=== PATIENT | male | born 1945 | race African-American/Black ===

== ENCOUNTER 2016-12-01 05:40 | Inpatient (IN) | payer MEDICARE, OTHER ==
[~2016-12-01] VITALS: Ht 185.4 cm; Wt 88.0 kg
[2016-12-01] VITALS (9 sets, daily range): BP systolic 74–94; BP diastolic 44–54
[~2016-12-01 05:40] MED LIST: NORCO 5-325 TA1 EACH ORAL
[2016-12-01] MEDS ORDERED: Norco 5mg/325mg tab ORAL ONE (05:45)
[2016-12-01] MEDS ORDERED: CALCIUM ACETAT667 M1 PO (05:52)
[2016-12-01] MEDS ORDERED: SENSIPAR30 MG ORAL (05:52)
[2016-12-01] MEDS ORDERED: AMIODARONE HCL400 M1 ORAL (05:52)
[2016-12-01] MEDS ORDERED: MECLIZINE HCL25 MG ORAL (05:52)
[2016-12-01] MEDS ORDERED: WARFARIN SODIUM2 MG ORAL (05:52)
[2016-12-01] MEDS ORDERED: MIDODRINE HCL10 MG ORAL (05:52)
[2016-12-01] MEDS ORDERED: LORATADINE10 M2 PO (05:52)
[2016-12-01] MEDS ORDERED: ATORVASTATIN CA40 MG ORAL (05:52)
[2016-12-01] MEDS ORDERED: RENVELA0.8 GM ORAL (05:52)
[2016-12-01] MEDS ORDERED: Midodrine 10mg tab ORAL ONE (06:00)
[2016-12-01 06:05] LABS: MEAN CORPUSCULAR HGB CONC 29.7 G/DL (32.0-36.0); MEAN CORPUSCULAR VOLUME 101 FL (80-99); MEAN PLATELET VOLUME 7.1 FL (6.5-10.1); PLATELET COUNT 131 K/UL (150-450); RED BLOOD COUNT 1.95 M/UL (4.70-6.10); RED CELL DISTRIBUTION WIDTH 19.3 % (11.6-14.8); WHITE BLOOD COUNT 7.5 K/UL (4.8-10.8)
--- NOTE | 2016-12-01 06:16 | Emergency Room Report ---
History of Present Illness General Chief Complaint: Syncope Source: Patient Present Illness HPI This is a 71-year-old male with multiple medical problems. He has a history renal failure on hemodialysis Monday, Monday, Monday, and Monday. His blood pressure normally runs low. Usually runs around systolic 80-90. He has to take Midorin to get his blood pressure up. He walks with a walker and also uses a wheelchair. He had a syncopal episode when he stood up tonight. He fell and hit his wheelchair the floor. This occurred twice. He hit his head also. He also complaining of neck pain, right shoulder, and right wrist pain. Pain is 8/10. He also has a history atrial fibrillation on Coumadin. He said that he has a leaky valve. EMS gave him IV fluid. Here he received around 300-400 mL on arrival. Allergies: Coded Allergies: IBUPROFEN (Verified Allergy, Unknown, 11/14/11) PENICILLIN G (Verified Allergy, Unknown, 11/14/11) Patient History Past Medical History: see triage record, old chart reviewed, renal disease, dialysis Past Surgical History: other Pertinent Family History: none Social History: Denies: smoking Immunizations: other Reviewed Nursing Documentation: PMH: Agreed, PSxH: Agreed Nursing Documentation-PMH Hx Cardiac Problems: Yes - LEAKY VALVE, LOW BP Hx Dialysis: Yes - MW Review of Systems Eye: Denies: blurred vision, eye pain ENT: Denies: ear pain, nose congestion, throat swelling Respiratory: Denies: cough, shortness of breath Cardiovascular: Denies: chest pain, palpitations Gastrointestinal: Denies: abdominal pain, diarrhea, nausea, vomiting Musculoskeletal: Reports: joint pain, joint swelling, Denies: back pain Skin: Denies: rash Neurological: Denies: headache, numbness Endocrine: Denies: increased thirst, increased urine Hematologic/Lymphatic: Denies: easy bruising All Other Systems: negative except mentioned in HPI Physical Exam Vital Signs Date Time Temp Pulse Resp B/P Pulse Ox O2 Delivery O2 Flow Rate FiO2 12/01/16 05:38 97.5 78 20 69/50 98 Room Air vitals with hypotension Sp02 EP Interpretation: reviewed, normal General Appearance: well appearing, no apparent distress, alert Head: normocephalic, atraumatic Eyes: bilateral eye EOMI, bilateral eye PERRL ENT: hearing grossly normal, normal pharynx Neck: full range of motion, supple, no meningismus Respiratory: chest non-tender, lungs clear, normal breath sounds Cardiovascular #1: systolic murmur, irregularly irregular Gastrointestinal: normal bowel sounds, non tender, no mass, no organomegaly, no bruit, non-distended Musculoskeletal: back normal, normal range of motion, other - Mild tenderness to palpation over right shoulder. No deformity. Tender to palpation over the dorsum of right wrist. Decreased range of motion secondary to pain. Radial pulses 2+. Psychiatric: mood/affect normal Skin: warm/dry Procedures Critical Care Time Critical Care Time Critical care is mandated in this patient who presented with syncope secondary to hypotension.. Patient require my urgent intervention to attenuate the risks of metabolic labs which may lead to cardiovascular collapse and . Critical care time is 35 minutes excluding any reportable procedure. Critical care time included evaluation, multiple reevaluation, looking at old charts, interpreting laboratory and diagnostic data, discussing case with patient and family and consultants, and charting. Splinting Splinting : Consent: Verbal Location: right wrist Pre-Made Type: velcro Splint: volar Pre-Proc Neuro Vasc Exam: normal Post-Proc Neuro Vasc Exam: normal Patient Tolerated: Well Complications: None Medical Decision Making Diagnostic Impression: Primary Impression: Syncope Qualified Codes: R55 - Syncope and collapse Additional Impressions: Anemia in chronic kidney disease Head injury due to trauma Qualified Codes: S09.90XA - Unspecified injury of head, initial encounter Cervical strain, acute Qualified Codes: S16.1XXA - Strain of muscle, fascia and tendon at neck level , initial encounter Contusion of right shoulder Qualified Codes: S40.011A - Contusion of right shoulder, initial encounter Right wrist sprain Qualified Codes: S63.501A - Unspecified sprain of right wrist, initial encounter Degenerative disc disease, cervical Atrial fibrillation Qualified Codes: I48.2 - Chronic atrial fibrillation Hypotension, unspecified 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 He is very anemic. He is more hypertensive than he usually is. His mentation is normal here. My read the CT head showed no evidence of any bleed. Lab work is still pending. INR still pending. Is no evidence any fracture dislocation. Patient will be admitted for blood transfusion. Because of his cardiac issue, he will probably dialysis afterward. Laboratory Tests Test 12/01/16 05:52 White Blood Count 7.5 K/UL (4.8-10.8) Red Blood Count 1.95 M/UL (4.70-6.10) L Hemoglobin 5.9 G/DL (14.2-18.0) *L Hematocrit 19.7 % (42.0-52.0) L Mean Corpuscular Volume 101 FL (80-99) H Mean Corpuscular Hemoglobin 30.0 PG (27.0-31.0) Mean Corpuscular Hemoglobin Concent 29.7 G/DL (32.0-36.0) L Red Cell Distribution Width 19.3 % (11.6-14.8) H Platelet Count 131 K/UL (150-450) L Mean Platelet Volume 7.1 FL (6.5-10.1) Neutrophils (%) (Auto) % (45.0-75.0) Lymphocytes (%) (Auto) % (20.0-45.0) Monocytes (%) (Auto) % (1.0-10.0) Eosinophils (%) (Auto) % (0.0-3.0) Basophils (%) (Auto) % (0.0-2.0) Neutrophils % (Manual) Pending Lymphocytes % (Manual) Pending Platelet Estimate Pending Platelet Morphology Pending Prothrombin Time 54.5 SEC (9.30-11.50) H Prothromb Time International Ratio 5.1 (0.9-1.1) *H Activated Partial Thromboplast Time 42 SEC (23-33) H Sodium Level 141 mEQ/L (135-145) Potassium Level 4.2 mEQ/L (3.4-4.9) Chloride Level 98 mEQ/L (98-107) Carbon Dioxide Level 26 mEQ/L (20-30) Anion Gap 17 (5-15) H Blood Urea Nitrogen 46 mg/dL (7-23) H Creatinine 6.8 mg/dL (0.7-1.2) H Estimat Glomerular Filtration Rate mL/min (>60) Glucose Level 99 mg/dL (74-106) Calcium Level 8.3 mg/dL (8.6-10.2) L Total Bilirubin 0.4 mg/dL (0.0-1.2) Aspartate Amino Transf (AST/SGOT) 25 U/L (5-40) Alanine Aminotransferase (ALT/SGPT) 12 U/L (3-41) Alkaline Phosphatase 82 U/L (40-129) Total Creatine Kinase 101 U/L (38-174) Creatine Kinase MB Pending Troponin I < 0.30 ng/mL (<=0.30) Total Protein 5.3 g/dL (6.6-8.7) L Albumin 3.2 g/dL (3.5-5.2) L Globulin 2.1 g/dL Albumin/Globulin Ratio 1.5 (1.0-2.7) Lab Results Impression labs with severe anemia and elevated INR. EKG Diagnostic Results Rate: normal Rhythm: other - afib/aflutter ST Segments: no acute changes Rhythm Strip Diag. Results EP Interpretation: yes Rate: 70 Rhythm: no PVC's, no ectopy, other Chest X-Ray Diagnostic Results EP Interpretation: Yes Findings: no consolidation, no pneumothorax, other - CM with vasc congestion Number of Views: 1 Other Impression Xrays of right wrist: interpreted by me. No frx. no dislocation. No STS. Other X-Ray Diagnostic Results Other X-Ray Diagnostic Results : X-Ray Ordered: Xrays of Right shoulder Date: Dec 01, 2016 Time: 06:26 EP Interpretation: Yes Findings: no fractures, no dislocation, no soft tissue swelling Number of Views: 3 CT/MRI/US Diagnostic Results CT/MRI/US Diagnostic Results : Imaging Test Ordered: CT head and CT Cspine Impression CT head: read by radiologist as neg. CT C spine: read by radiologist as degenerative changes. No frx. Last Vital Signs Date Time Temp Pulse Resp B/P Pulse Ox O2 Delivery O2 Flow Rate FiO2 12/01/16 05:38 97.5 78 20 69/50 98 Room Air Disposition: ADMITTED INPATIENT Condition: Serious YESICA LARSON M.D. Dec 01, 2016 06:16
[2016-12-01 06:22] LABS: PROTHROMBIN TIME 54.5 SEC (9.30-11.50)
[2016-12-01 06:27] LABS: ALANINE AMINOTRANSFERASE 12 U/L (3-41); ALBUMIN/GLOBULIN RATIO 1.5 (1.0-2.7); ANION GAP 17 (5-15); ASPARTATE AMINO TRANSFERASE 25 U/L (5-40); CALCIUM 8.3 mg/dL (8.6-10.2); CARBON DIOXIDE 26 mEQ/L (20-30); CHLORIDE 98 mEQ/L (98-107); CREATININE 6.8 mg/dL (0.7-1.2); HEMOLYSIS 34; POTASSIUM 4.2 mEQ/L (3.4-4.9); SODIUM 141 mEQ/L (135-145); TOTAL PROTEIN 5.3 g/dL (6.6-8.7)
[2016-12-01 06:34] LABS: INR 5.1 (0.9-1.1)
[2016-12-01 06:39] LABS: TROPONIN I < 0.30 ng/mL (<=0.30)
[2016-12-01 08:39] LABS: EOSINOPHILS % (MANUAL) 2 % (0-3); LYMPHOCYTES % (MANUAL) 11 % (20-45); NEUTROPHILS % (MANUAL) 74 % (45-75); TOTAL CELLS COUNTED 100
[2016-12-01 08:40] LABS: ANISOCYTOSIS 1+; BAND NEUTROPHILS % (MANUAL) 0 % (0-8); BASOPHILS % (MANUAL) 0 % (0-2); HYPOCHROMASIA 1+; MACROCYTES 1+; PLATELET ESTIMATE DECREASED; PLATELET MORPHOLOGY NORMAL
--- NOTE | 2016-12-01 09:50 | Diagnostic Imaging Report ---
Indication: Evidence of frontal scalp soft tissue injury Technique: spiral acquisitions obtained through the brain. Angled axial and coronal 5 x 5 mm slices were reconstructed. No IV contrast utilized. Radiation dose was minimized using automated exposure control Total dose length product 1432 mGycm. CTDIvol(s) 70 mGy Comparison: none FINDINGS: No acute hemorrhage or edema. No mass effect or midline shift. There is age-related enlargement of the ventricles and extra axial CSF spaces. There is periventricular deep white matter ischemic change. Normal rust-white differentiation. Visualized orbits are unremarkable. There is minimal bilateral maxillary sinus mucosal disease. Intact calvarium. There is soft tissue swelling of the high Central parietal scalp. This is best appreciated on the coronal images. IMPRESSION: Chronic and age-related changes. Negative for acute intracranial bleed or mass effect Minimal sinus disease This agrees with the preliminary interpretation provided overnight by [facility]. The CT scanner at [facility] is accredited by the [employer] and the scans are performed using protocols designed to limit radiation exposure to as low as reasonably achievable to attain images of sufficient resolution adequate for diagnostic evaluation
--- NOTE | 2016-12-01 11:00 | Diagnostic Imaging Report ---
Indication: TRAUMA Technique: Spiral acquisitions obtained through the cervical spine. No IV contrast utilized. Multiplanar reconstructions were generated. Total dose length product 507 mGycm. CTDIvol(s) 18 mGy Comparison: None Findings: Bony alignment normal. No prevertebral soft tissue swelling. No acute fractures. No dislocations. Vertebral body heights are preserved. There is multilevel disc degeneration There is narrowing of the anterior atlantoaxial joint. At C2-3, there is mild degenerative disc narrowing. Posterior broad-based disc protrusion results in mild narrowing of the spinal canal, exacerbated slightly by ligamentum flavum hypertrophy. Is minimal narrowing of the bilateral neural foramina. There is mild bilateral facet degeneration, left and right. At C3-4, there is severe degenerative disc narrowing. There is mild left, moderate right neural foraminal stenosis area no significant disc bulge or protrusion or spinal stenosis. There is bilateral mild facet degeneration. At C4-5, there is minimal degenerative disc narrowing. There is mild bilateral neural foraminal stenosis. No significant disc bulge or protrusion or spinal stenosis At C5-6, there is severe degenerative disc narrowing. There is degenerative remodeling of the C5 vertebral body. No significant disc bulge or protrusion or spinal stenosis. There is mild bilateral neural foraminal stenosis. At C6-7 and C7-T1, no significant disc bulge or protrusion, spinal stenosis, or neural foraminal stenosis There are small bilateral pleural effusions. Unusual submucosal calcifications are seen within the, time tonsils bilaterally, right greater than left. Impression: No acute bony trauma. Degenerative changes, as delineated on a level by level basis above Incidental finding of small bilateral pleural effusions Other findings as described This agrees with the preliminary interpretation provided overnight by [facility]. The CT scanner at [facility] is accredited by the [employer] and the scans are performed using protocols designed to limit radiation exposure to as low as reasonably achievable to attain images of sufficient resolution adequate for diagnostic evaluation.
--- NOTE | 2016-12-01 13:03 | Diagnostic Imaging Report ---
Indication: TRAUMA Technique: 3 views of the right shoulder Comparison: none Findings: No acute fractures. No dislocations. The joint spaces are preserved Impression:Negative
[2016-12-01] MEDS: Norco 5mg/325mg tab ORAL PRN (13:14)
--- NOTE | 2016-12-01 13:46 | Diagnostic Imaging Report ---
Clinical Indication:TRAUMA Technique: 3 views of the right wrist Comparison: None Findings: On the lateral view, there is a nondisplaced fracture of the triquetrum. No other acute fractures. No dislocations. The joint spaces are preserved Impression: Positive for nondisplaced triquetral fracture Findings discussed by phone with Dr. Noriega in the emergency room at the time of interpretation
--- NOTE | 2016-12-01 13:46 | Diagnostic Imaging Report ---
Indication: Chest pain Technique: One view of the chest Comparison: 05/31/2012 Findings: There is persistent mild elevation left hemidiaphragm. Some pleural fluid is now present on the right. There may be some congestive changes at the right lung base as well. The heart size is borderline enlarged. Evidence of prior CABG again demonstrated Impression: Right-sided pleural effusion and possible right-sided congestive changes. Borderline cardiomegaly Other findings as noted This agrees with the preliminary interpretation provided by the emergency room physician
--- NOTE | 2016-12-01 15:31 | Consultation ---
Consult Note Assessment/Plan Nephrology consult dictated #[id number] ELO IYER Dec 01, 2016 15:31
[2016-12-01] MEDS: Meclizine 25mg tab ORAL SCH ×2 (16:27→22:03)
[2016-12-01 16:43] LABS: FERRITIN 218 ng/mL (10-230)
[2016-12-01 17:53] LABS: HEMOLYSIS 8; IRON 69 ug/dL (59-158); TOTAL IRON BINDING CAPACITY 218 ug/dL (250-400)
[2016-12-01] MEDS: Renvela 800mg Pkt ORAL SCH (18:29)
[2016-12-01] MEDS: Midodrine 10mg tab ORAL SCH (18:30)
--- NOTE | 2016-12-01 20:08 | History and Physical Report ---
DATE OF ADMISSION: 12/01/2016 HISTORY OF PRESENT ILLNESS: The patient was admitted and seen on 12/01/2016. The patient is a very pleasant 71-year-old man who is a dialysis patient. He does the dialysis 4 times a week. He had dialysis yesterday and reports that he got home and was dizzy when he stood up. He fainted briefly. This morning when he got out of the bed he fainted again and was unconscious he believes for a few seconds. He was brought to the emergency department by paramedics. He was found to have hemoglobin of 5. His INR is 5.1. He is on Coumadin for arrhythmia. PAST MEDICAL HISTORY: He was last hospitalized in March 2016 at [facility]. 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 He has in the past hypertension, but now is hypotensive. He may have chronic obstructive pulmonary disease. History of renal cell adenocarcinoma and history of epidural abscess. ALLERGIES: Ibuprofen and penicillin. MEDICATIONS: Reviewed, he is on Coumadin. REVIEW OF SYSTEMS: He states that he has poor appetite. He is able to live independently. He has no chest pain or shortness of breath at this time. He is a past smoker. He has no sign of melena, but says that he has had a small amount of blood in the stool at times. PHYSICAL EXAMINATION: GENERAL: The patient is alert and responds appropriately. VITAL SIGNS: Show that his blood pressure has been low, down to 74/47 and 69/50 when he arrived, but presently it is up to 83/53 and 94/54. His heart rhythm is irregular and the rate is 58 to 75. Saturation is normal on room air. There is no fever. HEENT: Head is normocephalic. NECK: No jugular venous distention. CHEST: Clear. CARDIAC: Rhythm is irregular without murmur or gallop. ABDOMEN: Soft and nontender. Liver and spleen not enlarged. EXTREMITIES: No clubbing, cyanosis, or edema. SURGICAL HISTORY: Includes bilateral nephrectomy, cardiac valve surgery, hernia repair, joint replacement, dialysis, fistulas, back surgery, and tricuspid valve replacement. LABORATORY STUDIES: Reviewed. The INR is 5.1. Hemoglobin is 5.9, hematocrit 19.7, white count is normal, and platelet count is 131,000. Chemistry shows BUN of 46 and creatinine 6.8. Albumin is 3.2. IMPRESSIONS: 1. Syncope. 2. Severe anemia, possible gastrointestinal bleed. 3. Severe coagulopathy with INR 5.1 due to therapeutic overdose of Coumadin. 4. End-stage renal disease, on dialysis 4 days weekly. 5. History of valvular heart disease. 6. Atrial flutter. 7. Chronic hypotension, now severely hypotensive. PLAN: The patient was transfused in the emergency department with 2 units of packed red cells. He will be dialyzed tomorrow. He does not appear to be fluid overloaded at this time. Midodrine was continued. Coumadin was held. We will check stool for occult blood. I do not believe we need to give vitamin K at the moment. Fidel Mendoza M.D. DR: SONNY JOB#: [id number] CC: Melquiades Mcneal M.D. ; Fax#: [phone] Sullivan M.D.; Fax#: [phone] Mendoza M.D.; Fax#: [phone]
--- NOTE | 2016-12-01 20:18 | Consultation ---
DATE OF CONSULTATION: 12/01/2016 NEPHROLOGY CONSULTATION CONSULTING PHYSICIAN: Jewel Sullivan M.D. REFERRING PHYSICIAN: Fidel Mendoza M.D. REASON FOR CONSULT: The patient with end-stage renal disease, has presented with some syncope and was found to have severe anemia. HISTORY OF PRESENT ILLNESS: This is a very pleasant, 71-year-old, male with a history of end-stage renal disease secondary to polycystic kidney disease, who has been on hemodialysis since 2004. He is getting dialyzed on Monday, Monday, and Monday. Apparently, he got dialyzed yesterday on 11/30/2016 and afterwards while he was standing up he felt kind of lightheaded and passed out and it happened a second time. Paramedics were called and he was subsequently was brought to the emergency room of [facility] for further evaluation. He is on Coumadin for paroxysmal atrial fibrillation and he was found to have a INR in the range of 5.1. He states he has had some trickle blood from the rectum and some dark stools but it was not that significant. He does not have any flank pain and he was found to have a hemoglobin of 5.9 g/dL. Subsequently, he has been admitted to the hospital and I have been asked to see him for his hemodialysis needs. He denies any orthopnea or increasing shortness of breath at this point. PAST MEDICAL HISTORY: Significant for longstanding hypertension, end-stage renal disease secondary to polycystic kidney disease. He has had mechanical aortic valve, which was eventually removed and replaced by a pig valve. He has paroxysmal atrial fibrillation and has had a renal cell carcinoma status post bilateral nephrectomies. Also, he has had staph bacteremia, which apparently caused some epidural abscess also. PAST SURGICAL HISTORY: Status post aortic valve replacement initially mechanical and secondarily was replaced by a pig valve, status post bilateral nephrectomy, status post inguinal hernia repair, status post left knee replacement, status post left arm AV graft creation, status post back surgery for epidural abscess, status post mitral valve replacement, and status post tricuspid valve replacement with a bypass. MEDICATIONS: Prior to admission has been amiodarone 400 mg p.o. q.12 hours, atorvastatin 40 mg p.o. daily, calcium acetate 667 mg 2 tablets p.o. t.i.d. with each meal, 30 mg p.o. daily, Spring 5/325 mg q.6 hours p.r.n., Claritin 10 mg p.o. q.h.s., meclizine 25 mg p.o. t.i.d., midodrine 10 mg p.o. t.i.d., sevelamer 800 mg p.o. t.i.d. with each meal and warfarin 2 mg p.o. daily. ALLERGIES: Ibuprofen and penicillin. SOCIAL HISTORY: He is a former smoker. He smokes about a pack of cigarettes per day for total of 30 years. He quit 20 years ago. Denies any alcohol abuse. He is and has five children. 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 FAMILY HISTORY: The younger child has also polycystic kidney disease. He is on dialysis and seems like he is on peritoneal dialysis. REVIEW OF SYSTEMS: General: He has not had any significant weight change. Denies any chills or fever. Cardiovascular: Denies any chest pain, dyspnea with exertion, or orthopnea. Urinary: He is aneuric on hemodialysis. Neurological: Denies any paresthesia, muscle weakness, diplopia, or seizure. Gastrointestinal: He has had some small amount of rectal bleeding. I am not sure if he had melena but he has had some dark stools apparently. Respiratory: Denies any cough, purulent sputum production, hemoptysis, or wheezing. Endocrine: Never been diagnosed with diabetes mellitus. No polydipsia, polyuria, cold or heat intolerance. Hematological: He has been very anemic. He has noticed some easy bruising recently. Skin: Denies any rash or photosensitivity. The remainder of the review of the systems has been essentially negative. PHYSICAL EXAMINATION: GENERAL: He does not seem to be in much acute distress, lying down in bed flat. VITAL SIGNS: Blood pressure is 83/53, pulse of 75, respiration 18, and temperature 97.3 degrees. HEENT: Head is atraumatic. Eyes, pupils are reactive to light. No evidence of papilledema. Ears, canals are clear. Tympanic membranes are intact. Nose, nares are patent without any nasal discharge. Throat without inflammation or exudate. NECK: Supple. Jugular venous distention is within normal limits. No cervical adenopathy. No thyromegaly. HEART: Irregularly irregular. There is a 2/6 holosystolic murmur at the apex. LUNGS: Clear to auscultation. ABDOMEN: Soft. Bowel sounds positive. No hepatosplenomegaly. No evidence of CVA tenderness. EXTREMITIES: Lower extremity shows trace pedal edema. NEUROLOGICAL: Cranial nerves are intact. There is no focal neurological deficits present. LABORATORY DATA: Showing an INR of 5.1 with a Pro-time of 54.5. Sodium 141, potassium 4.2, chloride 98, carbon dioxide 26, BUN 46, and creatinine 6.8. Albumin is 3.2. LFTs within normal range. WBC 7.5, hemoglobin 5.9, hematocrit 19.7, and platelets 131,000. IMPRESSION: 1. Severe anemia most likely due to acute bleed. We need to rule out gastrointestinal bleed versus retroperitoneal bleed. 2. Evidence of hypoprothrombinemia probably at the origin of bleeding. 3. End-stage renal disease. 4. Chronic atrial fibrillation. 5. He does not seem to be in congestive heart failure at this point. PLAN: I am going to arrange for hemodialysis tomorrow. He needs to have 2 units of blood transfusion today. We are going to do some workup for anemia and a CAT scan of the abdomen and pelvis is going to be obtained to rule out retroperitoneal bleed. He might need to have a gastrointestinal consult. Stool OB is going to be sent also. Jewel Sullivan M.D. DR: DILIP JOB#: [id number] CC:
[2016-12-01] MEDS: Amiodarone 200mg tab ORAL SCH (22:01)
[2016-12-01] MEDS: Atorvastatin 80mg tab ORAL SCH (22:01)
[2016-12-01] MEDS: Calcium Acetate 667mg Tab ORAL SCH (22:01)
[2016-12-01] MEDS: Miralax 17gm pkt ORAL PRN (22:09)
[2016-12-02] VITALS (9 sets, daily range): BP systolic 73–87; BP diastolic 32–55
[2016-12-02] MEDS: Norco 5mg/325mg tab ORAL PRN ×3 (00:33→20:54)
[2016-12-02] MEDS: Miralax 17gm pkt ORAL PRN (09:38)
[2016-12-02] MEDS: Meclizine 25mg tab ORAL SCH ×3 (09:39→18:00)
[2016-12-02] MEDS: Amiodarone 200mg tab ORAL SCH (09:39)
[2016-12-02] MEDS: Renvela 800mg Pkt ORAL SCH ×5 (09:39→18:00)
[2016-12-02] MEDS: Midodrine 10mg tab ORAL SCH ×3 (09:40→18:00)
[2016-12-02 11:31] LABS: MEAN CORPUSCULAR HEMOGLOBIN 30.9 PG (27.0-31.0); MEAN CORPUSCULAR HGB CONC 31.4 G/DL (32.0-36.0); MEAN CORPUSCULAR VOLUME 98 FL (80-99); MEAN PLATELET VOLUME 5.6 FL (6.5-10.1); PLATELET COUNT 127 K/UL (150-450); RED BLOOD COUNT 1.72 M/UL (4.70-6.10); RED CELL DISTRIBUTION WIDTH 17.9 % (11.6-14.8); WHITE BLOOD COUNT 6.3 K/UL (4.8-10.8)
[2016-12-02 11:53] LABS: ALANINE AMINOTRANSFERASE 9 U/L (3-41); ALBUMIN/GLOBULIN RATIO 1.5 (1.0-2.7); ANION GAP 13 (5-15); ASPARTATE AMINO TRANSFERASE 16 U/L (5-40); CALCIUM 8.4 mg/dL (8.6-10.2); CARBON DIOXIDE 28 mEQ/L (20-30); CHLORIDE 94 mEQ/L (98-107); CREATININE 9.8 mg/dL (0.7-1.2); HEMOLYSIS 3; POTASSIUM 4.5 mEQ/L (3.4-4.9); SODIUM 135 mEQ/L (135-145); TOTAL PROTEIN 4.6 g/dL (6.6-8.7)
[2016-12-02 12:19] LABS: ANISOCYTOSIS 1+; BAND NEUTROPHILS % (MANUAL) 2 % (0-8); EOSINOPHILS % (MANUAL) 2 % (0-3); LYMPHOCYTES % (MANUAL) 12 % (20-45); NEUTROPHILS % (MANUAL) 78 % (45-75); PLATELET MORPHOLOGY NORMAL; POIKILOCYTOSIS 1+; TOTAL CELLS COUNTED 100
[2016-12-02 12:20] LABS: BASOPHILS % (MANUAL) 0 % (0-2); HYPOCHROMASIA OCCASIONAL; PLATELET ESTIMATE ADEQUATE
--- NOTE | 2016-12-02 14:26 | Nephrology Progress Note ---
Assessment/Plan Assessment 1) ESRD 2) Continues to bleed, most likely GI bleed 3) Hypoprothrombinemia Plan: Will need GI consult Will type and cross 3 units of blood and 2 units of FFP to be [id number] with HD today Also DDVAP IV Subjective Subjective He is feeling weak and sob, HGB down to 5.3, he is having dark stool, INR was not checked, feels dizzy standing up, CT of abd + pelvis was negative for retroperitoneal bleed, stool ob is negative Objective Objective Last 24 Hour Vital Signs Date Time Temp Pulse Resp B/P Pulse Ox O2 Delivery O2 Flow Rate FiO2 12/02/16 11:26 98.1 95 20 73/37 100 Nasal Cannula 3.0 12/02/16 08:17 97.2 98 20 79/39 100 Nasal Cannula 3.0 12/02/16 08:00 73 12/02/16 04:15 85/55 12/02/16 04:01 98.4 74 21 80/34 97 Nasal Cannula 12/02/16 04:00 76 12/02/16 01:00 84/46 12/02/16 00:30 98.7 68 20 87/32 98 Nasal Cannula 2.0 12/02/16 00:00 73 12/01/16 20:00 97.7 58 18 87/50 Nasal Cannula 2.0 100 12/01/16 20:00 68 12/01/16 16:00 72 12/01/16 16:00 97.0 58 18 82/44 Nasal Cannula 2.0 100 12/01/16 15:00 97.3 75 18 83/53 99 Room Air Laboratory Tests 12/01/16 16:35: Folate [Pending] 12/02/16 00:30: Stool Occult Blood Positive 12/02/16 11:10: White Blood Count 6.3, Red Blood Count 1.72L, Hemoglobin 5.3*L, Hematocrit 16.9L , Mean Corpuscular Volume 98, Mean Corpuscular Hemoglobin 30.9, Mean Corpuscular Hemoglobin Concent 31.4L, Red Cell Distribution Width 17.9H, Platelet Count 127L, Mean Platelet Volume 5.6L, Neutrophils (%) (Auto) , Lymphocytes (%) (Auto) , Monocytes (%) (Auto) , Eosinophils (%) (Auto) , Basophils (%) (Auto) , Differential Total Cells Counted 100, Neutrophils % ( Manual) 78H, Lymphocytes % (Manual) 12L, Monocytes % (Manual) 6, Eosinophils % ( Manual) 2, Basophils % (Manual) 0, Band Neutrophils 2, Platelet Estimate Adequate, Platelet Morphology Normal, Hypochromasia Occasional, Poikilocytosis 1 +, Anisocytosis 1+, Sodium Level 135, Potassium Level 4.5, Chloride Level 94L, Carbon Dioxide Level 28, Anion Gap 13, Blood Urea Nitrogen 93#H, Creatinine 9.8H , Estimat Glomerular Filtration Rate , Glucose Level 97, Calcium Level 8.4L, Total Bilirubin 0.3, Aspartate Amino Transf (AST/SGOT) 16, Alanine Aminotransferase (ALT/SGPT) 9, Alkaline Phosphatase 72, Total Protein 4.6L, Albumin 2.8L, Globulin 1.8, Albumin/Globulin Ratio 1.5 Height (Feet): 6 Height (Inches): 2.00 Weight (Pounds): 194 General Appearance: WD/WN, no apparent distress EENT: PERRL/EOMI Neck: non-tender Cardiovascular: normal peripheral pulses, normal rate Abdomen: normal bowel sounds, non tender, soft Extremities: normal range of motion Neurologic: target man II-XII grossly normal ELO IYER Dec 02, 2016 14:26
[2016-12-02] MEDS ORDERED: Desmopressin (DDAVP) Inj IV ONE (14:30)
--- NOTE | 2016-12-02 14:38 | General Progress Note ---
Assessment/Plan Assessment/Plan 1. Syncope. 2. Severe anemia, possible gastrointestinal bleed. 3. Severe coagulopathy with INR 5.1 due to therapeutic overdose of Coumadin. 4. End-stage renal disease, on dialysis 4 days weekly. 5. History of valvular heart disease. 6. Atrial flutter. 7. Chronic hypotension, now severely hypotensive. Hgb lower after 2 u transfusion still feels dizzy, weak stool + OB called GI add Protonix transfuse HD Subjective ROS Limited/Unobtainable: No Constitutional: Reports: weakness Hematologic/Lymphatic: Reports: anemia Allergies: Coded Allergies: IBUPROFEN (Verified Allergy, Unknown, 11/14/11) PENICILLIN G (Verified Allergy, Unknown, 11/14/11) Objective Last 24 Hour Vital Signs Date Time Temp Pulse Resp B/P Pulse Ox O2 Delivery O2 Flow Rate FiO2 12/02/16 11:26 98.1 95 20 73/37 100 Nasal Cannula 3.0 12/02/16 08:17 97.2 98 20 79/39 100 Nasal Cannula 3.0 12/02/16 08:00 73 12/02/16 04:15 85/55 12/02/16 04:01 98.4 74 21 80/34 97 Nasal Cannula 12/02/16 04:00 76 12/02/16 01:00 84/46 12/02/16 00:30 98.7 68 20 87/32 98 Nasal Cannula 2.0 12/02/16 00:00 73 12/01/16 20:00 97.7 58 18 87/50 Nasal Cannula 2.0 100 12/01/16 20:00 68 12/01/16 16:00 72 12/01/16 16:00 97.0 58 18 82/44 Nasal Cannula 2.0 100 12/01/16 15:00 97.3 75 18 83/53 99 Room Air Laboratory Tests 12/01/16 16:35: Folate [Pending] 12/02/16 00:30: Stool Occult Blood Positive 12/02/16 11:10: White Blood Count 6.3, Red Blood Count 1.72L, Hemoglobin 5.3*L, Hematocrit 16.9L , Mean Corpuscular Volume 98, Mean Corpuscular Hemoglobin 30.9, Mean Corpuscular Hemoglobin Concent 31.4L, Red Cell Distribution Width 17.9H, Platelet Count 127L, Mean Platelet Volume 5.6L, Neutrophils (%) (Auto) , Lymphocytes (%) (Auto) , Monocytes (%) (Auto) , Eosinophils (%) (Auto) , Basophils (%) (Auto) , Differential Total Cells Counted 100, Neutrophils % ( Manual) 78H, Lymphocytes % (Manual) 12L, Monocytes % (Manual) 6, Eosinophils % ( Manual) 2, Basophils % (Manual) 0, Band Neutrophils 2, Platelet Estimate Adequate, Platelet Morphology Normal, Hypochromasia Occasional, Poikilocytosis 1 +, Anisocytosis 1+, Sodium Level 135, Potassium Level 4.5, Chloride Level 94L, Carbon Dioxide Level 28, Anion Gap 13, Blood Urea Nitrogen 93#H, Creatinine 9.8H , Estimat Glomerular Filtration Rate , Glucose Level 97, Calcium Level 8.4L, Total Bilirubin 0.3, Aspartate Amino Transf (AST/SGOT) 16, Alanine Aminotransferase (ALT/SGPT) 9, Alkaline Phosphatase 72, Total Protein 4.6L, Albumin 2.8L, Globulin 1.8, Albumin/Globulin Ratio 1.5 Height (Feet): 6 Height (Inches): 2.00 Weight (Pounds): 194 General Appearance: no apparent distress Neck: supple Cardiovascular: normal rate Respiratory/Chest: lungs clear Abdomen: non tender, soft, no organomegaly DAYANA JOE Dec 02, 2016 14:38
--- NOTE | 2016-12-02 15:08 | Diagnostic Imaging Report ---
Indication: Abdominal pain. INR 5.1 Technique: Continuous helical transaxial imaging of the abdomen and pelvis was obtained from the lung bases to the pubic symphysis during intravenous contrast administration. Coronal 2-D reformats were also obtained. Study obtained in a Siemens sensation [address] Total Dose length Product (DLP): [address] Dose Index Volume (CTDIvol): 19 mGy Comparison: None Findings: Small bilateral pleural effusions with posterior basilar atelectasis demonstrated. Small hiatal hernia is present. There are several liver cysts. Gallstone noted. Arterial vascular calcifications are present. Punctate parenchymal calcifications in the pancreas noted. There is no retroperitoneal bleed, free fluid or free air identified. Bladder is unremarkable. There is thickening of the wall of the rectum. No evidence of bowel obstruction. Moderate stool noted. Laminectomy noted at L3 and L4. Impression: No retroperitoneal hematoma identified. Thickening of the wall of the rectum. Suspect proctitis Status post L3-L4 laminectomy. Atherosclerotic vascular disease Hiatal hernia Liver cysts Chronic calcific pancreatitis The CT scanner at [facility] is accredited by the [employer] and the scans are performed using protocols designed to limit radiation exposure to as low as reasonably achievable to attain images of sufficient resolution adequate for diagnostic evaluation.
[2016-12-02 15:35] LABS: PROTHROMBIN TIME 77.5 SEC (9.30-11.50)
[2016-12-02 15:46] LABS: INR 7.2 (0.9-1.1)
[2016-12-02] MEDS: Pantoprazole Inj IVP SCH (16:00)
[2016-12-02] MEDS ORDERED: NS IV ONE (16:00)
[2016-12-02] MEDS: Sensipar 30mg Tab ORAL SCH (16:00)
[2016-12-02] MEDS ORDERED: DESMOPRESSIN IV ONE (16:00)
[2016-12-02] MEDS ORDERED: Phytonadione 10 mg/mL 1ml amp SUBQ ONE (17:00)
[2016-12-02] MEDS ORDERED: Phytonadione 5 MG in D5W 55 ML IVPB ONE (17:30)
--- NOTE | 2016-12-02 20:35 | General Progress Note ---
Assessment/Plan Assessment/Plan Assessment - GI bleed - Coagulopathy - severe anemia - valvular heart disease - other list of medical problems as dictated Recommendations - FFP to be given STAT - Vitamin K as ordered - follow CBC and INR - possible EGD in next 24-48 hours, once INR corrected - PPI Subjective Allergies: Coded Allergies: IBUPROFEN (Verified Allergy, Unknown, 11/14/11) PENICILLIN G (Verified Allergy, Unknown, 11/14/11) Objective Last 24 Hour Vital Signs Date Time Temp Pulse Resp B/P Pulse Ox O2 Delivery O2 Flow Rate FiO2 12/02/16 16:00 96.6 59 18 80/47 Nasal Cannula 2.0 100 12/02/16 12:00 65 12/02/16 11:26 98.1 95 20 73/37 100 Nasal Cannula 3.0 12/02/16 08:17 97.2 98 20 79/39 100 Nasal Cannula 3.0 12/02/16 08:00 73 12/02/16 04:15 85/55 12/02/16 04:01 98.4 74 21 80/34 97 Nasal Cannula 12/02/16 04:00 76 12/02/16 01:00 84/46 12/02/16 00:30 98.7 68 20 87/32 98 Nasal Cannula 2.0 12/02/16 00:00 73 Laboratory Tests 12/02/16 00:30: Stool Occult Blood Positive 12/02/16 11:10: White Blood Count 6.3, Red Blood Count 1.72L, Hemoglobin 5.3*L, Hematocrit 16.9L , Mean Corpuscular Volume 98, Mean Corpuscular Hemoglobin 30.9, Mean Corpuscular Hemoglobin Concent 31.4L, Red Cell Distribution Width 17.9H, Platelet Count 127L, Mean Platelet Volume 5.6L, Neutrophils (%) (Auto) , Lymphocytes (%) (Auto) , Monocytes (%) (Auto) , Eosinophils (%) (Auto) , Basophils (%) (Auto) , Differential Total Cells Counted 100, Neutrophils % ( Manual) 78H, Lymphocytes % (Manual) 12L, Monocytes % (Manual) 6, Eosinophils % ( Manual) 2, Basophils % (Manual) 0, Band Neutrophils 2, Platelet Estimate Adequate, Platelet Morphology Normal, Hypochromasia Occasional, Poikilocytosis 1 +, Anisocytosis 1+, Sodium Level 135, Potassium Level 4.5, Chloride Level 94L, Carbon Dioxide Level 28, Anion Gap 13, Blood Urea Nitrogen 93#H, Creatinine 9.8H , Estimat Glomerular Filtration Rate , Glucose Level 97, Calcium Level 8.4L, Total Bilirubin 0.3, Aspartate Amino Transf (AST/SGOT) 16, Alanine Aminotransferase (ALT/SGPT) 9, Alkaline Phosphatase 72, Total Protein 4.6L, Albumin 2.8L, Globulin 1.8, Albumin/Globulin Ratio 1.5 12/02/16 14:30: Prothrombin Time 77.5H, Prothromb Time International Ratio 7.2*H, Activated Partial Thromboplast Time 57H Height (Feet): 6 Height (Inches): 2.00 Weight (Pounds): 194 CAROL ANN CARLOS Dec 02, 2016 20:35
[2016-12-03] VITALS: BP 77/45
[2016-12-03] MEDS: Calcium Acetate 667mg Tab ORAL SCH ×2 (02:15→21:06)
[2016-12-03] MEDS: Atorvastatin 80mg tab ORAL SCH ×2 (02:15→21:06)
[2016-12-03] MEDS: Amiodarone 200mg tab ORAL SCH ×3 (02:16→21:06)
[2016-12-03 04:00] VITALS: BP 89/49
[2016-12-03] MEDS: Norco 5mg/325mg tab ORAL PRN ×2 (06:43→17:12)
[2016-12-03 07:09] LABS: MEAN CORPUSCULAR HEMOGLOBIN 30.1 PG (27.0-31.0); MEAN CORPUSCULAR HGB CONC 32.4 G/DL (32.0-36.0); MEAN CORPUSCULAR VOLUME 93 FL (80-99); PLATELET COUNT 112 K/UL (150-450); RED BLOOD COUNT 2.25 M/UL (4.70-6.10); RED CELL DISTRIBUTION WIDTH 17.4 % (11.6-14.8); WHITE BLOOD COUNT 5.4 K/UL (4.8-10.8)
[2016-12-03 07:54] VITALS: BP 91/46
[2016-12-03 08:11] LABS: INR 2.5 (0.9-1.1); PROTHROMBIN TIME 25.9 SEC (9.30-11.50)
[2016-12-03] MEDS: Midodrine 10mg tab ORAL SCH ×3 (10:27→17:11)
[2016-12-03] MEDS: Renvela 800mg Pkt ORAL SCH ×3 (10:27→17:12)
[2016-12-03] MEDS: Sensipar 30mg Tab ORAL SCH (10:27)
[2016-12-03] MEDS: Meclizine 25mg tab ORAL SCH ×3 (10:27→17:11)
[2016-12-03] MEDS: Pantoprazole Inj IVP SCH (10:27)
[2016-12-03 10:32] LABS: ANISOCYTOSIS 1+; BAND NEUTROPHILS % (MANUAL) 0 % (0-8); BASOPHILS % (MANUAL) 0 % (0-2); EOSINOPHILS % (MANUAL) 3 % (0-3); HYPOCHROMASIA 1+; LYMPHOCYTES % (MANUAL) 14 % (20-45); NEUTROPHILS % (MANUAL) 76 % (45-75); PLATELET ESTIMATE DECREASED; PLATELET MORPHOLOGY NORMAL; TOTAL CELLS COUNTED 100
[2016-12-03] MEDS ORDERED: Tubing Blood Filter IV ONE ×2 (10:39→21:42)
[2016-12-03] MEDS ORDERED: NS 275ml ONE ×2 (10:39→21:42)
[2016-12-03 11:21] VITALS: BP 82/46
--- NOTE | 2016-12-03 13:06 | General Progress Note ---
Assessment/Plan Assessment/Plan Assessment - GI bleed - stablized - Coagulopathy - not corrected - severe anemia - better, but not yet optimal - valvular heart disease - other list of medical problems as dictated Recommendations - follow CBC and INR - more blood transfusion - possible EGD in next 24-48 hours, once INR corrected - PPI Subjective Allergies: Coded Allergies: IBUPROFEN (Verified Allergy, Unknown, 11/14/11) PENICILLIN G (Verified Allergy, Unknown, 11/14/11) Subjective Feels OK no further BM overnight no N/V INR not normal yet Objective Last 24 Hour Vital Signs Date Time Temp Pulse Resp B/P Pulse Ox O2 Delivery O2 Flow Rate FiO2 12/03/16 11:21 97.3 95 20 82/46 99 Nasal Cannula 3.0 12/03/16 07:54 97.2 94 20 91/46 99 Nasal Cannula 3.0 12/03/16 07:42 97.2 12/03/16 04:00 97.7 69 18 89/49 98 Room Air 12/03/16 04:00 58 12/03/16 00:00 97.9 68 20 77/45 97 Nasal Cannula 2.0 12/03/16 00:00 68 12/02/16 20:10 Nasal Cannula 2.0 12/02/16 20:00 76 12/02/16 20:00 97.5 66 18 76/36 Nasal Cannula 2.0 97 12/02/16 17:40 Nasal Cannula 2.0 12/02/16 16:00 96.6 59 18 80/47 Nasal Cannula 2.0 100 Intake and Output 12/02/16 12/03/16 19:00 07:00 Intake Total 470 ml 40 ml Output Total 175 ml Balance 470 ml -135 ml Intake Oral 470 ml IV Total 40 ml Output Hemodialysis UF 175 ml Laboratory Tests 12/02/16 14:30: Prothrombin Time 77.5H, Prothromb Time International Ratio 7.2*H, Activated Partial Thromboplast Time 57H 12/03/16 04:35: Prothrombin Time 25.9H, Prothromb Time International Ratio 2.5H, White Blood Count 5.4, Red Blood Count 2.25L, Hemoglobin 6.8*L, Hematocrit 20.9L, Mean Corpuscular Volume 93, Mean Corpuscular Hemoglobin 30.1, Mean Corpuscular Hemoglobin Concent 32.4, Red Cell Distribution Width 17.4H, Platelet Count 112L , Mean Platelet Volume 7.0, Neutrophils (%) (Auto) , Lymphocytes (%) (Auto) , Monocytes (%) (Auto) , Eosinophils (%) (Auto) , Basophils (%) (Auto) , Differential Total Cells Counted 100, Neutrophils % (Manual) 76H, Lymphocytes % (Manual) 14L, Monocytes % (Manual) 7, Eosinophils % (Manual) 3, Basophils % ( Manual) 0, Band Neutrophils 0, Platelet Estimate DecreasedL, Platelet Morphology Normal, Hypochromasia 1+, Anisocytosis 1+ Height (Feet): 6 Height (Inches): 2.00 Weight (Pounds): 194 Objective WDWN NCAT supple CTA RRR soft ND NT no edema nonfocal CAROL ANN CARLOS Dec 03, 2016 13:06
--- NOTE | 2016-12-03 14:20 | Nephrology Progress Note ---
Assessment/Plan Assessment 1) ESRD 2) Continues to bleed, most likely UGI bleed 3) Hypoprothrombinemia Plan: Received blood transfusion anf FFP's again today Hope EGD once INR is corrected Next HD on Monday Subjective Subjective He is feeling less dizzy, HGB is up to 6.8 after 3 units of PRBC's, INR is 2.5 post 2 units of FFP's, less melena, no c/p or sob Objective Objective Last 24 Hour Vital Signs Date Time Temp Pulse Resp B/P Pulse Ox O2 Delivery O2 Flow Rate FiO2 12/03/16 11:21 97.3 95 20 82/46 99 Nasal Cannula 3.0 12/03/16 07:54 97.2 94 20 91/46 99 Nasal Cannula 3.0 12/03/16 07:42 97.2 12/03/16 04:00 97.7 69 18 89/49 98 Room Air 12/03/16 04:00 58 12/03/16 00:00 97.9 68 20 77/45 97 Nasal Cannula 2.0 12/03/16 00:00 68 12/02/16 20:10 Nasal Cannula 2.0 12/02/16 20:00 76 12/02/16 20:00 97.5 66 18 76/36 Nasal Cannula 2.0 97 12/02/16 17:40 Nasal Cannula 2.0 12/02/16 16:00 96.6 59 18 80/47 Nasal Cannula 2.0 100 Intake and Output 12/02/16 12/03/16 19:00 07:00 Intake Total 470 ml 40 ml Output Total 175 ml Balance 470 ml -135 ml Intake Oral 470 ml IV Total 40 ml Output Hemodialysis UF 175 ml Laboratory Tests 12/02/16 14:30: Prothrombin Time 77.5H, Prothromb Time International Ratio 7.2*H, Activated Partial Thromboplast Time 57H 12/03/16 04:35: Prothrombin Time 25.9H, Prothromb Time International Ratio 2.5H, White Blood Count 5.4, Red Blood Count 2.25L, Hemoglobin 6.8*L, Hematocrit 20.9L, Mean Corpuscular Volume 93, Mean Corpuscular Hemoglobin 30.1, Mean Corpuscular Hemoglobin Concent 32.4, Red Cell Distribution Width 17.4H, Platelet Count 112L , Mean Platelet Volume 7.0, Neutrophils (%) (Auto) , Lymphocytes (%) (Auto) , Monocytes (%) (Auto) , Eosinophils (%) (Auto) , Basophils (%) (Auto) , Differential Total Cells Counted 100, Neutrophils % (Manual) 76H, Lymphocytes % (Manual) 14L, Monocytes % (Manual) 7, Eosinophils % (Manual) 3, Basophils % ( Manual) 0, Band Neutrophils 0, Platelet Estimate DecreasedL, Platelet Morphology Normal, Hypochromasia 1+, Anisocytosis 1+ Height (Feet): 6 Height (Inches): 2.00 Weight (Pounds): 194 General Appearance: WD/WN, no apparent distress EENT: PERRL/EOMI Neck: non-tender, normal alignment Cardiovascular: normal rate, regular rhythm Respiratory/Chest: chest wall non-tender, lungs clear Abdomen: normal bowel sounds, non tender, soft 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
[2016-12-03 14:51] LABS: MEAN CORPUSCULAR HEMOGLOBIN 29.8 PG (27.0-31.0); MEAN CORPUSCULAR VOLUME 93 FL (80-99); PLATELET COUNT 116 K/UL (150-450); RED BLOOD COUNT 2.61 M/UL (4.70-6.10); RED CELL DISTRIBUTION WIDTH 16.6 % (11.6-14.8); WHITE BLOOD COUNT 6.2 K/UL (4.8-10.8)
[2016-12-03 15:00] LABS: INR 2.3 (0.9-1.1); PROTHROMBIN TIME 23.6 SEC (9.30-11.50)
[2016-12-03 15:34] LABS: EOSINOPHILS % (MANUAL) 2 % (0-3); LYMPHOCYTES % (MANUAL) 14 % (20-45); NEUTROPHILS % (MANUAL) 81 % (45-75); TOTAL CELLS COUNTED 100
[2016-12-03 15:35] LABS: ANISOCYTOSIS 1+; HYPOCHROMASIA 1+; PLATELET MORPHOLOGY NORMAL
[2016-12-03 15:36] LABS: BAND NEUTROPHILS % (MANUAL) 0 % (0-8); BASOPHILS % (MANUAL) 0 % (0-2); PLATELET ESTIMATE DECREASED
[2016-12-03 16:00] VITALS: BP 89/51
--- NOTE | 2016-12-03 18:22 | Pulmonology Progress Note ---
Assessment/Plan Assessment/Plan 1. Syncope. 2. Severe anemia, possible gastrointestinal bleed. 3. Severe coagulopathy with INR 5.1 due to therapeutic overdose of Coumadin. 4. End-stage renal disease, on dialysis 4 days weekly. 5. History of valvular heart disease. 6. Atrial flutter. 7. Chronic hypotension, now severely hypotensive. still requires further prbc may need scope next 24-48 hours fall precautions add Protonix Watch io HD per renal Subjective Constitutional: Reports: no symptoms HEENT: Repors: no symptoms Respiratory: Reports: no symptoms Cardiovascular: Reports: no symptoms Gastrointestinal/Abdominal: Reports: no symptoms Genitourinary: Reports: no symptoms Neurologic: Reports: no symptoms Allergies: Coded Allergies: IBUPROFEN (Verified Allergy, Unknown, 11/14/11) PENICILLIN G (Verified Allergy, Unknown, 11/14/11) Subjective feeling better today no cp nv or bleeding breathing is much improved on o2 tolerating po no further syncope noted, but still with some dizziness, better than yesterday INR 2.5 HGB 7.8 this afternoon. Objective Last 24 Hour Vital Signs Date Time Temp Pulse Resp B/P Pulse Ox O2 Delivery O2 Flow Rate FiO2 12/03/16 16:00 97.3 88 20 89/51 100 Nasal Cannula 2.0 12/03/16 12:00 53 12/03/16 11:21 97.3 95 20 82/46 99 Nasal Cannula 3.0 12/03/16 08:00 84 12/03/16 07:54 97.2 94 20 91/46 99 Nasal Cannula 3.0 12/03/16 07:42 97.2 12/03/16 04:00 97.7 69 18 89/49 98 Room Air 12/03/16 04:00 58 12/03/16 00:00 97.9 68 20 77/45 97 Nasal Cannula 2.0 12/03/16 00:00 68 12/02/16 20:10 Nasal Cannula 2.0 12/02/16 20:00 76 12/02/16 20:00 97.5 66 18 76/36 Nasal Cannula 2.0 97 Intake and Output 12/02/16 12/03/16 19:00 07:00 Intake Total 470 ml 40 ml Output Total 175 ml Balance 470 ml -135 ml Intake Oral 470 ml IV Total 40 ml Output Hemodialysis UF 175 ml General Appearance: WD/WN HEENT: atraumatic, anicteric Respiratory/Chest: lungs clear, normal breath sounds Cardiovascular: normal rate, regular rhythm Extremities: no cyanosis Skin: no rash, no lesions Neurologic/Psychiatric: oriented x 3, responsive Lymphatic: no neck adenopathy, no groin adenopathy Musculoskeletal: normal muscle bulk, no effusion Microbiology Date/Time Source Procedure Growth Status 12/01/16 11:15 Nasal Nares MRSA Culture - Final NO METHICILLIN RESISTANT STAPH AUREUS... Complete 12/01/16 11:15 Rectum VRE Culture - Final NO VANCOMYCIN RESISTANT ENTEROCOCCUS ... Complete Laboratory Tests 12/03/16 04:35: White Blood Count 5.4, Red Blood Count 2.25L, Hemoglobin 6.8*L, Hematocrit 20.9L , Mean Corpuscular Volume 93, Mean Corpuscular Hemoglobin 30.1, Mean Corpuscular Hemoglobin Concent 32.4, Red Cell Distribution Width 17.4H, Platelet Count 112L, Mean Platelet Volume 7.0, Neutrophils (%) (Auto) , Lymphocytes (%) (Auto) , Monocytes (%) (Auto) , Eosinophils (%) (Auto) , Basophils (%) (Auto) , Differential Total Cells Counted 100, Neutrophils % ( Manual) 76H, Lymphocytes % (Manual) 14L, Monocytes % (Manual) 7, Eosinophils % ( Manual) 3, Basophils % (Manual) 0, Band Neutrophils 0, Platelet Estimate DecreasedL, Platelet Morphology Normal, Hypochromasia 1+, Anisocytosis 1+, Prothrombin Time 25.9H, Prothromb Time International Ratio 2.5H 12/03/16 14:15: White Blood Count 6.2, Red Blood Count 2.61L, Hemoglobin 7.8L, Hematocrit 24.3L , Mean Corpuscular Volume 93, Mean Corpuscular Hemoglobin 29.8, Mean Corpuscular Hemoglobin Concent 32.0, Red Cell Distribution Width 16.6H, Platelet Count 116L, Mean Platelet Volume 6.0L, Neutrophils (%) (Auto) , Lymphocytes (%) (Auto) , Monocytes (%) (Auto) , Eosinophils (%) (Auto) , Basophils (%) (Auto) , Differential Total Cells Counted 100, Neutrophils % ( Manual) 81H, Lymphocytes % (Manual) 14L, Monocytes % (Manual) 3, Eosinophils % ( Manual) 2, Basophils % (Manual) 0, Band Neutrophils 0, Platelet Estimate DecreasedL, Platelet Morphology Normal, Hypochromasia 1+, Anisocytosis 1+ 12/03/16 14:20: Prothrombin Time 23.6H, Prothromb Time International Ratio 2.3H Current Medications Medications (Trade) Dose Ordered Sig/Clotilde Route PRN Reason Start Time Stop Time Status Last Admin Dose Admin Acetaminophen/ Hydrocodone Bitart ([place] 5/325) 1 tab Q6H PRN ORAL For Pain 12/01/16 13:15 12/08/16 13:14 12/03/16 17:12 Amiodarone HCl (Cordarone) 200 mg EVERY 12 HOURS ORAL 12/01/16 21:00 12/31/16 20:59 12/03/16 10:27 Atorvastatin Calcium (Lipitor) 80 mg BEDTIME ORAL 12/01/16 21:00 12/31/16 20:59 12/03/16 02:15 Calcium Acetate (Phoslo) 667 mg BEDTIME ORAL 12/01/16 21:00 12/31/16 20:59 12/03/16 02:15 Cinacalcet (Sensipar) 60 mg DAILY ORAL 12/02/16 16:00 01/01/17 15:59 12/03/16 10:27 Meclizine HCl (Antivert) 25 mg THREE TIMES A DAY ORAL 12/01/16 15:00 12/31/16 14:59 12/03/16 17:11 Midodrine (Pro-Amatine) 10 mg THREE TIMES A DAY ORAL 12/01/16 18:00 12/31/16 17:59 12/03/16 17:11 Pantoprazole (Protonix) 40 mg DAILY IVP 12/02/16 16:00 01/01/17 15:59 12/03/16 10:27 Polyethylene Glycol (Miralax) 17 gm DAILYPRN PRN ORAL Constipation 12/01/16 18:45 12/31/16 18:44 12/02/16 09:38 Sevelamer Carbonate (Renvela) 800 mg THREE TIMES A DAY ORAL 12/01/16 18:00 12/31/16 17:59 12/03/16 17:12 GUILLAUME FLANAGAN DO Dec 03, 2016 18:22
[2016-12-03 20:00] VITALS: BP 97/49
[2016-12-04 00:11] VITALS: BP 99/57
[2016-12-04 04:15] VITALS: BP 93/55
[2016-12-04 07:39] LABS: BASOPHILS % (AUTO) 0.8 % (0.0-2.0); EOSINOPHILS % (AUTO) 2.7 % (0.0-3.0); LYMPHOCYTES % (AUTO) 11.5 % (20.0-45.0); MEAN CORPUSCULAR HEMOGLOBIN 30.4 PG (27.0-31.0); MEAN CORPUSCULAR HGB CONC 32.4 G/DL (32.0-36.0); MEAN CORPUSCULAR VOLUME 94 FL (80-99); MONOCYTES % (AUTO) 10.1 % (1.0-10.0); NEUTROPHILS % (AUTO) 74.9 % (45.0-75.0); PLATELET COUNT 113 K/UL (150-450); RED BLOOD COUNT 2.63 M/UL (4.70-6.10); WHITE BLOOD COUNT 7.1 K/UL (4.8-10.8)
[2016-12-04 07:52] LABS: ANION GAP 14 (5-15); CALCIUM 8.4 mg/dL (8.6-10.2); CARBON DIOXIDE 27 mEQ/L (20-30); CHLORIDE 94 mEQ/L (98-107); CREATININE 10.1 mg/dL (0.7-1.2); HEMOLYSIS 6; POTASSIUM 4.6 mEQ/L (3.4-4.9); SODIUM 135 mEQ/L (135-145)
[2016-12-04 07:58] VITALS: BP 98/52
[2016-12-04 08:06] LABS: INR 1.7 (0.9-1.1); PROTHROMBIN TIME 17.7 SEC (9.30-11.50)
[2016-12-04] MEDS: Miralax 17gm pkt ORAL PRN (09:35)
[2016-12-04] MEDS: Norco 5mg/325mg tab ORAL PRN (09:35)
[2016-12-04] MEDS: Sensipar 30mg Tab ORAL SCH (09:36)
[2016-12-04] MEDS: Renvela 800mg Pkt ORAL SCH ×3 (09:36→18:00)
[2016-12-04] MEDS: Midodrine 10mg tab ORAL SCH ×3 (09:36→18:48)
[2016-12-04] MEDS: Meclizine 25mg tab ORAL SCH ×3 (09:36→18:48)
[2016-12-04] MEDS: Amiodarone 200mg tab ORAL SCH ×2 (09:37→20:52)
[2016-12-04] MEDS: Pantoprazole Inj IVP SCH (09:38)
[2016-12-04 11:32] VITALS: BP 111/69
--- NOTE | 2016-12-04 12:39 | Nephrology Progress Note ---
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 (4) Anemia in chronic kidney disease (5) Atrial fibrillation Plan he feels better, hd 12/05, [id number] epogen Subjective Constitutional: Reports: weakness HEENT: Reports: no symptoms Genitourinary: Reports: no symptoms Neurologic/Psychiatric: Reports: no symptoms Objective Objective Last 24 Hour Vital Signs Date Time Temp Pulse Resp B/P Pulse Ox O2 Delivery O2 Flow Rate FiO2 12/04/16 11:32 97.5 68 20 111/69 100 Nasal Cannula 3.0 12/04/16 08:00 78 12/04/16 07:58 97.0 103 20 98/52 93 Nasal Cannula 3.0 12/04/16 04:15 98.3 69 21 93/55 94 Room Air 12/04/16 04:00 80 12/04/16 00:11 97.9 65 20 99/57 99 Room Air 12/04/16 00:00 76 12/03/16 20:00 98.1 66 20 97/49 95 Nasal Cannula 2.0 12/03/16 20:00 66 12/03/16 18:11 97.3 12/03/16 16:00 68 12/03/16 16:00 97.3 88 20 89/51 100 Nasal Cannula 2.0 Intake and Output 12/03/16 12/04/16 19:00 07:00 Intake Total 570 ml 100 ml Balance 570 ml 100 ml Intake Oral 490 ml 100 ml IV Total 80 ml # Bowel Movements 1 Laboratory Tests 12/03/16 14:15: White Blood Count 6.2, Red Blood Count 2.61L, Hemoglobin 7.8L, Hematocrit 24.3L , Mean Corpuscular Volume 93, Mean Corpuscular Hemoglobin 29.8, Mean Corpuscular Hemoglobin Concent 32.0, Red Cell Distribution Width 16.6H, Platelet Count 116L, Mean Platelet Volume 6.0L, Neutrophils (%) (Auto) , Lymphocytes (%) (Auto) , Monocytes (%) (Auto) , Eosinophils (%) (Auto) , Basophils (%) (Auto) , Differential Total Cells Counted 100, Neutrophils % ( Manual) 81H, Lymphocytes % (Manual) 14L, Monocytes % (Manual) 3, Eosinophils % ( Manual) 2, Basophils % (Manual) 0, Band Neutrophils 0, Platelet Estimate DecreasedL, Platelet Morphology Normal, Hypochromasia 1+, Anisocytosis 1+ 12/03/16 14:20: Prothrombin Time 23.6H, Prothromb Time International Ratio 2.3H 12/04/16 06:15: White Blood Count 7.1, Red Blood Count 2.63L, Hemoglobin 8.0L, Hematocrit 24.7L , Mean Corpuscular Volume 94, Mean Corpuscular Hemoglobin 30.4, Mean Corpuscular Hemoglobin Concent 32.4, Red Cell Distribution Width 17.0H, Platelet Count 113L, Mean Platelet Volume 7.0, Neutrophils (%) (Auto) 74.9, Lymphocytes (%) (Auto) 11.5L, Monocytes (%) (Auto) 10.1H, Eosinophils (%) (Auto ) 2.7, Basophils (%) (Auto) 0.8, Prothrombin Time 17.7H, Prothromb Time International Ratio 1.7H, Sodium Level 135, Potassium Level 4.6, Chloride Level 94L, Carbon Dioxide Level 27, Anion Gap 14, Blood Urea Nitrogen 94H, Creatinine 10.1H, Estimat Glomerular Filtration Rate , Glucose Level 96, Calcium Level 8.4L Height (Feet): 6 Height (Inches): 2.00 Weight (Pounds): 194 General Appearance: no apparent distress EENT: normal ENT inspection Neck: normal alignment Cardiovascular: regularly irregular Respiratory/Chest: lungs clear, normal breath sounds Abdomen: non tender, soft, no organomegaly Extremities: other - no edema 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
--- NOTE | 2016-12-04 14:47 | General Progress Note ---
Assessment/Plan Assessment/Plan Assessment - GI bleed - stablized - Coagulopathy - severe anemia - better, but not yet optimal - valvular heart disease - other list of medical problems as dictated Recommendations - follow CBC and INR - EGD in am - PPI Subjective Allergies: Coded Allergies: IBUPROFEN (Verified Allergy, Unknown, 11/14/11) PENICILLIN G (Verified Allergy, Unknown, 11/14/11) Subjective Feels OK (+) Brown BM no N/V INR lower Objective Last 24 Hour Vital Signs Date Time Temp Pulse Resp B/P Pulse Ox O2 Delivery O2 Flow Rate FiO2 12/04/16 12:00 64 12/04/16 11:32 97.5 68 20 111/69 100 Nasal Cannula 3.0 12/04/16 08:00 78 12/04/16 07:58 97.0 103 20 98/52 93 Nasal Cannula 3.0 12/04/16 04:15 98.3 69 21 93/55 94 Room Air 12/04/16 04:00 80 12/04/16 00:11 97.9 65 20 99/57 99 Room Air 12/04/16 00:00 76 12/03/16 20:00 98.1 66 20 97/49 95 Nasal Cannula 2.0 12/03/16 20:00 66 12/03/16 18:11 97.3 12/03/16 16:00 68 12/03/16 16:00 97.3 88 20 89/51 100 Nasal Cannula 2.0 Intake and Output 12/03/16 12/04/16 19:00 07:00 Intake Total 570 ml 100 ml Balance 570 ml 100 ml Intake Oral 490 ml 100 ml IV Total 80 ml # Bowel Movements 1 Laboratory Tests 12/04/16 06:15: White Blood Count 7.1, Red Blood Count 2.63L, Hemoglobin 8.0L, Hematocrit 24.7L , Mean Corpuscular Volume 94, Mean Corpuscular Hemoglobin 30.4, Mean Corpuscular Hemoglobin Concent 32.4, Red Cell Distribution Width 17.0H, Platelet Count 113L, Mean Platelet Volume 7.0, Neutrophils (%) (Auto) 74.9, Lymphocytes (%) (Auto) 11.5L, Monocytes (%) (Auto) 10.1H, Eosinophils (%) (Auto ) 2.7, Basophils (%) (Auto) 0.8, Prothrombin Time 17.7H, Prothromb Time International Ratio 1.7H, Sodium Level 135, Potassium Level 4.6, Chloride Level 94L, Carbon Dioxide Level 27, Anion Gap 14, Blood Urea Nitrogen 94H, Creatinine 10.1H, Estimat Glomerular Filtration Rate , Glucose Level 96, Calcium Level 8.4L Height (Feet): 6 Height (Inches): 2.00 Weight (Pounds): 194 Objective WDWN NCAT supple CTA RRR soft ND NT no edema nonfocal CAROL ANN CARLOS Dec 04, 2016 14:47
[2016-12-04 16:00] VITALS: BP 108/56
[2016-12-04 19:41] VITALS: BP 106/60
--- NOTE | 2016-12-04 19:56 | Pulmonology Progress Note ---
Assessment/Plan Assessment/Plan 1. Syncope. 2. Severe anemia, possible gastrointestinal bleed. 3. Severe coagulopathy with INR 5.1 due to therapeutic overdose of Coumadin. 4. End-stage renal disease, on dialysis 4 days weekly. 5. History of valvular heart disease. 6. Atrial flutter. 7. Chronic hypotension, now severely hypotensive. hgb stable, monitor closely for endoscopy in the am fall precautions add Protonix Watch io HD per renal Subjective Constitutional: Reports: no symptoms HEENT: Repors: no symptoms Respiratory: Reports: no symptoms Cardiovascular: Reports: no symptoms Gastrointestinal/Abdominal: Reports: no symptoms Genitourinary: Reports: no symptoms Musculoskeletal: Reports: pain - right shoulder Allergies: Coded Allergies: IBUPROFEN (Verified Allergy, Unknown, 11/14/11) PENICILLIN G (Verified Allergy, Unknown, 11/14/11) Subjective continues to be feeling better no cp nv or bleeding breathing is much improved on o2 tolerating po no further syncope noted, less dizziness today for HD in am Objective Last 24 Hour Vital Signs Date Time Temp Pulse Resp B/P Pulse Ox O2 Delivery O2 Flow Rate FiO2 12/04/16 19:41 97.7 67 18 106/60 94 Nasal Cannula 3.0 12/04/16 19:40 67 12/04/16 16:00 97.9 50 20 108/56 98 Nasal Cannula 2.0 12/04/16 12:00 64 12/04/16 11:32 97.5 68 20 111/69 100 Nasal Cannula 3.0 12/04/16 08:00 78 12/04/16 07:58 97.0 103 20 98/52 93 Nasal Cannula 3.0 12/04/16 04:15 98.3 69 21 93/55 94 Room Air 12/04/16 04:00 80 12/04/16 00:11 97.9 65 20 99/57 99 Room Air 12/04/16 00:00 76 12/03/16 20:00 98.1 66 20 97/49 95 Nasal Cannula 2.0 12/03/16 20:00 66 Intake and Output 12/03/16 12/04/16 19:00 07:00 Intake Total 570 ml 100 ml Balance 570 ml 100 ml Intake Oral 490 ml 100 ml IV Total 80 ml # Bowel Movements 1 General Appearance: WD/WN HEENT: atraumatic, anicteric Respiratory/Chest: lungs clear, normal breath sounds Cardiovascular: normal rate, regular rhythm Abdomen: soft, non tender, no organomegaly Extremities: no cyanosis Skin: no rash Neurologic/Psychiatric: alert, oriented x 3 Lymphatic: no neck adenopathy, no groin adenopathy Musculoskeletal: normal muscle bulk, no effusion Laboratory Tests 12/04/16 06:15: White Blood Count 7.1, Red Blood Count 2.63L, Hemoglobin 8.0L, Hematocrit 24.7L , Mean Corpuscular Volume 94, Mean Corpuscular Hemoglobin 30.4, Mean Corpuscular Hemoglobin Concent 32.4, Red Cell Distribution Width 17.0H, Platelet Count 113L, Mean Platelet Volume 7.0, Neutrophils (%) (Auto) 74.9, Lymphocytes (%) (Auto) 11.5L, Monocytes (%) (Auto) 10.1H, Eosinophils (%) (Auto ) 2.7, Basophils (%) (Auto) 0.8, Prothrombin Time 17.7H, Prothromb Time International Ratio 1.7H, Sodium Level 135, Potassium Level 4.6, Chloride Level 94L, Carbon Dioxide Level 27, Anion Gap 14, Blood Urea Nitrogen 94H, Creatinine 10.1H, Estimat Glomerular Filtration Rate , Glucose Level 96, Calcium Level 8.4L Current Medications Medications (Trade) Dose Ordered Sig/Clotilde Route PRN Reason Start Time Stop Time Status Last Admin Dose Admin Acetaminophen/ Hydrocodone Bitart (Laurel 5/325) 1 tab Q6H PRN ORAL For Pain 12/01/16 13:15 12/08/16 13:14 12/04/16 09:35 Amiodarone HCl (Cordarone) 200 mg EVERY 12 HOURS ORAL 12/01/16 21:00 12/31/16 20:59 12/04/16 09:37 Atorvastatin Calcium (Lipitor) 80 mg BEDTIME ORAL 12/01/16 21:00 12/31/16 20:59 12/03/16 21:06 Calcium Acetate (Phoslo) 667 mg BEDTIME ORAL 12/01/16 21:00 12/31/16 20:59 12/03/16 21:06 Cinacalcet (Sensipar) 60 mg DAILY ORAL 12/02/16 16:00 01/01/17 15:59 12/04/16 09:36 Epoetin Randolph (Procrit (for ESRD on dialysis)) 7,000 units MON-MON-MON SUBQ 12/05/16 21:00 01/04/17 20:59 Meclizine HCl (Antivert) 25 mg THREE TIMES A DAY ORAL 12/01/16 15:00 12/31/16 14:59 12/04/16 18:48 Midodrine (Pro-Amatine) 10 mg THREE TIMES A DAY ORAL 12/01/16 18:00 12/31/16 17:59 12/04/16 18:48 Pantoprazole 40 mg 40 mg DAILY IVP 12/02/16 16:00 01/01/17 15:59 12/04/16 09:38 Polyethylene Glycol (Miralax) 17 gm DAILYPRN PRN ORAL Constipation 12/01/16 18:45 12/31/16 18:44 12/04/16 09:35 Sevelamer Carbonate (Renvela) 800 mg THREE TIMES A DAY ORAL 12/01/16 18:00 12/31/16 17:59 12/03/16 17:12 Sodium Chloride (Sodium Chloride 1000ml bag) 1,000 ml @ 500 mls/hr Q2H PRN IVLG sbp<90 during hd 12/05/16 12:35 01/04/17 12:34 GUILLAUME FLANAGAN DO Dec 04, 2016 19:56
[2016-12-04] MEDS: Calcium Acetate 667mg Tab ORAL SCH (20:51)
[2016-12-04] MEDS: Atorvastatin 80mg tab ORAL SCH (20:52)
[2016-12-05] VITALS (10 sets, daily range): BP systolic 98–118; BP diastolic 58–76
--- NOTE | 2016-12-05 08:48 | Cardiology Report ---
APPROVED REPORT EKG Measurement Heart [id number] Atrial flutter with variable AV block Rightward axis Nonspecific intraventricular conduction delay Nonspecific T wave abnormality Prolonged QT Abnormal ECG
--- NOTE | 2016-12-05 08:58 | Consultation ---
DATE OF CONSULTATION: 12/02/2016 GASTROENTEROLOGY CONSULTATION CONSULTING PHYSICIAN: Ileana Chapman M.D. CHIEF COMPLAINT: I was asked to see this patient by Dr. Fidel Mendoza for evaluation of anemia and gastrointestinal bleeding. HISTORY OF PRESENT ILLNESS: The patient is a pleasant 71-year-old man who is on emt intermediate dialysis, who came to the hospital due to dizziness and syncope. He fainted when he was trying to get out of bed, but felt that he lost consciousness . He was brought to the emergency room and was found to have a INR of 5.1. He is on . The patient had an endoscopy and he is not aware of the details. He does have anemia of chronic disease of anemia due to his dialysis. He denies any abdominal pain, but black stools. He is both on aspirin and Coumadin at home. He cannot recall having colonoscopy. PAST MEDICAL HISTORY: History of chronic renal failure, on dialysis; history of chronic diastolic heart failure, history of respiratory failure, pleural effusions, pulmonary hypertension, , history of polycystic kidney disease, , chronic anemia, , history of paroxysmal atrial fibrillation, history of mitral valve endocarditis, status post valve replacement. 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 ALLERGIES: Ibuprofen and penicillin. MEDICATIONS: See chart list for details. SOCIAL HISTORY: The patient is a former smoker. . He lives independently. FAMILY HISTORY: Noncontributory. REVIEW OF SYSTEMS: Otherwise negative. PHYSICAL EXAMINATION: GENERAL: This is a pleasant man, seen in his room. HEENT: Normocephalic and atraumatic. Sclerae are anicteric. Oropharynx clear. NECK: Supple. CHEST: Clear to auscultation. CARDIOVASCULAR: Regular rate. ABDOMEN: Soft. Good bowel sounds. EXTREMITIES: Revealed no edema. LABORATORY DATA: Laboratory data were noted. ASSESSMENT: This patient presents with profound anemia and the possibility of black stools. He did have some syncope and therefore his anemia is significantly. renal failure. as well as . I will give him some vitamin K . Once his INR is corrected, undergo endoscopy to evaluate the upper gastrointestinal tract. The patient will also be advised to have a colostomy at a later date. RECOMMENDATIONS: 1. Hold Coumadin. 2. Fresh frozen plasma. 3. Vitamin K. 4. Serial CBC. 5. Endoscopy when stabilized. Thank you for asking me to participate in the care of this patient. Ileana Chapman M.D. DR: LOUISE JOB#: [id number] CC:
[2016-12-05] MEDS: Midodrine 10mg tab ORAL SCH ×3 (09:00→17:41)
[2016-12-05] MEDS: Amiodarone 200mg tab ORAL SCH ×2 (09:00→21:00)
[2016-12-05] MEDS: Renvela 800mg Pkt ORAL SCH ×3 (09:00→17:41)
[2016-12-05] MEDS: Sensipar 30mg Tab ORAL SCH (09:00)
[2016-12-05] MEDS: Meclizine 25mg tab ORAL SCH ×3 (09:00→17:41)
[2016-12-05] MEDS: Pantoprazole Inj IVP SCH (09:12)
[2016-12-05 10:28] LABS: BASOPHILS % (AUTO) 0.8 % (0.0-2.0); EOSINOPHILS % (AUTO) 1.9 % (0.0-3.0); MEAN CORPUSCULAR HEMOGLOBIN 30.2 PG (27.0-31.0); MEAN CORPUSCULAR HGB CONC 32.3 G/DL (32.0-36.0); MEAN CORPUSCULAR VOLUME 94 FL (80-99); MEAN PLATELET VOLUME 5.8 FL (6.5-10.1); MONOCYTES % (AUTO) 9.1 % (1.0-10.0); NEUTROPHILS % (AUTO) 81.3 % (45.0-75.0); PLATELET COUNT 114 K/UL (150-450); RED BLOOD COUNT 2.65 M/UL (4.70-6.10); RED CELL DISTRIBUTION WIDTH 16.7 % (11.6-14.8); WHITE BLOOD COUNT 6.6 K/UL (4.8-10.8)
[2016-12-05 10:45] LABS: ANION GAP 18 (5-15); CALCIUM 7.8 mg/dL (8.6-10.2); CARBON DIOXIDE 23 mEQ/L (20-30); CHLORIDE 92 mEQ/L (98-107); HEMOLYSIS 2; POTASSIUM 5.2 mEQ/L (3.4-4.9); SODIUM 133 mEQ/L (135-145)
[2016-12-05] MEDS ORDERED: Propofol 10mg/ml 20ml IV ONE (11:20)
[2016-12-05] MEDS ORDERED: LR 1000ml ONE (11:20)
[2016-12-05] MEDS ORDERED: Lidocaine 1% MPF 10mg/ml 5ml ONE (11:20)
--- NOTE | 2016-12-05 11:24 | Pre-Procedure Note/Attestation ---
Pre-Procedure Note/Attestation Complete Prior to Procedure Planned Procedure: not applicable Procedure Narrative: egd Indications for Procedure Pre-Operative Diagnosis: gib Attestation I attest that I discussed the nature of the procedure; its benefits; risks and complications; and alternatives (and the risks and benefits of such alternatives ), prior to the procedure, with the patient (or the patient's legal applications sales representative). I attest that, if there was a reasonable possibility of needing a blood transfusion, the patient (or the patient's legal applications sales representative) was given the [facility] Health Services standardized written summary, pursuant to the Jose Cindy Blood Safety Act ([place] Health and Safety Code # 1645, as amended). I attest that I re-evaluated the patient just prior to the surgery and that there has been no change in the patient's H&P, except as documented below: ANITHA MINOR Dec 05, 2016 11:24
[2016-12-05] MEDS ORDERED: NS 550ML IV ONE (11:35)
--- NOTE | 2016-12-05 11:46 | Endoscopy Procedure Note ---
Endoscopy Procedure Note Indication for Procedure: gib Procedures Performed: EGD Operative Findings/Diagnosis: gastritis Specimen: yes Pt Tolerated Procedure Well: Yes Estimated Blood Loss: none Anesthesiologist: iliana Anesthesia: MAC Implant(s) used?: No 50 yrs or older w/o bx or poly: Not Applicable 10yrs. F/U not recommended: Not Applicable ANITHA MINOR Dec 05, 2016 11:46
--- NOTE | 2016-12-05 12:05 | Immediate Post-Op Evaluation ---
Immediate Post-Op Evalulation Immediate Post-Op Evalulation Procedure: EGD Date of Evaluation: Dec 05, 2016 Time of Evaluation: 11:55 IV Fluids: 200 Blood Pressure Systolic: 115 Blood Pressure Diastolic: 57 Pulse Rate: 90 Respiratory Rate: 14 O2 Sat by Pulse Oximetry: 98 Temperature (Fahrenheit): 97.4 Nausea: No Vomiting: No Complications none Patient Status: awake, reacts, patent Hydration Status: adequate Drug: none MEGHAN CORDOBA CRNA Dec 05, 2016 12:05
--- NOTE | 2016-12-05 12:08 | Anethesia Preoperative Eval ---
Anesthesia Pre-op PMH/ROS General Date of Evaluation: Dec 05, 2016 Time of Evaluation: 11:25 Anesthesiologist: taras ASA Score: ASA 4 Mallampati Score Class I : Soft palate, uvula, fauces, pillars visible Class II: Soft palate, uvula, fauces visible Class III: Soft palate, base of uvula visible Class IV: Only hard plate visible Surgeon: bren Diagnosis: GI Bleed Surgical Procedure: egd Anesthesia History: none Family History: no anesthesia problems Allergies: Coded Allergies: IBUPROFEN (Verified Allergy, Unknown, 11/14/11) PENICILLIN G (Verified Allergy, Unknown, 11/14/11) Medications: see eMAR Past Medical History Cardiovascular: Reports: CAD, HTN, arrhythmia Gastrointestinal/Genitourinary: Reports: ESRD, GERD Neurologic/Psychiatric: Denies: CVA, TIA, dementia, depression/anxiety, other Endocrine: Denies: DM, hypothyroidism, other, steroids HEENT: Denies: [place] (L), [place] (R), cataract (L), cataract (R), glaucoma, other Hematology/Immune: Reports: anemia, bleeding disorder Musculoskeletal/Integumentary: Denies: DDD, DJD, OA, RA, edema, other PSxH Narrative: valve replacement Anesthesia Pre-op Phys. Exam Physician Exam Last Vital Signs Date Time Temp Pulse Resp B/P Pulse Ox O2 Delivery O2 Flow Rate FiO2 12/05/16 11:32 97.9 91 20 117/62 95 Nasal Cannula 3.0 12/02/16 20:00 97 Constitutional: NAD Neurologic: CN 2-12 intact Cardiovascular: other - aflutter Airway Exam Mallampati Classification 3 Mallampati Score: Class III Neck: thick ROM: full Dentures: no lower, no upper Anesthesia Pre-op A/P Labs Hematology Test 12/05/16 10:19 White Blood Count 6.6 K/UL (4.8-10.8) Red Blood Count 2.65 M/UL (4.70-6.10) L Hemoglobin 8.0 G/DL (14.2-18.0) L Hematocrit 24.8 % (42.0-52.0) L Mean Corpuscular Volume 94 FL (80-99) Mean Corpuscular Hemoglobin 30.2 PG (27.0-31.0) Mean Corpuscular Hemoglobin Concent 32.3 G/DL (32.0-36.0) Red Cell Distribution Width 16.7 % (11.6-14.8) H Platelet Count 114 K/UL (150-450) L Mean Platelet Volume 5.8 FL (6.5-10.1) L Neutrophils (%) (Auto) 81.3 % (45.0-75.0) H Lymphocytes (%) (Auto) 7.0 % (20.0-45.0) L Monocytes (%) (Auto) 9.1 % (1.0-10.0) Eosinophils (%) (Auto) 1.9 % (0.0-3.0) Basophils (%) (Auto) 0.8 % (0.0-2.0) Chemistry Test 12/05/16 10:19 Sodium Level 133 mEQ/L (135-145) L Potassium Level 5.2 mEQ/L (3.4-4.9) H Chloride Level 92 mEQ/L (98-107) L Carbon Dioxide Level 23 mEQ/L (20-30) Anion Gap 18 (5-15) H Blood Urea Nitrogen 100 mg/dL (7-23) H Creatinine 12.0 mg/dL (0.7-1.2) H Estimat Glomerular Filtration Rate mL/min (>60) Glucose Level 79 mg/dL (74-106) Calcium Level 7.8 mg/dL (8.6-10.2) L Studies Pre-op Studies: EKG - afluter Risk Assessment & Plan Plan: mac Status Change Before Surgery: No Pre-Antibiotics Drug: none MEGHAN CORDOBA CRNA Dec 05, 2016 12:08
--- NOTE | 2016-12-05 12:10 | 48 Hour Post Anesthesia Eval ---
Post Anesthesia Evaluation Procedure: EGD Date of Evaluation: Dec 05, 2016 Time of Evaluation: 12:08 Blood Pressure Systolic: 115 0: 65 Pulse Rate: 90 Respiratory Rate: 14 O2 Sat by Pulse Oximetry: 99 Airway: patent Nausea: No Vomiting: No Hydration Status: adequate Cardiopulmonary Status: normal Mental Status/LOC: patient returned to baseline Post-Anesthesia Complications: none Follow-up care needed: N/A MEGHAN CORDOBA CRNA Dec 05, 2016 12:10
--- NOTE | 2016-12-05 13:03 | General Progress Note ---
Assessment/Plan Assessment/Plan 1. Syncope. 2. Severe anemia, possible gastrointestinal bleed. 3. Severe coagulopathy with INR 5.1 due to therapeutic overdose of Coumadin. 4. End-stage renal disease, on dialysis 4 days weekly. 5. History of valvular heart disease. 6. Atrial flutter. 7. Chronic hypotension, now severely hypotensive. Hgb stable continue Protonix transfuse prn HD EGD Subjective Constitutional: Reports: no symptoms Allergies: Coded Allergies: IBUPROFEN (Verified Allergy, Unknown, 11/14/11) PENICILLIN G (Verified Allergy, Unknown, 11/14/11) Objective Last 24 Hour Vital Signs Date Time Temp Pulse Resp B/P Pulse Ox O2 Delivery O2 Flow Rate FiO2 12/05/16 12:20 97.8 92 114/65 Nasal Cannula 2.0 12/05/16 12:15 83 20 112/67 98 Nasal Cannula 2.0 12/05/16 12:10 90 14 99 12/05/16 12:05 90 14 98 12/05/16 12:00 93 20 107/62 98 Nasal Cannula 2.0 12/05/16 11:55 91 20 107/64 98 Nasal Cannula 2.0 12/05/16 11:50 97.8 90 20 115/67 98 Nasal Cannula 2.0 12/05/16 11:32 97.9 91 20 117/62 95 Nasal Cannula 3.0 12/05/16 08:00 88 12/05/16 07:59 97.7 93 20 104/58 96 Nasal Cannula 3.0 12/05/16 04:04 98.7 94 21 118/65 98 Room Air 12/05/16 04:00 94 12/05/16 00:12 98.8 74 20 98/76 95 Room Air 12/04/16 19:41 97.7 67 18 106/60 94 Nasal Cannula 3.0 12/04/16 19:40 67 12/04/16 16:00 72 12/04/16 16:00 97.9 50 20 108/56 98 Nasal Cannula 2.0 Intake and Output 12/04/16 12/05/16 19:00 07:00 Intake Total 450 ml 200 ml Balance 450 ml 200 ml Intake Oral 450 ml 200 ml # Bowel Movements 1 Laboratory Tests 12/05/16 10:19: White Blood Count 6.6, Red Blood Count 2.65L, Hemoglobin 8.0L, Hematocrit 24.8L , Mean Corpuscular Volume 94, Mean Corpuscular Hemoglobin 30.2, Mean Corpuscular Hemoglobin Concent 32.3, Red Cell Distribution Width 16.7H, Platelet Count 114L, Mean Platelet Volume 5.8L, Neutrophils (%) (Auto) 81.3H, Lymphocytes (%) (Auto) 7.0L, Monocytes (%) (Auto) 9.1, Eosinophils (%) (Auto) 1.9, Basophils (%) (Auto) 0.8, Sodium Level 133L, Potassium Level 5.2H, Chloride Level 92L, Carbon Dioxide Level 23, Anion Gap 18H, Blood Urea Nitrogen 100H, Creatinine 12.0H, Estimat Glomerular Filtration Rate , Glucose Level 79, Calcium Level 7.8L Height (Feet): 6 Height (Inches): 1.00 Weight (Pounds): 194 General Appearance: no apparent distress Neck: supple Cardiovascular: normal rate Respiratory/Chest: lungs clear Abdomen: non tender, soft DAYANA JOE Dec 05, 2016 13:03
--- NOTE | 2016-12-05 17:04 | Nephrology Progress Note ---
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 (4) Anemia in chronic kidney disease (5) Atrial fibrillation Plan he feels better, hd 12/05,stable [id number] epogen, Subjective Constitutional: Reports: weakness Neurologic/Psychiatric: Reports: no symptoms Objective Objective Last 24 Hour Vital Signs Date Time Temp Pulse Resp B/P Pulse Ox O2 Delivery O2 Flow Rate FiO2 12/05/16 16:00 87 12/05/16 16:00 93.7 93 18 106/73 Nasal Cannula 2.0 99 12/05/16 12:20 97.8 92 114/65 Nasal Cannula 2.0 12/05/16 12:15 83 20 112/67 98 Nasal Cannula 2.0 12/05/16 12:10 90 14 99 12/05/16 12:05 90 14 98 12/05/16 12:00 93 20 107/62 98 Nasal Cannula 2.0 12/05/16 11:55 91 20 107/64 98 Nasal Cannula 2.0 12/05/16 11:50 97.8 90 20 115/67 98 Nasal Cannula 2.0 12/05/16 11:32 97.9 91 20 117/62 95 Nasal Cannula 3.0 12/05/16 08:00 88 12/05/16 07:59 97.7 93 20 104/58 96 Nasal Cannula 3.0 12/05/16 04:04 98.7 94 21 118/65 98 Room Air 12/05/16 04:00 94 12/05/16 00:12 98.8 74 20 98/76 95 Room Air 12/04/16 19:41 97.7 67 18 106/60 94 Nasal Cannula 3.0 12/04/16 19:40 67 Intake and Output 12/04/16 12/05/16 19:00 07:00 Intake Total 450 ml 200 ml Balance 450 ml 200 ml Intake Oral 450 ml 200 ml # Bowel Movements 1 Laboratory Tests 12/05/16 10:19: White Blood Count 6.6, Red Blood Count 2.65L, Hemoglobin 8.0L, Hematocrit 24.8L , Mean Corpuscular Volume 94, Mean Corpuscular Hemoglobin 30.2, Mean Corpuscular Hemoglobin Concent 32.3, Red Cell Distribution Width 16.7H, Platelet Count 114L, Mean Platelet Volume 5.8L, Neutrophils (%) (Auto) 81.3H, Lymphocytes (%) (Auto) 7.0L, Monocytes (%) (Auto) 9.1, Eosinophils (%) (Auto) 1.9, Basophils (%) (Auto) 0.8, Sodium Level 133L, Potassium Level 5.2H, Chloride Level 92L, Carbon Dioxide Level 23, Anion Gap 18H, Blood Urea Nitrogen 100H, Creatinine 12.0H, Estimat Glomerular Filtration Rate , Glucose Level 79, Calcium Level 7.8L Height (Feet): 6 Height (Inches): 1.00 Weight (Pounds): 194 General Appearance: WD/WN, no apparent distress EENT: normal ENT inspection Neck: non-tender, normal alignment Cardiovascular: normal rate, regularly irregular Respiratory/Chest: lungs clear, normal breath sounds Abdomen: soft, no organomegaly Extremities: other - no edema Neurologic: recreational therapy aide II-XII grossly normal AMBER CERVANTES Dec 05, 2016 17:04
[2016-12-05] MEDS: Norco 5mg/325mg tab ORAL PRN (18:18)
--- NOTE | 2016-12-05 18:58 | Procedure Note ---
DATE OF PROCEDURE: 12/05/2016 SURGEON: Shady Reynolds M.D. PROCEDURE: Upper endoscopy with biopsy. ANESTHESIA: Per MEDICAL GENETICIST, She [place]. INSTRUMENT: Olympus adult flexible upper scope. INDICATION: Upper gastrointestinal bleeding. REASON FOR PROCEDURE: The procedure, risks, benefits, and possible consequences, including hemorrhage, aspiration, perforation and infection, and alternative treatments, were explained to the patient/legal guardian by Dr. Shady Reynolds and the patient/legal guardian understood and accepted these risks. DESCRIPTION OF PROCEDURE: After informed consent was obtained and the patient was adequately sedated, Olympus upper endoscope was advanced from mouth into the second portion of the duodenum and retroflexion was performed of the stomach. The patient had evidence of one or two antral erosions. Otherwise, normal upper endoscopic examination. Random biopsy from antrum was obtained to rule out H. pylori infection. SUMMARY OF FINDINGS: Few antral erosions otherwise normal upper endoscopic examination. RECOMMENDATIONS: 1. Followup biopsies and treat accordingly. 2. The patient might benefit from colonoscopy if the gastrointestinal bleed is still a concern. Shady Reynolds M.D. DR: KENA JOB#: [id number] CC:
[2016-12-05] MEDS ORDERED: Epogen (for ESRD on dialysis) SUBQ SCH (21:00)
--- NOTE | 2016-12-05 21:53 | General Progress Note ---
Assessment/Plan Assessment/Plan Assessment - GI bleed - EGD negative - Coagulopathy - corrected - severe anemia - valvular heart disease - other list of medical problems as dictated Recommendations - follow CBC and INR - colonoscopy tomorrow afternoon - PPI Subjective Allergies: Coded Allergies: IBUPROFEN (Verified Allergy, Unknown, 11/14/11) PENICILLIN G (Verified Allergy, Unknown, 11/14/11) Subjective above noted d/w Dr. Pandya EGD negative OB (+) stool Objective Last 24 Hour Vital Signs Date Time Temp Pulse Resp B/P Pulse Ox O2 Delivery O2 Flow Rate FiO2 12/05/16 16:00 87 12/05/16 16:00 93.7 93 18 106/73 Nasal Cannula 2.0 99 12/05/16 12:20 97.8 92 114/65 Nasal Cannula 2.0 12/05/16 12:15 83 20 112/67 98 Nasal Cannula 2.0 12/05/16 12:10 90 14 99 12/05/16 12:05 90 14 98 12/05/16 12:00 93 20 107/62 98 Nasal Cannula 2.0 12/05/16 11:55 91 20 107/64 98 Nasal Cannula 2.0 12/05/16 11:50 97.8 90 20 115/67 98 Nasal Cannula 2.0 12/05/16 11:32 97.9 91 20 117/62 95 Nasal Cannula 3.0 12/05/16 08:00 88 12/05/16 07:59 97.7 93 20 104/58 96 Nasal Cannula 3.0 12/05/16 04:04 98.7 94 21 118/65 98 Room Air 12/05/16 04:00 94 12/05/16 00:12 98.8 74 20 98/76 95 Room Air Intake and Output 12/04/16 12/05/16 19:00 07:00 Intake Total 450 ml 200 ml Balance 450 ml 200 ml Intake Oral 450 ml 200 ml # Bowel Movements 1 Laboratory Tests 12/05/16 10:19: White Blood Count 6.6, Red Blood Count 2.65L, Hemoglobin 8.0L, Hematocrit 24.8L , Mean Corpuscular Volume 94, Mean Corpuscular Hemoglobin 30.2, Mean Corpuscular Hemoglobin Concent 32.3, Red Cell Distribution Width 16.7H, Platelet Count 114L, Mean Platelet Volume 5.8L, Neutrophils (%) (Auto) 81.3H, Lymphocytes (%) (Auto) 7.0L, Monocytes (%) (Auto) 9.1, Eosinophils (%) (Auto) 1.9, Basophils (%) (Auto) 0.8, Sodium Level 133L, Potassium Level 5.2H, Chloride Level 92L, Carbon Dioxide Level 23, Anion Gap 18H, Blood Urea Nitrogen 100H, Creatinine 12.0H, Estimat Glomerular Filtration Rate , Glucose Level 79, Calcium Level 7.8L Height (Feet): 6 Height (Inches): 1.00 Weight (Pounds): 194 CAROL ANN CARLOS Dec 05, 2016 21:53
[2016-12-05] MEDS ORDERED: Nulytely 4L ORAL ONE (22:15)
[2016-12-05] MEDS: Atorvastatin 80mg tab ORAL SCH (23:14)
[2016-12-05] MEDS: Calcium Acetate 667mg Tab ORAL SCH (23:14)
[2016-12-06 00:10] VITALS: BP 103/60
[2016-12-06 03:56] VITALS: BP 100/50
[2016-12-06 06:35] LABS: BASOPHILS % (AUTO) 0.8 % (0.0-2.0); EOSINOPHILS % (AUTO) 1.6 % (0.0-3.0); LYMPHOCYTES % (AUTO) 6.9 % (20.0-45.0); MEAN CORPUSCULAR HEMOGLOBIN 30.4 PG (27.0-31.0); MEAN CORPUSCULAR HGB CONC 32.6 G/DL (32.0-36.0); MEAN CORPUSCULAR VOLUME 93 FL (80-99); MEAN PLATELET VOLUME 6.9 FL (6.5-10.1); MONOCYTES % (AUTO) 11.6 % (1.0-10.0); PLATELET COUNT 118 K/UL (150-450); RED BLOOD COUNT 2.67 M/UL (4.70-6.10); RED CELL DISTRIBUTION WIDTH 16.1 % (11.6-14.8); WHITE BLOOD COUNT 5.7 K/UL (4.8-10.8)
[2016-12-06 08:14] VITALS: BP 98/58
[2016-12-06] MEDS ORDERED: Metoclopramide 10mg/2ml Inj IVP ONE (08:30)
[2016-12-06] MEDS: Midodrine 10mg tab ORAL SCH ×3 (08:54→17:42)
[2016-12-06] MEDS: Meclizine 25mg tab ORAL SCH ×3 (08:54→17:43)
[2016-12-06] MEDS: Pantoprazole Inj IVP SCH (08:54)
[2016-12-06] MEDS: Amiodarone 200mg tab ORAL SCH ×2 (08:54→21:46)
[2016-12-06] MEDS: Sensipar 30mg Tab ORAL SCH (08:54)
[2016-12-06] MEDS: Renvela 800mg Pkt ORAL SCH ×3 (08:55→17:44)
[2016-12-06 11:46] VITALS: BP 136/64
--- NOTE | 2016-12-06 13:43 | General Progress Note ---
Assessment/Plan Assessment/Plan 1. Syncope. 2. Severe anemia, possible gastrointestinal bleed. 3. Severe coagulopathy with INR 5.1 due to therapeutic overdose of Coumadin. 4. End-stage renal disease, on dialysis 4 days weekly. 5. History of valvular heart disease. 6. Atrial flutter. 7. Chronic hypotension, now severely hypotensive. Hgb stable continue Protonix EGD negcolonoscopy today HD DC plan Subjective Constitutional: Reports: no symptoms Allergies: Coded Allergies: IBUPROFEN (Verified Allergy, Unknown, 11/14/11) PENICILLIN G (Verified Allergy, Unknown, 11/14/11) Objective Last 24 Hour Vital Signs Date Time Temp Pulse Resp B/P Pulse Ox O2 Delivery O2 Flow Rate FiO2 12/06/16 11:46 97.0 98 20 136/64 96 Nasal Cannula 2.0 12/06/16 08:14 98.1 97 20 98/58 97 Nasal Cannula 2.0 12/06/16 08:00 95 12/06/16 04:00 78 12/06/16 03:56 98.8 68 21 100/50 96 Room Air 12/06/16 00:10 98.2 98 20 103/60 97 Nasal Cannula 2.0 12/06/16 00:00 87 12/05/16 23:00 Nasal Cannula 2.0 99 12/05/16 22:56 Nasal Cannula 12/05/16 20:00 73 12/05/16 19:59 Nasal Cannula 2.0 99 12/05/16 16:00 87 12/05/16 16:00 93.7 93 18 106/73 Nasal Cannula 2.0 99 Intake and Output 12/05/16 12/06/16 19:00 07:00 Intake Total 780 ml Output Total 2000 ml Balance 780 ml -2000 ml Intake Oral 480 ml IV Total 300 ml Output Hemodialysis UF 2000 ml # Bowel Movements 2 2 Laboratory Tests 12/06/16 05:40: White Blood Count 5.7, Red Blood Count 2.67L, Hemoglobin 8.1L, Hematocrit 24.9L , Mean Corpuscular Volume 93, Mean Corpuscular Hemoglobin 30.4, Mean Corpuscular Hemoglobin Concent 32.6, Red Cell Distribution Width 16.1H, Platelet Count 118L, Mean Platelet Volume 6.9, Neutrophils (%) (Auto) 79.0H, Lymphocytes (%) (Auto) 6.9L, Monocytes (%) (Auto) 11.6H, Eosinophils (%) (Auto) 1.6, Basophils (%) (Auto) 0.8 Height (Feet): 6 Height (Inches): 1.00 Weight (Pounds): 194 General Appearance: no apparent distress Cardiovascular: normal rate Respiratory/Chest: lungs clear DAYANA JOE Dec 06, 2016 13:43
[2016-12-06] MEDS: Norco 5mg/325mg tab ORAL PRN (17:44)
[2016-12-06 20:00] VITALS: BP 106/53
--- NOTE | 2016-12-06 21:13 | Nephrology Progress Note ---
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 (4) Anemia in chronic kidney disease (5) Atrial fibrillation Plan he feels better, hd 12/07,stable restart epogen, colonoscopy pending Subjective Constitutional: Reports: weakness HEENT: Reports: no symptoms Genitourinary: Reports: no symptoms Neurologic/Psychiatric: Reports: no symptoms Objective Objective Last 24 Hour Vital Signs Date Time Temp Pulse Resp B/P Pulse Ox O2 Delivery O2 Flow Rate FiO2 12/06/16 20:00 97.7 81 18 106/53 Nasal Cannula 2.0 96 12/06/16 12:00 Nasal Cannula 2.0 99 12/06/16 12:00 96 12/06/16 11:46 97.0 98 20 136/64 96 Nasal Cannula 2.0 12/06/16 08:14 98.1 97 20 98/58 97 Nasal Cannula 2.0 12/06/16 08:00 95 12/06/16 04:00 78 12/06/16 03:56 98.8 68 21 100/50 96 Room Air 12/06/16 00:10 98.2 98 20 103/60 97 Nasal Cannula 2.0 12/06/16 00:00 87 12/05/16 23:00 Nasal Cannula 2.0 99 12/05/16 22:56 Nasal Cannula Intake and Output 12/05/16 12/06/16 19:00 07:00 Intake Total 780 ml Output Total 2000 ml Balance 780 ml -2000 ml Intake Oral 480 ml IV Total 300 ml Output Hemodialysis UF 2000 ml # Bowel Movements 2 2 Laboratory Tests 12/06/16 05:40: White Blood Count 5.7, Red Blood Count 2.67L, Hemoglobin 8.1L, Hematocrit 24.9L , Mean Corpuscular Volume 93, Mean Corpuscular Hemoglobin 30.4, Mean Corpuscular Hemoglobin Concent 32.6, Red Cell Distribution Width 16.1H, Platelet Count 118L, Mean Platelet Volume 6.9, Neutrophils (%) (Auto) 79.0H, Lymphocytes (%) (Auto) 6.9L, Monocytes (%) (Auto) 11.6H, Eosinophils (%) (Auto) 1.6, Basophils (%) (Auto) 0.8 Height (Feet): 6 Height (Inches): 1.00 Weight (Pounds): 194 General Appearance: no apparent distress, alert EENT: normal ENT inspection Neck: normal alignment Cardiovascular: regularly irregular Respiratory/Chest: lungs clear Abdomen: non tender Extremities: other - no edema 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
[2016-12-06] MEDS: Atorvastatin 80mg tab ORAL SCH (21:46)
[2016-12-06] MEDS: Calcium Acetate 667mg Tab ORAL SCH (21:46)
--- NOTE | 2016-12-06 21:55 | General Progress Note ---
Assessment/Plan Assessment/Plan Assessment - GI bleed - EGD negative - Coagulopathy - corrected - severe anemia - valvular heart disease - other list of medical problems as dictated Recommendations - follow labs - colonoscopy tomorrow am - PPI Subjective Allergies: Coded Allergies: IBUPROFEN (Verified Allergy, Unknown, 11/14/11) PENICILLIN G (Verified Allergy, Unknown, 11/14/11) Subjective feels OK stools clear hospital unable to provide staffing for colonoscopy today postponed to tomorrow Objective Last 24 Hour Vital Signs Date Time Temp Pulse Resp B/P Pulse Ox O2 Delivery O2 Flow Rate FiO2 12/06/16 20:00 97.7 81 18 106/53 Nasal Cannula 2.0 96 12/06/16 12:00 Nasal Cannula 2.0 99 12/06/16 12:00 96 12/06/16 11:46 97.0 98 20 136/64 96 Nasal Cannula 2.0 12/06/16 08:14 98.1 97 20 98/58 97 Nasal Cannula 2.0 12/06/16 08:00 95 12/06/16 04:00 78 12/06/16 03:56 98.8 68 21 100/50 96 Room Air 12/06/16 00:10 98.2 98 20 103/60 97 Nasal Cannula 2.0 12/06/16 00:00 87 12/05/16 23:00 Nasal Cannula 2.0 99 12/05/16 22:56 Nasal Cannula Intake and Output 12/05/16 12/06/16 19:00 07:00 Intake Total 780 ml Output Total 2000 ml Balance 780 ml -2000 ml Intake Oral 480 ml IV Total 300 ml Output Hemodialysis UF 2000 ml # Bowel Movements 2 2 Laboratory Tests 12/06/16 05:40: White Blood Count 5.7, Red Blood Count 2.67L, Hemoglobin 8.1L, Hematocrit 24.9L , Mean Corpuscular Volume 93, Mean Corpuscular Hemoglobin 30.4, Mean Corpuscular Hemoglobin Concent 32.6, Red Cell Distribution Width 16.1H, Platelet Count 118L, Mean Platelet Volume 6.9, Neutrophils (%) (Auto) 79.0H, Lymphocytes (%) (Auto) 6.9L, Monocytes (%) (Auto) 11.6H, Eosinophils (%) (Auto) 1.6, Basophils (%) (Auto) 0.8 Height (Feet): 6 Height (Inches): 1.00 Weight (Pounds): 194 Objective WDWN NCAT supple CTA RRR Soft ND NT no edema non focal CAROL ANN CARLOS Dec 06, 2016 21:55
[2016-12-06] MEDS ORDERED: Sorbitol Solution UD 30ml ORAL ONE (22:00)
[2016-12-07] VITALS (11 sets, daily range): BP systolic 78–149; BP diastolic 40–75
[2016-12-07] MEDS ORDERED: Sorbitol Solution UD 30ml ORAL ONE (00:15)
[2016-12-07] MEDS: Midodrine 10mg tab ORAL SCH ×3 (05:28→17:38)
[2016-12-07 07:38] LABS: MEAN CORPUSCULAR HEMOGLOBIN 29.5 PG (27.0-31.0); MEAN CORPUSCULAR HGB CONC 31.5 G/DL (32.0-36.0); MEAN CORPUSCULAR VOLUME 94 FL (80-99); MEAN PLATELET VOLUME 6.4 FL (6.5-10.1); PLATELET COUNT 125 K/UL (150-450); RED BLOOD COUNT 2.57 M/UL (4.70-6.10); RED CELL DISTRIBUTION WIDTH 15.8 % (11.6-14.8); WHITE BLOOD COUNT 5.8 K/UL (4.8-10.8)
[2016-12-07 08:23] LABS: INR 1.2 (0.9-1.1); PROTHROMBIN TIME 11.8 SEC (9.30-11.50)
[2016-12-07] MEDS: Pantoprazole Inj IVP SCH (08:39)
[2016-12-07] MEDS: Sensipar 30mg Tab ORAL SCH (08:39)
[2016-12-07] MEDS: Meclizine 25mg tab ORAL SCH ×3 (08:40→17:38)
[2016-12-07] MEDS: Amiodarone 200mg tab ORAL SCH ×2 (08:40→20:57)
[2016-12-07] MEDS: Renvela 800mg Pkt ORAL SCH ×4 (08:40→18:00)
[2016-12-07 08:46] LABS: ANION GAP 19 (5-15); CARBON DIOXIDE 26 mEQ/L (20-30); CHLORIDE 92 mEQ/L (98-107); CREATININE 11.3 mg/dL (0.7-1.2); HEMOLYSIS 2; SODIUM 137 mEQ/L (135-145)
[2016-12-07] MEDS ORDERED: NS 550ML IV ONE (11:28)
--- NOTE | 2016-12-07 11:31 | Pre-Procedure Note/Attestation ---
Pre-Procedure Note/Attestation Complete Prior to Procedure Planned Procedure: not applicable Procedure Narrative: colonoscopy Indications for Procedure Pre-Operative Diagnosis: gib Attestation I attest that I discussed the nature of the procedure; its benefits; risks and complications; and alternatives (and the risks and benefits of such alternatives ), prior to the procedure, with the patient (or the patient's legal security systems sales representative). I attest that, if there was a reasonable possibility of needing a blood transfusion, the patient (or the patient's legal security systems sales representative) was given the [facility] standardized written summary, pursuant to the [place] Blood Safety Act ([place] Health and Safety Code # 1645, as amended). I attest that I re-evaluated the patient just prior to the surgery and that there has been no change in the patient's H&P, except as documented below: ANITHA MINOR Dec 07, 2016 11:31
[2016-12-07 11:38] LABS: ANISOCYTOSIS 1+; BAND NEUTROPHILS % (MANUAL) 0 % (0-8); BASOPHILS % (MANUAL) 0 % (0-2); EOSINOPHILS % (MANUAL) 3 % (0-3); HYPOCHROMASIA 1+; LYMPHOCYTES % (MANUAL) 6 % (20-45); NEUTROPHILS % (MANUAL) 84 % (45-75); PLATELET ESTIMATE DECREASED; PLATELET MORPHOLOGY NORMAL; TOTAL CELLS COUNTED 100
--- NOTE | 2016-12-07 11:38 | Endoscopy Procedure Note ---
Endoscopy Procedure Note Indication for Procedure: anemia Procedures Performed: colonoscopy Operative Findings/Diagnosis: hemorrhoids,2 polyps Specimen: yes Pt Tolerated Procedure Well: Yes Estimated Blood Loss: none Anesthesiologist: dain Anesthesia: MAC Implant(s) used?: No 50 yrs or older w/o bx or poly: Not Applicable 10yrs. F/U not recommended: Not Applicable ANITHA MINOR Dec 07, 2016 11:38
[2016-12-07] MEDS ORDERED: Norco 5mg/325mg tab ORAL PRN (11:45)
[2016-12-07] MEDS ORDERED: Hydromorphone 0.5mg/0.5ml inj IVP PRN (11:45)
[2016-12-07] MEDS ORDERED: fentaNYL 100 mcg/2 mL IV PRN (11:45)
--- NOTE | 2016-12-07 11:55 | Anethesia Preoperative Eval ---
Anesthesia Pre-op PMH/ROS General Date of Evaluation: Dec 07, 2016 Time of Evaluation: 11:54 Anesthesiologist: Danyel ASA Score: ASA 3 Mallampati Score Class I : Soft palate, uvula, fauces, pillars visible Class II: Soft palate, uvula, fauces visible Class III: Soft palate, base of uvula visible Class IV: Only hard plate visible Mallampati Classification: Class III Surgeon: Reinaldo Diagnosis: Anemia Surgical Procedure: Colonoscopy Anesthesia History: none Allergies: Coded Allergies: IBUPROFEN (Verified Allergy, Unknown, 11/14/11) PENICILLIN G (Verified Allergy, Unknown, 11/14/11) Medications: see eMAR Past Medical History Cardiovascular: Reports: HTN, arrhythmia, valve dz Pulmonary: Reports: COPD Gastrointestinal/Genitourinary: Reports: ESRD Neurologic/Psychiatric: Denies: CVA, TIA, dementia, depression/anxiety, other Endocrine: Reports: DM HEENT: Denies: [place] (L), [place] (R), cataract (L), cataract (R), glaucoma, other Hematology/Immune: Reports: anemia Musculoskeletal/Integumentary: Reports: DJD Anesthesia Pre-op Phys. Exam Physician Exam Last Vital Signs Date Time Temp Pulse Resp B/P Pulse Ox O2 Delivery O2 Flow Rate FiO2 12/07/16 11:20 97.7 96 18 115/61 95 Nasal Cannula 2.0 12/07/16 09:46 96 Constitutional: NAD Airway Exam Mallampati Score: Class III Anesthesia Pre-op A/P Labs Hematology Test 12/07/16 05:30 White Blood Count 5.8 K/UL (4.8-10.8) Red Blood Count 2.57 M/UL (4.70-6.10) L Hemoglobin 7.6 G/DL (14.2-18.0) L Hematocrit 24.1 % (42.0-52.0) L Mean Corpuscular Volume 94 FL (80-99) Mean Corpuscular Hemoglobin 29.5 PG (27.0-31.0) Mean Corpuscular Hemoglobin Concent 31.5 G/DL (32.0-36.0) L Red Cell Distribution Width 15.8 % (11.6-14.8) H Platelet Count 125 K/UL (150-450) L Mean Platelet Volume 6.4 FL (6.5-10.1) L Neutrophils (%) (Auto) % (45.0-75.0) Lymphocytes (%) (Auto) % (20.0-45.0) Monocytes (%) (Auto) % (1.0-10.0) Eosinophils (%) (Auto) % (0.0-3.0) Basophils (%) (Auto) % (0.0-2.0) Differential Total Cells Counted 100 Neutrophils % (Manual) 84 % (45-75) H Lymphocytes % (Manual) 6 % (20-45) L Monocytes % (Manual) 7 % (1-10) Eosinophils % (Manual) 3 % (0-3) Basophils % (Manual) 0 % (0-2) Band Neutrophils 0 % (0-8) Platelet Estimate Decreased L Platelet Morphology Normal Hypochromasia 1+ Anisocytosis 1+ Coagulation Test 12/07/16 05:30 Prothrombin Time 11.8 SEC (9.30-11.50) H Prothromb Time International Ratio 1.2 (0.9-1.1) H Chemistry Test 12/07/16 05:30 Sodium Level 137 mEQ/L (135-145) Potassium Level 4.0 mEQ/L (3.4-4.9) Chloride Level 92 mEQ/L (98-107) L Carbon Dioxide Level 26 mEQ/L (20-30) Anion Gap 19 (5-15) H Blood Urea Nitrogen 78 mg/dL (7-23) H Creatinine 11.3 mg/dL (0.7-1.2) H Estimat Glomerular Filtration Rate mL/min (>60) Glucose Level 87 mg/dL (74-106) Calcium Level 8.0 mg/dL (8.6-10.2) ÁLVARO DOMINGUEZ M.D. Dec 07, 2016 11:55
--- NOTE | 2016-12-07 11:57 | Immediate Post-Op Evaluation ---
Immediate Post-Op Evalulation Immediate Post-Op Evalulation Procedure: EGD Date of Evaluation: Dec 07, 2016 Time of Evaluation: 12:10 IV Fluids: 200 Blood Products: 0 Estimated Blood Loss: 0 Urinary Output: 0 Blood Pressure Systolic: 120 Blood Pressure Diastolic: 80 Pulse Rate: 65 Respiratory Rate: 20 O2 Sat by Pulse Oximetry: 98 Temperature (Fahrenheit): 97.8 Pain Score (1-10): 2 Nausea: No Vomiting: No Complications na Patient Status: awake Hydration Status: adequate Given Within 1 Hr of Incision: ÁLVARO Pritchard M.D. Dec 07, 2016 11:57
--- NOTE | 2016-12-07 11:58 | 48 Hour Post Anesthesia Eval ---
Post Anesthesia Evaluation Procedure: EGD Date of Evaluation: Dec 07, 2016 Time of Evaluation: 13:10 Blood Pressure Systolic: 120 0: 80 Pulse Rate: 65 Respiratory Rate: 20 Temperature (Fahrenheit): 98 O2 Sat by Pulse Oximetry: 97 Airway: patent Nausea: No Vomiting: No Pain Intensity: 2 Hydration Status: adequate Cardiopulmonary Status: stable Mental Status/LOC: patient returned to baseline Follow-up Care/Observations: na Post-Anesthesia Complications: na Follow-up care needed: N/A ÁLVARO YU M.D. Dec 07, 2016 11:58
--- NOTE | 2016-12-07 15:59 | Nephrology Progress Note ---
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 (4) Anemia in chronic kidney disease (5) Atrial fibrillation Plan he feels better, hd 12/07,stable restart epogen, venofer colonoscopy pending Subjective Constitutional: Reports: weakness HEENT: Reports: no symptoms Genitourinary: Reports: no symptoms Neurologic/Psychiatric: Reports: no symptoms Objective Objective Last 24 Hour Vital Signs Date Time Temp Pulse Resp B/P Pulse Ox O2 Delivery O2 Flow Rate FiO2 12/07/16 13:05 98.3 77 15 99/56 97 Nasal Cannula 2.0 12/07/16 12:40 66 18 101/60 98 Nasal Cannula 2.0 12/07/16 12:30 69 17 93/44 97 Nasal Cannula 2.0 12/07/16 12:20 72 16 96/40 98 Nasal Cannula 2.0 12/07/16 12:15 98.8 75 16 94/42 98 Nasal Cannula 2.0 12/07/16 12:00 65 12/07/16 11:58 65 20 97 12/07/16 11:57 65 20 98 12/07/16 11:20 97.7 96 18 115/61 95 Nasal Cannula 2.0 12/07/16 09:46 Room Air 2.0 96 12/07/16 08:17 96.9 82 20 103/60 95 Room Air 12/07/16 08:00 80 12/07/16 04:50 Nasal Cannula 2.0 96 12/07/16 04:00 76 12/07/16 04:00 97.7 78 16 93/57 95 Nasal Cannula 2.0 12/07/16 00:00 69 12/07/16 00:00 97.0 80 16 78/48 96 Room Air 12/06/16 20:00 71 12/06/16 20:00 97.7 81 18 106/53 Nasal Cannula 2.0 96 12/06/16 16:00 86 Intake and Output 12/06/16 12/07/16 19:00 07:00 Output Total 100 ml Balance -100 ml Output Urine Total 100 ml # Bowel Movements 4 Laboratory Tests 12/07/16 05:30: White Blood Count 5.8, Red Blood Count 2.57L, Hemoglobin 7.6L, Hematocrit 24.1L , Mean Corpuscular Volume 94, Mean Corpuscular Hemoglobin 29.5, Mean Corpuscular Hemoglobin Concent 31.5L, Red Cell Distribution Width 15.8H, Platelet Count 125L, Mean Platelet Volume 6.4L, Neutrophils (%) (Auto) , Lymphocytes (%) (Auto) , Monocytes (%) (Auto) , Eosinophils (%) (Auto) , Basophils (%) (Auto) , Differential Total Cells Counted 100, Neutrophils % ( Manual) 84H, Lymphocytes % (Manual) 6L, Monocytes % (Manual) 7, Eosinophils % ( Manual) 3, Basophils % (Manual) 0, Band Neutrophils 0, Platelet Estimate DecreasedL, Platelet Morphology Normal, Hypochromasia 1+, Anisocytosis 1+, Prothrombin Time 11.8H, Prothromb Time International Ratio 1.2H, Sodium Level 137, Potassium Level 4.0, Chloride Level 92L, Carbon Dioxide Level 26, Anion Gap 19H, Blood Urea Nitrogen 78H, Creatinine 11.3H, Estimat Glomerular Filtration Rate , Glucose Level 87, Calcium Level 8.0L Height (Feet): 6 Height (Inches): 1.00 Weight (Pounds): 194 General Appearance: no apparent distress EENT: PERRL/EOMI Neck: normal alignment Cardiovascular: regularly irregular Respiratory/Chest: lungs clear, normal breath sounds Abdomen: non tender, soft Extremities: other - no edema 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
--- NOTE | 2016-12-07 18:57 | General Progress Note ---
Assessment/Plan Assessment/Plan 1. Syncope. 2. Severe anemia, possible gastrointestinal bleed. 3. Severe coagulopathy with INR 5.1 due to therapeutic overdose of Coumadin. 4. End-stage renal disease, on dialysis 4 days weekly. 5. History of valvular heart disease. 6. Atrial flutter. 7. Chronic hypotension, now severely hypotensive. Hgb lower continue Protonix colonoscopy 2 polyps, hemorrhoids, no mention of bleeding HD DC plan tomorrow PT Subjective Constitutional: Reports: weakness Allergies: Coded Allergies: IBUPROFEN (Verified Allergy, Unknown, 11/14/11) PENICILLIN G (Verified Allergy, Unknown, 11/14/11) Objective Last 24 Hour Vital Signs Date Time Temp Pulse Resp B/P Pulse Ox O2 Delivery O2 Flow Rate FiO2 12/07/16 16:16 98.1 84 20 104/60 95 Nasal Cannula 2.0 12/07/16 13:05 98.3 77 15 99/56 97 Nasal Cannula 2.0 12/07/16 12:40 66 18 101/60 98 Nasal Cannula 2.0 12/07/16 12:30 69 17 93/44 97 Nasal Cannula 2.0 12/07/16 12:20 72 16 96/40 98 Nasal Cannula 2.0 12/07/16 12:15 98.8 75 16 94/42 98 Nasal Cannula 2.0 12/07/16 12:00 65 12/07/16 11:58 65 20 97 12/07/16 11:57 65 20 98 12/07/16 11:20 97.7 96 18 115/61 95 Nasal Cannula 2.0 12/07/16 09:46 Room Air 2.0 96 12/07/16 08:17 96.9 82 20 103/60 95 Room Air 12/07/16 08:00 80 12/07/16 04:50 Nasal Cannula 2.0 96 12/07/16 04:00 76 12/07/16 04:00 97.7 78 16 93/57 95 Nasal Cannula 2.0 12/07/16 00:00 69 12/07/16 00:00 97.0 80 16 78/48 96 Room Air 12/06/16 20:00 71 12/06/16 20:00 97.7 81 18 106/53 Nasal Cannula 2.0 96 Intake and Output 12/06/16 12/07/16 19:00 07:00 Output Total 100 ml Balance -100 ml Output Urine Total 100 ml # Bowel Movements 4 Laboratory Tests 12/07/16 05:30: White Blood Count 5.8, Red Blood Count 2.57L, Hemoglobin 7.6L, Hematocrit 24.1L , Mean Corpuscular Volume 94, Mean Corpuscular Hemoglobin 29.5, Mean Corpuscular Hemoglobin Concent 31.5L, Red Cell Distribution Width 15.8H, Platelet Count 125L, Mean Platelet Volume 6.4L, Neutrophils (%) (Auto) , Lymphocytes (%) (Auto) , Monocytes (%) (Auto) , Eosinophils (%) (Auto) , Basophils (%) (Auto) , Differential Total Cells Counted 100, Neutrophils % ( Manual) 84H, Lymphocytes % (Manual) 6L, Monocytes % (Manual) 7, Eosinophils % ( Manual) 3, Basophils % (Manual) 0, Band Neutrophils 0, Platelet Estimate DecreasedL, Platelet Morphology Normal, Hypochromasia 1+, Anisocytosis 1+, Prothrombin Time 11.8H, Prothromb Time International Ratio 1.2H, Sodium Level 137, Potassium Level 4.0, Chloride Level 92L, Carbon Dioxide Level 26, Anion Gap 19H, Blood Urea Nitrogen 78H, Creatinine 11.3H, Estimat Glomerular Filtration Rate , Glucose Level 87, Calcium Level 8.0L Height (Feet): 6 Height (Inches): 1.00 Weight (Pounds): 194 General Appearance: no apparent distress Cardiovascular: normal rate Respiratory/Chest: lungs clear DAYANA JOE Dec 07, 2016 18:57
--- NOTE | 2016-12-07 20:37 | Procedure Note ---
DATE OF PROCEDURE: 12/07/2016 SURGEON: Shady Reynolds M.D. PROCEDURE: Colonoscopy with snare polypectomy. ANESTHESIOLOGIST: Jose Miguel Najrea M.D. INSTRUMENT: Olympus adult flexible colonoscope. INDICATION: Anemia. REASON FOR PROCEDURE: The procedure, risks, benefits, and possible consequences, including hemorrhage, aspiration, perforation and infection, and alternative treatments, were explained to the patient/legal guardian by Dr. Shady Reynolds and the patient/legal guardian understood and accepted these risks. DESCRIPTION OF PROCEDURE: After informed consent was obtained and the patient was adequately sedated, first rectal exam was performed, which was normal. Then, the scope was advanced from the rectum into the cecum documented by appendiceal orifice, ileocecal valve, and right upper quadrant palpation. Quality of prep was fair. I would say about 15% of the colonic mucosa was not examined in this colonic prep. The patient had one polyp about 5 to 6 mm in the transverse colon removed with a cold biopsy forceps technique. In the area of the ascending colon, there was a clip on the remaining of the polyp. Because the polyp was not completely resected, we actually did another snare polypectomy and removed the rest of the polyp altogether. The rest of the exam was grossly normal. There is no active bleeding. Retroflexion of rectum showed evidence of internal hemorrhoids. SUMMARY OF FINDINGS: 1. Two colonic polyps removed, see above for details. 2. Internal hemorrhoids. RECOMMENDATIONS: 1. Followup biopsies and treat accordingly. 2. The patient has evidence of iron deficiency anemia with stool OB positivity, might benefit from capsule endoscopy as an outpatient. I want to thank Dr. Chapman for this kind referral. Shady Reynolds M.D. DR: KENA JOB#: [id number] CC: Ileana Chapman M.D.
[2016-12-07 20:38] LABS: HEMOLYSIS 1; IRON 33 ug/dL (59-158); TOTAL IRON BINDING CAPACITY 218 ug/dL (250-400)
[2016-12-07 20:45] LABS: FERRITIN 296 ng/mL (10-230)
[2016-12-07] MEDS: Atorvastatin 80mg tab ORAL SCH (20:57)
[2016-12-07] MEDS: Calcium Acetate 667mg Tab ORAL SCH (20:57)
[2016-12-07] MEDS ORDERED: Epogen (for ESRD on dialysis) SUBQ SCH (21:00)
[2016-12-07 22:09] LABS: MEAN CORPUSCULAR HEMOGLOBIN 30.8 PG (27.0-31.0); MEAN CORPUSCULAR HGB CONC 32.2 G/DL (32.0-36.0); MEAN CORPUSCULAR VOLUME 96 FL (80-99); MEAN PLATELET VOLUME 5.3 FL (6.5-10.1); PLATELET COUNT 113 K/UL (150-450); RED BLOOD COUNT 2.43 M/UL (4.70-6.10); RED CELL DISTRIBUTION WIDTH 16.1 % (11.6-14.8); WHITE BLOOD COUNT 7.5 K/UL (4.8-10.8)
--- NOTE | 2016-12-07 22:28 | General Progress Note ---
Assessment/Plan Assessment/Plan Assessment - GI bleed - EGD negative - Coagulopathy - corrected - severe anemia - valvular heart disease - other list of medical problems as dictated Recommendations - follow labs - po diet - PPI Subjective Allergies: Coded Allergies: IBUPROFEN (Verified Allergy, Unknown, 11/14/11) PENICILLIN G (Verified Allergy, Unknown, 11/14/11) Subjective feels OK s/p colonoscopy 2 colon polyps removed Objective Last 24 Hour Vital Signs Date Time Temp Pulse Resp B/P Pulse Ox O2 Delivery O2 Flow Rate FiO2 12/07/16 20:00 97.2 101 20 101/57 94 Nasal Cannula 2.0 12/07/16 16:16 98.1 84 20 104/60 95 Nasal Cannula 2.0 12/07/16 13:05 98.3 77 15 99/56 97 Nasal Cannula 2.0 12/07/16 12:40 66 18 101/60 98 Nasal Cannula 2.0 12/07/16 12:30 69 17 93/44 97 Nasal Cannula 2.0 12/07/16 12:20 72 16 96/40 98 Nasal Cannula 2.0 12/07/16 12:15 98.8 75 16 94/42 98 Nasal Cannula 2.0 12/07/16 12:00 65 12/07/16 11:58 65 20 97 12/07/16 11:57 65 20 98 12/07/16 11:20 97.7 96 18 115/61 95 Nasal Cannula 2.0 12/07/16 09:46 Room Air 2.0 96 12/07/16 08:17 96.9 82 20 103/60 95 Room Air 12/07/16 08:00 80 12/07/16 04:50 Nasal Cannula 2.0 96 12/07/16 04:00 76 12/07/16 04:00 97.7 78 16 93/57 95 Nasal Cannula 2.0 12/07/16 00:00 69 12/07/16 00:00 97.0 80 16 78/48 96 Room Air Intake and Output 12/06/16 12/07/16 19:00 07:00 Output Total 100 ml Balance -100 ml Output Urine Total 100 ml # Bowel Movements 4 Laboratory Tests 12/07/16 05:30: White Blood Count 5.8, Red Blood Count 2.57L, Hemoglobin 7.6L, Hematocrit 24.1L , Mean Corpuscular Volume 94, Mean Corpuscular Hemoglobin 29.5, Mean Corpuscular Hemoglobin Concent 31.5L, Red Cell Distribution Width 15.8H, Platelet Count 125L, Mean Platelet Volume 6.4L, Neutrophils (%) (Auto) , Lymphocytes (%) (Auto) , Monocytes (%) (Auto) , Eosinophils (%) (Auto) , Basophils (%) (Auto) , Differential Total Cells Counted 100, Neutrophils % ( Manual) 84H, Lymphocytes % (Manual) 6L, Monocytes % (Manual) 7, Eosinophils % ( Manual) 3, Basophils % (Manual) 0, Band Neutrophils 0, Platelet Estimate DecreasedL, Platelet Morphology Normal, Hypochromasia 1+, Anisocytosis 1+, Prothrombin Time 11.8H, Prothromb Time International Ratio 1.2H, Sodium Level 137, Potassium Level 4.0, Chloride Level 92L, Carbon Dioxide Level 26, Anion Gap 19H, Blood Urea Nitrogen 78H, Creatinine 11.3H, Estimat Glomerular Filtration Rate , Glucose Level 87, Calcium Level 8.0L 12/07/16 19:26: Iron Level 33L, Total Iron Binding Capacity 218L, Percent Iron Saturation 15, Unsaturated Iron Binding 185, Ferritin 296H 12/07/16 21:45: White Blood Count 7.5, Red Blood Count 2.43L, Hemoglobin 7.5L, Hematocrit 23.3L , Mean Corpuscular Volume 96, Mean Corpuscular Hemoglobin 30.8, Mean Corpuscular Hemoglobin Concent 32.2, Red Cell Distribution Width 16.1H, Platelet Count 113L, Mean Platelet Volume 5.3L, Neutrophils (%) (Auto) , Lymphocytes (%) (Auto) , Monocytes (%) (Auto) , Eosinophils (%) (Auto) , Basophils (%) (Auto) , Neutrophils % (Manual) [Pending], Lymphocytes % (Manual) [Pending], Platelet Estimate [Pending], Platelet Morphology [Pending] Height (Feet): 6 Height (Inches): 1.00 Weight (Pounds): 194 Objective WDWN NCAT supple CTA RRR Soft ND NT no edema non focal COLECAROL ANN ZAYAS Dec 07, 2016 22:28
[2016-12-08] VITALS: BP 100/53
[2016-12-08 01:38] LABS: BASOPHILS % (MANUAL) 1 % (0-2); EOSINOPHILS % (MANUAL) 2 % (0-3); LYMPHOCYTES % (MANUAL) 4 % (20-45); NEUTROPHILS % (MANUAL) 84 % (45-75); TOTAL CELLS COUNTED 100
[2016-12-08 01:39] LABS: BAND NEUTROPHILS % (MANUAL) 0 % (0-8); PLATELET ESTIMATE DECREASED; PLATELET MORPHOLOGY NORMAL
[2016-12-08 04:00] VITALS: BP 95/46
[2016-12-08 04:03] LABS: MEAN CORPUSCULAR HEMOGLOBIN 30.8 PG (27.0-31.0); MEAN CORPUSCULAR HGB CONC 32.5 G/DL (32.0-36.0); MEAN CORPUSCULAR VOLUME 95 FL (80-99); MEAN PLATELET VOLUME 6.5 FL (6.5-10.1); PLATELET COUNT 128 K/UL (150-450); RED BLOOD COUNT 2.49 M/UL (4.70-6.10); RED CELL DISTRIBUTION WIDTH 15.9 % (11.6-14.8); WHITE BLOOD COUNT 7.8 K/UL (4.8-10.8)
[2016-12-08] MEDS: Norco 5mg/325mg tab ORAL PRN (05:42)
[2016-12-08 08:33] VITALS: BP 92/48
[2016-12-08] MEDS: Renvela 800mg Pkt ORAL SCH ×2 (08:51→13:26)
[2016-12-08] MEDS: Midodrine 10mg tab ORAL SCH ×2 (08:51→13:25)
[2016-12-08] MEDS: Meclizine 25mg tab ORAL SCH ×2 (08:51→13:25)
[2016-12-08] MEDS: Pantoprazole Inj IVP SCH (08:52)
[2016-12-08] MEDS: Sensipar 30mg Tab ORAL SCH (08:52)
[2016-12-08] MEDS: Amiodarone 200mg tab ORAL SCH (08:54)
[2016-12-08] MEDS: Miralax 17gm pkt ORAL PRN (09:08)
[2016-12-08 11:33] VITALS: BP 91/56
[2016-12-08] MEDS ORDERED: IRON325 M2 PO (14:42)
[2016-12-08] MEDS ORDERED: Tubing IV Secondary IV ONE (15:26)
[2016-12-08] MEDS ORDERED: D5 1/2NS 1000ml IV ONE (15:26)
[2016-12-08 16:00] VITALS: BP 131/76
--- NOTE | 2016-12-08 17:47 | Discharge Summary ---
Discharge Summary Hospital Course Date of Admission Dec 01, 2016 at 07:09 Date of Discharge 12/08/16 Admitting Diagnosis anemia, syncope HPI Aneesh Peraza is a 71 year old male who was admitted on Dec 01, 2016 at 07: 09 for Anemia, Syncope Consultations renal, GI Procedures EGD, colonoscopy Hospital Course severe anemia better w transfusions BP improved dialyzed 3x/week stool OB + EGD and colon with polyps but no evident bleeding coumadin stopped and INR normal at dc 1. Syncope. 2. Severe anemia, possible gastrointestinal bleed. 3. Severe coagulopathy with INR 5.1 due to therapeutic overdose of Coumadin. 4. End-stage renal disease, on dialysis 4 days weekly. 5. History of valvular heart disease. 6. Atrial flutter. 7. Chronic hypotension, severe Discharge Medications Continued Medications: Amiodarone Hcl* (Amiodarone Hcl*) 400 Mg Tablet 200 MG ORAL EVERY 12 HOURS, TAB Atorvastatin Calcium* (Atorvastatin Calcium*) 40 Mg Tablet 80 MG ORAL BEDTIME, TAB Calcium Acetate (Calcium Acetate) 667 Mg Capsule 667 MG PO, CAP Cinacalcet* (Sensipar*) 30 Mg Tablet 60 MG ORAL DAILY, TAB Ferrous Sulfate (Iron) 325 Mg Capsule.er 325 MG PO THREE TIMES A DAY, CAP Hydrocodone Bit/Acetaminophen 5-325* ([place] 5-325*) 1 Each Tablet 1 TAB ORAL Q6H PRN for For Pain, #20 TAB Loratadine (Loratadine) 10 Mg Tablet 10 MG PO, TAB Meclizine Hcl* (Meclizine*) 25 Mg Tablet 25 MG ORAL THREE TIMES A DAY, TAB Midodrine* (Proamatine*) 10 Mg Tablet 10 MG ORAL THREE TIMES A DAY, TAB Sevelamer Carbonate* (Renvela*) 0.8 Gm Powd.pack 800 MG ORAL THREE TIMES A DAY, PACK Discontinued Medications: Warfarin Sod* (Warfarin Sod*) 2 Mg Tablet 2 MG ORAL DAILY, TAB Discharge Condition Upon Discharge: improving Discharge Disposition Patient was discharged to home Discharge Diagnoses: (1) Syncope (2) GI bleed (3) Anemia in chronic kidney disease (4) Atrial fibrillation (5) End-stage renal disease (6) Hypotension, unspecified DAYANA JOE Dec 08, 2016 17:47
[2016-12-08] MEDS ORDERED: Iron Sucrose 100 MG in NS 55 ML IVPB SCH (21:00)
--- NOTE | 2016-12-08 21:48 | General Progress Note ---
Assessment/Plan Assessment/Plan Assessment - GI bleed - EGD negative - Coagulopathy - corrected - severe anemia - valvular heart disease - other list of medical problems as dictated Recommendations - follow labs - po diet - PPI - d/c planning Subjective Allergies: Coded Allergies: IBUPROFEN (Verified Allergy, Unknown, 11/14/11) PENICILLIN G (Verified Allergy, Unknown, 11/14/11) Subjective feels OK eating OK no abd complaints Objective Last 24 Hour Vital Signs Date Time Temp Pulse Resp B/P Pulse Ox O2 Delivery O2 Flow Rate FiO2 12/08/16 12:00 60 12/08/16 11:33 97.5 62 18 91/56 97 Nasal Cannula 2.0 12/08/16 08:33 97.3 62 20 92/48 97 Nasal Cannula 2.0 12/08/16 08:00 67 12/08/16 04:00 65 12/08/16 04:00 98.8 69 20 95/46 94 Nasal Cannula 2.0 12/08/16 00:00 67 12/08/16 00:00 97.9 61 20 100/53 94 Nasal Cannula 2.0 Intake and Output 12/07/16 12/08/16 19:00 07:00 Intake Total 120 ml 30 ml Output Total 2110 ml Balance -1990 ml 30 ml Intake Oral 120 ml 30 ml Hemodialysis UF 2110 ml # Bowel Movements 1 Laboratory Tests 12/08/16 03:45: White Blood Count 7.8, Red Blood Count 2.49L, Hemoglobin 7.7L, Hematocrit 23.6L , Mean Corpuscular Volume 95, Mean Corpuscular Hemoglobin 30.8, Mean Corpuscular Hemoglobin Concent 32.5, Red Cell Distribution Width 15.9H, Platelet Count 128L, Mean Platelet Volume 6.5, Neutrophils (%) (Auto) , Lymphocytes (%) (Auto) , Monocytes (%) (Auto) , Eosinophils (%) (Auto) , Basophils (%) (Auto) Height (Feet): 6 Height (Inches): 1.00 Weight (Pounds): 194 Objective WDWN NCAT supple CTA RRR Soft ND NT no edema non focal CAROL ANN CARLOS Dec 08, 2016 21:48
--- NOTE | 2016-12-08 22:04 | Nephrology Progress Note ---
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 (4) Anemia in chronic kidney disease (5) Atrial fibrillation Plan he feels better, hd 12/07,stable restart epogen, venofer colonoscopy, tolerates anemia no active bleed, d/w dr danielle, ok for dc Subjective Constitutional: Reports: weakness HEENT: Reports: no symptoms Genitourinary: Reports: no symptoms Neurologic/Psychiatric: Reports: no symptoms Objective Objective Last 24 Hour Vital Signs Date Time Temp Pulse Resp B/P Pulse Ox O2 Delivery O2 Flow Rate FiO2 12/08/16 12:00 60 12/08/16 11:33 97.5 62 18 91/56 97 Nasal Cannula 2.0 12/08/16 08:33 97.3 62 20 92/48 97 Nasal Cannula 2.0 12/08/16 08:00 67 12/08/16 04:00 65 12/08/16 04:00 98.8 69 20 95/46 94 Nasal Cannula 2.0 12/08/16 00:00 67 12/08/16 00:00 97.9 61 20 100/53 94 Nasal Cannula 2.0 Intake and Output 12/07/16 12/08/16 19:00 07:00 Intake Total 120 ml 30 ml Output Total 2110 ml Balance -1990 ml 30 ml Intake Oral 120 ml 30 ml Hemodialysis UF 2110 ml # Bowel Movements 1 Laboratory Tests 12/08/16 03:45: White Blood Count 7.8, Red Blood Count 2.49L, Hemoglobin 7.7L, Hematocrit 23.6L , Mean Corpuscular Volume 95, Mean Corpuscular Hemoglobin 30.8, Mean Corpuscular Hemoglobin Concent 32.5, Red Cell Distribution Width 15.9H, Platelet Count 128L, Mean Platelet Volume 6.5, Neutrophils (%) (Auto) , Lymphocytes (%) (Auto) , Monocytes (%) (Auto) , Eosinophils (%) (Auto) , Basophils (%) (Auto) Height (Feet): 6 Height (Inches): 1.00 Weight (Pounds): 194 General Appearance: no apparent distress, alert Cardiovascular: regularly irregular Abdomen: non tender Extremities: other - no edema 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
== END 2016-12-08 18:00 | disposition home or self-care (01) | DRG 377 ==
LOC: EDBD 05:40 → EMR 05:50 → 2E 07:09 → EDBEDREQ 13:29 → 2E 12-07 15:42
PROC: 30233N1 Transfusion of Nonautologous Red Blood Cells into Peripheral Vein, Percutaneous Approach (ICD-10-PCS; principal; 2016-12-01)
PROC: 30233K1 Transfusion of Nonautologous Frozen Plasma into Peripheral Vein, Percutaneous Approach (ICD-10-PCS; 2016-12-02)
PROC: 5A1D60Z (ICD-10-PCS; 2016-12-02)
PROC: 0DB68ZX Excision of Stomach, Via Natural or Artificial Opening Endoscopic, Diagnostic (ICD-10-PCS; 2016-12-05)
PROC: 0DBL8ZZ Excision of Transverse Colon, Via Natural or Artificial Opening Endoscopic (ICD-10-PCS; 2016-12-07)
PROC: 0DBK8ZZ Excision of Ascending Colon, Via Natural or Artificial Opening Endoscopic (ICD-10-PCS; 2016-12-07)
DX: K92.2 Gastrointestinal hemorrhage, unspecified (principal); N18.6 End stage renal disease; D68.9 Coagulation defect, unspecified; I95.89 Other hypotension; I48.92 Unspecified atrial flutter; I50.32 Chronic diastolic (congestive) heart failure; Z99.2 Dependence on renal dialysis; Z79.01 Long term (current) use of anticoagulants; Z88.6 Allergy status to analgesic agent; Z88.0 Allergy status to penicillin; Z86.711 Personal history of pulmonary embolism; D63.1 Anemia in chronic kidney disease; I48.0 Paroxysmal atrial fibrillation; Z95.3 Presence of xenogenic heart valve; Z85.89 Personal history of malignant neoplasm of other organs and systems; Z87.891 Personal history of nicotine dependence; K64.8 Other hemorrhoids; R55 Syncope and collapse; D12.2 Benign neoplasm of ascending colon; D12.3 Benign neoplasm of transverse colon; D50.0 Iron deficiency anemia secondary to blood loss (chronic)
CPT/HCPCS: 29260; 36415; 70450; 71010; 72125; 74177; 80048; 80053; 82270; 82550; 82553; 82607; 82728; 82746; 82962; 83540; 83550; 84484; 85007; 85025; 85044; 85610; 85730; 86850; 86900; 86901; 86920; 86927; 87081; 93005; 94003; 94150; J2765; J3430

== ENCOUNTER 2017-07-26 01:53 | Inpatient (IN) | payer MEDICARE, OTHER ==
[~2017-07-26] VITALS: Ht 188 cm; Wt 77.1 kg
[~2017-07-26 01:53] MED LIST changes: +AMIODARONE HCL400 M1 ORAL; +ATORVASTATIN CA40 MG ORAL; +CALCIUM ACETAT667 M1 PO; +IRON325 M2 PO; +LORATADINE10 M2 PO; +MECLIZINE HCL25 MG ORAL; +MIDODRINE HCL10 MG ORAL; +RENVELA0.8 GM ORAL; +SENSIPAR30 MG ORAL; +WARFARIN SODIUM2 MG ORAL
[2017-07-26] MEDS ORDERED: Miralax 17gm pkt ORAL PRN (07:00)
[2017-07-26 08:00] VITALS: BP 77/45
[2017-07-26] MEDS ORDERED: Midodrine 10mg tab ORAL SCH (09:00)
[2017-07-26] MEDS: Heparin 5000 units/ml inj SUBQ SCH ×2 (09:00→20:18)
[2017-07-26] MEDS: Midodrine 10mg tab ORAL SCH ×4 (09:43→17:27)
[2017-07-26] MEDS: Cefepime HCl 1 GM in D5W 55 ML IVPB SCH (09:45)
[2017-07-26] MEDS ORDERED: Vancomycin 1gm in D5W 275ml IVPB ONE (10:00)
--- NOTE | 2017-07-26 10:03 | Diagnostic Imaging Report ---
Indication: SOB Technique: One view of the chest Comparison: 12/01/2016 Findings: There is bilateral mid and lower lung infiltrates versus edema, right-sided pleural effusion, appearing similar to the prior study. The heart is mildly enlarged. Is evidence of prior median sternotomy. Impression: Bilateral mid and lower lung infiltrates versus edema, right-sided pleural effusion.
[2017-07-26 10:53] VITALS: BP 77/45
[2017-07-26 11:04] VITALS: BP 77/45
[2017-07-26] MEDS: Albuterol 90mcg Inhaler 8gm INH PRN ×3 (11:11→20:01)
[2017-07-26] MEDS: Atorvastatin 80mg tab ORAL SCH (11:30)
[2017-07-26] MEDS: Renvela 2400 mg pkt NG SCH ×3 (11:37→17:26)
[2017-07-26 12:00] VITALS: BP 102/52
--- NOTE | 2017-07-26 12:10 | Consultation ---
Consult Note Consult Note asked to eval for dialysis management patient interviewed and examined Has fistula on left arm on HD M W Fr Assessment/Plan ESRD Anemia h/o GI bleed At fib Plan: HD today will evaluate the data in [facility] record SUNNY PRECIADO Jul 26, 2017 12:10
[2017-07-26] MEDS: Docusate 100mg cap ORAL SCH ×2 (13:00→17:27)
[2017-07-26 13:17] LABS: BASOPHILS % (AUTO) 0.9 % (0.0-2.0); EOSINOPHILS % (AUTO) 2.8 % (0.0-3.0); HEMATOCRIT 32.4 % (42.0-52.0); HEMOGLOBIN 9.9 G/DL (14.2-18.0); LYMPHOCYTES % (AUTO) 13.4 % (20.0-45.0); MEAN CORPUSCULAR VOLUME 93 FL (80-99); MONOCYTES % (AUTO) 14.6 % (1.0-10.0); NEUTROPHILS % (AUTO) 68.3 % (45.0-75.0); PLATELET COUNT 114 K/UL (150-450); RED BLOOD COUNT 3.49 M/UL (4.70-6.10); RED CELL DISTRIBUTION WIDTH 19.3 % (11.6-14.8); WHITE BLOOD COUNT 6.3 K/UL (4.8-10.8)
[2017-07-26 13:30] LABS: ALANINE AMINOTRANSFERASE 18 U/L (12-78); ALBUMIN 3.2 G/DL (3.4-5.0); ALBUMIN/GLOBULIN RATIO 0.9 (1.0-2.7); ALKALINE PHOSPHATASE 127 U/L (46-116); ANION GAP 17 mmol/L (5-15); ASPARTATE AMINO TRANSFERASE 32 U/L (15-37); BILIRUBIN,TOTAL 0.8 MG/DL (0.2-1.0); BLOOD UREA NITROGEN 74 mg/dL (7-18); CALCIUM 8.7 MG/DL (8.5-10.1); CARBON DIOXIDE 20 MMOL/L (21-32); CHLORIDE 96 MMOL/L (98-107); CREATININE 14.8 MG/DL (0.55-1.30); PHOSPHORUS 5.5 MG/DL (2.5-4.9); POTASSIUM 4.2 MMOL/L (3.5-5.1); SODIUM 133 MMOL/L (136-145)
[2017-07-26 13:41] LABS: FERRITIN 600 NG/ML (8-388)
[2017-07-26 14:06] LABS: % IRON SATURATION 18 % (15-50); IRON 33 ug/dL (50-175); TOTAL IRON BINDING CAPACITY 180 ug/dL (250-450)
[2017-07-26 16:00] VITALS: BP 95/56
--- NOTE | 2017-07-26 16:38 | Consultation ---
History of Present Illness General Date patient seen: Jul 26, 2017 Chief Complaint: Acute dyspnea and intractable cough Referring physician: Dr. Pink Reason for Consultation: Acute dyspnea and intractable cough Present Illness HPI The patient is a 71 yo gentle lady with pmhx Lung cancer diagnosed in december 2016 at [facility] under care of Dr. Nunn radiology oncology department, she also has a pmhx of chronic diastolic heart failure chronic obstructive pulmonary disease, history of pulmonary hypertension, end-stage renal disease, atrial fibrillation history of polycystic kidney disease, atrial fibrillation, history of pulmonary embolism, history of renal cell adenocarcinoma. [place] [facility] [place] difficulty with breathing and intractable cough. She denies any sputum or blood production with cough, also denies any chest pain or fever or chills. I was asked to consult from pulmonary and internal medicine point of view. The patients emergency room chest radiograph is significant for bilateral mid and lower lung infiltrates versus edema, right-sided pleural effusion. Patient has been initiated on broad spectrum antibiotics and supplemental oxygen with breathing treatments as needed for COPD excacerbation. Allergies: Coded Allergies: IBUPROFEN (Verified Allergy, Unknown, 11/14/11) PENICILLIN G (Verified Allergy, Unknown, 11/14/11) PENICILLINS (Unverified Allergy, Unknown, 08/02/17) Medication History Scheduled Amiodarone Hcl* (Amiodarone Hcl*), 200 MG ORAL EVERY 12 HOURS, (Reported) Atorvastatin Calcium* (Atorvastatin Calcium*), 80 MG ORAL BEDTIME, (Reported) Cinacalcet* (Sensipar*), 60 MG ORAL DAILY, (Reported) Ferrous Sulfate (Iron), 325 MG PO THREE TIMES A DAY, (Reported) Meclizine Hcl* (Meclizine*), 25 MG ORAL THREE TIMES A DAY, (Reported) Midodrine* (Proamatine*), 10 MG ORAL THREE TIMES A DAY, (Reported) Sevelamer Carbonate* (Renvela*), 800 MG ORAL THREE TIMES A DAY, (Reported) Scheduled PRN Hydrocodone Bit/Acetaminophen 5-325* ([place] 5-325*), 1 TAB ORAL Q6H PRN for For Pain Miscellaneous Medications Calcium Acetate (Calcium Acetate), 667 MG PO, (Reported) Loratadine (Loratadine), 10 MG PO, (Reported) Patient History Healthcare decision maker self Resuscitation status Full Code Advanced Directive on File Past Medical/Surgical History Past Medical/Surgical History: (1) Contusion of leg, right (2) Fracture of finger (3) Fracture of finger (4) GI bleed (5) End-stage renal disease (6) Atrial fibrillation (7) Hypotension (8) CHF (congestive heart failure) (9) Pneumonia (10) ESRD (end stage renal disease) on dialysis (11) Pleural effusion on right (12) Lung cancer (13) Troponin level elevated (14) Respiratory distress Review of Systems Constitutional: Reports: malaise, weakness Respiratory: Reports: cough, shortness of breath Physical Exam General Appearance: moderate distress Lines, tubes and drains: peripheral HEENT: normocephalic, atraumatic, anicteric, PERRL Neck: non-tender, normal alignment, supple, normal inspection Respiratory/Chest: chest wall non-tender, crackles/rales, rhonchi - bilaterally , expiratory wheezing, inspiratory wheezing, pleural rub Breasts: no masses Cardiovascular/Chest: normal peripheral pulses, normal rate, regular rhythm, no JVD Abdomen: normal bowel sounds, non tender, soft, no organomegaly, no mass Genitourinary/Rectal: normal genital exam, normal rectal exam Extremities: normal range of motion, non-tender, normal inspection, no calf tenderness Skin Exam: normal pigmentation, warm/dry 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, no motor/sensory deficits Last 24 Hour Vital Signs Date Time Temp Pulse Resp B/P (MAP) Pulse Ox O2 Delivery O2 Flow Rate FiO2 07/26/17 16:00 97.0 83 18 95/56 97 Nasal Cannula 2.0 07/26/17 14:44 96 18 Room Air 07/26/17 14:43 93 18 Room Air 07/26/17 12:00 97.0 62 18 102/52 98 Nasal Cannula 2.0 07/26/17 11:12 95 18 96 Room Air 07/26/17 11:11 96 18 94 Room Air 07/26/17 08:00 96.4 82 16 77/45 95 Nasal Cannula 2.0 Intake and Output 07/26/17 07/27/17 19:00 07:00 Intake Total 55 ml Balance 55 ml IV Total 55 ml # Bowel Movements 1 Laboratory Tests Test 07/26/17 13:00 White Blood Count 6.3 K/UL (4.8-10.8) Red Blood Count 3.49 M/UL (4.70-6.10) L Hemoglobin 9.9 G/DL (14.2-18.0) L Hematocrit 32.4 % (42.0-52.0) L Mean Corpuscular Volume 93 FL (80-99) Mean Corpuscular Hemoglobin 28.3 PG (27.0-31.0) Mean Corpuscular Hemoglobin Concent 30.4 G/DL (32.0-36.0) L Red Cell Distribution Width 19.3 % (11.6-14.8) H Platelet Count 114 K/UL (150-450) L Mean Platelet Volume 6.4 FL (6.5-10.1) L Neutrophils (%) (Auto) 68.3 % (45.0-75.0) Lymphocytes (%) (Auto) 13.4 % (20.0-45.0) L Monocytes (%) (Auto) 14.6 % (1.0-10.0) H Eosinophils (%) (Auto) 2.8 % (0.0-3.0) Basophils (%) (Auto) 0.9 % (0.0-2.0) Sodium Level 133 MMOL/L (136-145) L Potassium Level 4.2 MMOL/L (3.5-5.1) Chloride Level 96 MMOL/L (98-107) L Carbon Dioxide Level 20 MMOL/L (21-32) L Anion Gap 17 mmol/L (5-15) H Blood Urea Nitrogen 74 mg/dL (7-18) H Creatinine 14.8 MG/DL (0.55-1.30) H Estimat Glomerular Filtration Rate mL/min (>60) Glucose Level 109 MG/DL (74-106) H Uric Acid 9.2 MG/DL (2.6-7.2) H Calcium Level 8.7 MG/DL (8.5-10.1) Phosphorus Level 5.5 MG/DL (2.5-4.9) H Iron Level 33 ug/dL (50-175) L Total Iron Binding Capacity 180 ug/dL (250-450) L Percent Iron Saturation 18 % (15-50) Unsaturated Iron Binding 147 ug/dL (112-346) Ferritin 600 NG/ML (8-388) H Total Bilirubin 0.8 MG/DL (0.2-1.0) Aspartate Amino Transf (AST/SGOT) 32 U/L (15-37) Alanine Aminotransferase (ALT/SGPT) 18 U/L (12-78) Alkaline Phosphatase 127 U/L (46-116) H C-Reactive Protein, Quantitative 2.0 mg/dL (0.00-0.90) H Pro-B-Type Natriuretic Peptide 33841 pg/mL (0-125) H Total Protein 6.7 G/DL (6.4-8.2) Albumin 3.2 G/DL (3.4-5.0) L Globulin 3.5 g/dL Albumin/Globulin Ratio 0.9 (1.0-2.7) L Vitamin B12 Level 957 PG/ML (193-986) Folate 7.0 NG/ML (3.1-17.5) Height (Feet): 6 Height (Inches): 2.00 Weight (Pounds): 170 Medications Current Medications Medications (Trade) Dose Ordered Sig/Clotilde Route PRN Reason Start Time Stop Time Status Last Admin Dose Admin Acetaminophen/ Hydrocodone Bitart ([place] 5/325) 1 tab Q6H PRN ORAL For Pain 07/26/17 07:00 08/02/17 06:59 Albuterol Sulfate (Proventil MDI) 2 puff Q4H PRN INH COUGH/SHORTNESS OF BREATH 07/26/17 07:45 08/25/17 07:44 07/26/17 14:38 Atorvastatin Calcium (Lipitor) 80 mg DAILY ORAL 07/26/17 09:00 08/25/17 08:59 07/26/17 11:30 Cefepime HCl 1 gm/ Dextrose 55 ml @ 110 mls/hr Q24H IVPB 07/26/17 09:00 08/02/17 08:59 07/26/17 09:45 Docusate Sodium (Colace) 100 mg TWICE A DAY ORAL 07/26/17 13:00 08/25/17 12:59 Epoetin Randolph (Procrit (for ESRD on dialysis)) 10,000 units MON-WED-FRI SUBQ 07/26/17 21:00 08/25/17 20:59 Heparin Sodium (Porcine) (Heparin 5000 units/ml) 5,000 units EVERY 12 HOURS SUBQ 07/26/17 09:00 121/17 08:59 Midodrine (Pro-Amatine) 10 mg MoWeFrSa@0900 ORAL 07/26/17 09:00 08/25/17 08:59 Midodrine (Pro-Amatine) 10 mg TIAC ORAL 07/26/17 09:40 08/25/17 09:39 07/26/17 13:00 Non-Formulary Medication (Non-Formulary Med) 1 ea DAILY ORAL 07/26/17 09:00 08/25/17 08:59 UNV Pantoprazole (Protonix) 40 mg DAILY ORAL 07/26/17 09:00 08/25/17 08:59 07/26/17 11:31 Polyethylene Glycol (Miralax) 17 gm DAILY PRN ORAL Constipation 07/26/17 07:00 08/25/17 06:59 Sevelamer Carbonate (Renvela) 2,400 mg THREE TIMES A DAY NG 07/26/17 09:00 08/25/17 08:59 07/26/17 11:37 Trazodone HCl (Desyrel) 50 mg BEDTIME ORAL 07/26/17 21:00 08/25/17 20:59 Vancomycin HCl (Vanco rx to dose) 1 ea DAILY PRN MISC Per rx protocol 07/26/17 07:00 08/25/17 06:59 Assessment/Plan Assessment/Plan Acute dyspnea Intractable cough Lung cancer diagnosed december 2016 Pleural effusion on right Bilateral Pnuemonia ESRD (end stage renal disease) on dialysis Atrial fibrillation Plan Supplemental oxygen titrate FiO2 up maintain O2 sat above 92% Aspiration precuations Breathing treatments as needed for SOB Pulmonary hygiene anti-tussives as needed for cough Symptomatic treatment Since pleural effusion is very common in ESRF patients, since there is no fever or leukocytosis. I wouldn't do any thoracentesis for now, Unless pt becomes symptomatic. TEHA WEI Jul 26, 2017 16:38
[2017-07-26] MEDS: Meclizine 25mg tab ORAL SCH (17:27)
--- NOTE | 2017-07-26 17:32 | History and Physical Report ---
DATE OF ADMISSION: 07/26/2017 CHIEF COMPLAINT: The patient is a 71-year-old male who presents with chief complaint of cough. HISTORY OF PRESENT ILLNESS: The patient initially presented to [facility] emergency room. The patient has a history of lung cancer, which was diagnosed in December of 2016. The patient is followed at [facility] by Dr. Nunn. The patient is transferred to [facility] for insurance purposes. The patient is admitted for cough to rule out pneumonia. PAST MEDICAL HISTORY: Significant for: 1. Lung cancer diagnosed in December 2016. The patient is followed by Dr. Nunn at [facility]. 2. Chronic diastolic heart failure. 3. Chronic obstructive pulmonary disease. 4. History of pulmonary hypertension. 5. End-stage renal disease. 6. Atrial fibrillation. 7. History of polycystic kidney disease. 8. Atrial fibrillation. 9. History of pulmonary embolism. 10. History of renal cell adenocarcinoma. PAST SURGICAL HISTORY: Significant for 1. Bilateral nephrectomy. 2. Left knee surgery. 3. Left tibia-fibula open reduction and internal fixation. 4. Left heel fracture repair. 5. Mechanical tricuspid valve. 6. Porcine tricuspid valve replacement. 7. Left inguinal hernia repair. 8. Left arteriovenous graft. CURRENT MEDICATIONS: 1. Amiodarone 200 mg one-half tablet p.o. daily. 2. Renvela 800 mg p.o. three times a day. 3. Coumadin unknown dose daily. 4. Calcium 667 mg p.o. daily. 5. Aspirin 81 mg one tablet p.o. daily. ALLERGIES: 1. Penicillin. 2. Ibuprofen. 3. Unknown anesthesia. SOCIAL HISTORY: The patient is single. The patient denies tobacco use having quit in 1994. The patient denies alcohol or drug abuse. REVIEW OF SYSTEMS: CONSTITUTIONAL: The patient complains of weight loss of more than 50 pounds over the past year. The patient denies fevers or chills. HEENT: The patient denies ear or throat pain. The patient denies headache. CARDIOVASCULAR: The patient denies palpitations or chest pain. CHEST: The patient complains of cough as above. The patient denies wheezes. ABDOMEN: The patient denies nausea, vomiting, diarrhea, or constipation. GENITOURINARY: The patient denies dysuria or increased frequency of urination. NEUROMUSCULAR: The patient denies seizures or generalized weakness. PHYSICAL EXAMINATION: GENERAL: The patient is well developed and well nourished thin-appearing male, in no apparent distress. VITAL SIGNS: Temperature 96.4 degrees, respirations 16, pulse 82, blood pressure 77/45. HEENT: Eyes, pupils are equal and responsive to light and accommodation. Extraocular movements are intact. NECK: Supple without lymphadenopathy. CHEST: Lungs have decreased breath sounds bilateral bases, otherwise clear to auscultation without wheezes or rales. CARDIOVASCULAR: Regular rhythm and rate. S1 and S2 normal without murmurs, rubs, or gallops. ABDOMEN: Soft, nontender, and nondistended. Positive bowel sounds. No evidence of hepatosplenomegaly. Currently, no rebound or guarding noted. EXTREMITIES: Negative for clubbing, cyanosis, or edema. RECTAL/GENITAL: Refused. NEUROLOGIC: Cranial nerves II through XII are grossly intact without focal deficits. Motor strength is 5/5 bilaterally. Deep tendon reflexes are 2+ plantar. LABORATORY DATA: Sodium 132, potassium 4.3, chloride 95, CO2 20, BUN 64, creatinine 14.08, and glucose 102. CBC is pending. ASSESSMENT: This is a 71-year-old male 1. Cough. 2. Lung cancer. 3. End-stage renal disease. 4. History of polycystic kidney disease. 5. Atrial fibrillation. 6. Pulmonary embolism. 7. History of renal cell adenocarcinoma. 8. Porcine tricuspid valve. TREATMENT: 1. Cough/lung cancer. Pulmonary consultation obtained with Dr. Lane Perez. We will follow recommendation of Dr. Perez. 2. End-stage renal disease. A Nephrology consultation obtained with Dr. Rios. 3. History of renal cell adenocarcinoma/polycystic kidney disease. The patient is status post bilateral nephrectomy. 4. Atrial fibrillation. A Cardiology consultation is pending with Dr. Smith. We will follow recommendations of Cardiology. 5. History of pulmonary embolism. The patient is currently on Coumadin therapy. Jer Pink M.D. DR: HUBER JOB#: [id number] CC:
[2017-07-26 20:00] VITALS: BP 109/76
[2017-07-26] MEDS: Amiodarone 200mg tab ORAL SCH (20:18)
[2017-07-26] MEDS: TraZODone 50mg tab ORAL SCH (20:18)
[2017-07-26] MEDS ORDERED: Epogen (for ESRD on dialysis) SUBQ SCH (21:00)
[2017-07-27] VITALS: BP 81/46
[2017-07-27] MEDS: Norco 5mg/325mg tab ORAL PRN ×2 (03:50→13:01)
[2017-07-27 04:00] VITALS: BP 95/47
[2017-07-27] MEDS: Albuterol 90mcg Inhaler 8gm INH PRN ×4 (04:29→19:43)
[2017-07-27] MEDS: Midodrine 10mg tab ORAL SCH ×5 (05:15→17:09)
[2017-07-27 07:51] LABS: BASOPHILS % (AUTO) 1.3 % (0.0-2.0); EOSINOPHILS % (AUTO) 2.4 % (0.0-3.0); HEMATOCRIT 31.5 % (42.0-52.0); HEMOGLOBIN 9.8 G/DL (14.2-18.0); LYMPHOCYTES % (AUTO) 12.2 % (20.0-45.0); MEAN CORPUSCULAR VOLUME 93 FL (80-99); MONOCYTES % (AUTO) 14.8 % (1.0-10.0); NEUTROPHILS % (AUTO) 69.3 % (45.0-75.0); PLATELET COUNT 114 K/UL (150-450); RED BLOOD COUNT 3.39 M/UL (4.70-6.10); RED CELL DISTRIBUTION WIDTH 19.3 % (11.6-14.8); WHITE BLOOD COUNT 6.1 K/UL (4.8-10.8)
[2017-07-27 08:03] LABS: PHOSPHORUS 3.9 MG/DL (2.5-4.9)
[2017-07-27 08:07] LABS: INR 1.1 (0.9-1.1)
[2017-07-27 08:24] VITALS: BP 89/45
[2017-07-27 09:00] LABS: ANION GAP 12 mmol/L (5-15); BLOOD UREA NITROGEN 50 mg/dL (7-18); CALCIUM 9.1 MG/DL (8.5-10.1); CARBON DIOXIDE 28 MMOL/L (21-32); CHLORIDE 96 MMOL/L (98-107); CREATININE 10.6 MG/DL (0.55-1.30); POTASSIUM 3.5 MMOL/L (3.5-5.1); SODIUM 136 MMOL/L (136-145)
[2017-07-27] MEDS ORDERED: Calcium Acetate 667mg Tab ORAL SCH (09:00)
[2017-07-27] MEDS: Heparin 5000 units/ml inj SUBQ SCH (09:00)
[2017-07-27] MEDS: Docusate 100mg cap ORAL SCH ×2 (09:00→17:09)
[2017-07-27] MEDS ORDERED: Sensipar 30mg Tab ORAL SCH (09:00)
[2017-07-27] MEDS: Renvela 2400 mg pkt NG SCH ×3 (09:04→17:09)
[2017-07-27] MEDS: Meclizine 25mg tab ORAL SCH ×3 (09:04→17:09)
[2017-07-27] MEDS: Atorvastatin 80mg tab ORAL SCH (09:04)
[2017-07-27] MEDS: Amiodarone 200mg tab ORAL SCH ×2 (09:05→20:46)
[2017-07-27] MEDS: Cefepime HCl 1 GM in D5W 55 ML IVPB SCH (09:13)
[2017-07-27 11:46] VITALS: BP 83/42
[2017-07-27 16:00] VITALS: BP 82/40
[2017-07-27] MEDS: Warfarin Sodium 5mg ORAL SCH ×2 (17:09→17:45)
--- NOTE | 2017-07-27 18:05 | Nephrology Progress Note ---
Assessment/Plan Problem List: (1) End-stage renal disease (2) Hypotension (3) Atrial fibrillation Assessment ESRD Anemia h/o GI bleed At fib Plan Plan: adjust Phos binder dosage- Midodrin HD again in am per consultants Subjective ROS Limited/Unobtainable: No Constitutional: Reports: malaise, weakness Objective Objective Last 24 Hour Vital Signs Date Time Temp Pulse Resp B/P (MAP) Pulse Ox O2 Delivery O2 Flow Rate FiO2 07/27/17 16:00 97.3 61 20 82/40 93 Nasal Cannula 2.0 07/27/17 14:00 97.5 07/27/17 11:46 97.5 97 20 83/42 95 Nasal Cannula 07/27/17 08:39 83 18 Nasal Cannula 3.0 07/27/17 08:24 97.3 82 20 89/45 95 Nasal Cannula 2.0 07/27/17 08:15 83 18 96 Nasal Cannula 3.0 07/27/17 08:12 83 18 96 Nasal Cannula 3.0 07/27/17 08:11 Nasal Cannula 3.0 07/27/17 08:10 96 Nasal Cannula 3.0 07/27/17 04:32 90 18 94 07/27/17 04:30 92 20 94 Room Air 21 07/27/17 04:00 97.5 94 18 95/47 98 Nasal Cannula 3.0 07/27/17 00:00 97.5 105 18 81/46 99 Room Air 07/26/17 20:38 Room Air 07/26/17 20:25 87 18 Room Air 21 07/26/17 20:02 87 18 97 07/26/17 20:01 86 18 97 Room Air 2.0 07/26/17 20:00 97.5 101 19 109/76 96 Room Air Intake and Output 07/27/17 07/28/17 19:00 07:00 Intake Total 360 ml Output Total 0 ml Balance 360 ml Intake Oral 360 ml Output Urine Total 0 ml Current Medications Medications (Trade) Dose Ordered Sig/Clotilde Route PRN Reason Start Time Stop Time Status Last Admin Dose Admin Acetaminophen/ Hydrocodone Bitart ([place] 5/325) 1 tab Q6H PRN ORAL For Pain 07/26/17 07:00 08/02/17 06:59 07/27/17 13:01 Albuterol Sulfate (Proventil MDI) 2 puff Q4H PRN INH COUGH/SHORTNESS OF BREATH 07/26/17 07:45 08/25/17 07:44 07/27/17 12:45 Amiodarone HCl (Cordarone) 200 mg EVERY 12 HOURS ORAL 07/26/17 21:00 08/25/17 20:59 07/27/17 09:05 Atorvastatin Calcium (Lipitor) 80 mg DAILY ORAL 07/26/17 09:00 08/25/17 08:59 07/27/17 09:04 Cefepime HCl 1 gm/ Dextrose 55 ml @ 110 mls/hr Q24H IVPB 07/26/17 09:00 08/02/17 08:59 07/27/17 09:13 Cinacalcet (Sensipar) 30 mg DAILY ORAL 07/28/17 09:00 08/27/17 08:59 UNV Docusate Sodium (Colace) 100 mg THREE TIMES A DAY ORAL 07/28/17 09:00 08/27/17 08:59 UNV Docusate Sodium (Colace) 100 mg TWICE A DAY ORAL 07/26/17 13:00 08/25/17 12:59 Epoetin Randolph (Procrit (for ESRD on dialysis)) 10,000 units MON-MON-MON SUBQ 07/26/17 21:00 08/25/17 20:59 07/26/17 20:17 Meclizine HCl (Antivert) 25 mg THREE TIMES A DAY PRN ORAL dizziness 07/27/17 18:15 08/26/17 18:14 UNV Midodrine (Pro-Amatine) 10 mg THREE TIMES A DAY ORAL 07/28/17 09:00 08/27/17 08:59 UNV Non-Formulary Medication (Non-Formulary Med) 1 ea DAILY ORAL 07/26/17 09:00 08/25/17 08:59 UNV Pantoprazole (Protonix) 40 mg DAILY ORAL 07/26/17 09:00 08/25/17 08:59 07/27/17 09:04 Polyethylene Glycol (Miralax) 17 gm DAILY PRN ORAL Constipation 07/26/17 07:00 08/25/17 06:59 Sevelamer Carbonate (Renvela) 2,400 mg THREE TIMES A DAY NG 07/26/17 09:00 08/25/17 08:59 11/2/17 17:09 Trazodone HCl (Desyrel) 50 mg BEDTIME ORAL 07/26/17 21:00 08/25/17 20:59 07/26/17 20:18 Vancomycin HCl (Vanco rx to dose) 1 ea DAILY PRN MISC Per rx protocol 07/26/17 07:00 08/25/17 06:59 Warfarin Sodium (Coumadin per pharmacy) 1 ea DAILYPRN PRN MISC Per rx protocol 07/27/17 16:00 08/26/17 15:59 Warfarin Sodium (Coumadin) 5 mg COUMADIN ORAL 07/27/17 17:00 08/01/17 16:59 Laboratory Tests 07/27/17 07:10: White Blood Count 6.1, Red Blood Count 3.39L, Hemoglobin 9.8L, Hematocrit 31.5L , Mean Corpuscular Volume 93, Mean Corpuscular Hemoglobin 29.0, Mean Corpuscular Hemoglobin Concent 31.2L, Red Cell Distribution Width 19.3H, Platelet Count 114L, Mean Platelet Volume 6.7, Neutrophils (%) (Auto) 69.3, Lymphocytes (%) (Auto) 12.2L, Monocytes (%) (Auto) 14.8H, Eosinophils (%) (Auto ) 2.4, Basophils (%) (Auto) 1.3, Prothrombin Time 11.4, Prothromb Time International Ratio 1.1, Activated Partial Thromboplast Time 32, Sodium Level 136, Potassium Level 3.5, Chloride Level 96L, Carbon Dioxide Level 28, Anion Gap 12, Blood Urea Nitrogen 50H, Creatinine 10.6H, Estimat Glomerular Filtration Rate , Glucose Level 76, Calcium Level 9.1, Phosphorus Level 3.9, Magnesium Level 2.1, Random Vancomycin Level 18.0 Height (Feet): 6 Height (Inches): 2.00 Weight (Pounds): 170 General Appearance: no apparent distress Cardiovascular: arrhythmia Respiratory/Chest: decreased breath sounds Abdomen: soft Objective no other changes SUNNY PRECIADO Jul 27, 2017 18:05
[2017-07-27] MEDS ORDERED: Meclizine 25mg tab ORAL PRN (18:15)
--- NOTE | 2017-07-27 18:16 | Internal Med Progress Note ---
Subjective Date of Service: Jul 27, 2017 Physician Name Diane Deluna Attending Physician Karson Baker MD Current Medications Medications (Trade) Dose Ordered Sig/Clotilde Route PRN Reason Start Time Stop Time Status Last Admin Dose Admin Acetaminophen/ Hydrocodone Bitart ([place] 5/325) 1 tab Q6H PRN ORAL For Pain 07/26/17 07:00 08/02/17 06:59 07/27/17 13:01 Albuterol Sulfate (Proventil MDI) 2 puff Q4H PRN INH COUGH/SHORTNESS OF BREATH 07/26/17 07:45 08/25/17 07:44 07/27/17 12:45 Amiodarone HCl (Cordarone) 200 mg EVERY 12 HOURS ORAL 07/26/17 21:00 08/25/17 20:59 07/27/17 09:05 Atorvastatin Calcium (Lipitor) 80 mg DAILY ORAL 07/26/17 09:00 08/25/17 08:59 07/27/17 09:04 Cefepime HCl 1 gm/ Dextrose 55 ml @ 110 mls/hr Q24H IVPB 07/26/17 09:00 08/02/17 08:59 07/27/17 09:13 Cinacalcet (Sensipar) 30 mg DAILY ORAL 07/28/17 09:00 08/27/17 08:59 Docusate Sodium (Colace) 100 mg THREE TIMES A DAY ORAL 07/28/17 09:00 08/27/17 08:59 Epoetin [place] (Procrit (for ESRD on dialysis)) 10,000 units MON-MON-MON SUBQ 07/26/17 21:00 08/25/17 20:59 07/26/17 20:17 Meclizine HCl (Antivert) 25 mg Q8H PRN ORAL dizziness 07/27/17 18:15 08/26/17 18:14 Midodrine (Pro-Amatine) 10 mg THREE TIMES A DAY ORAL 07/28/17 09:00 08/27/17 08:59 Non-Formulary Medication (Non-Formulary Med) 1 ea DAILY ORAL 07/26/17 09:00 08/25/17 08:59 UNV Pantoprazole (Protonix) 40 mg DAILY ORAL 07/26/17 09:00 08/25/17 08:59 07/27/17 09:04 Polyethylene Glycol (Miralax) 17 gm DAILY PRN ORAL Constipation 07/26/17 07:00 08/25/17 06:59 Sevelamer Carbonate (Renvela) 2,400 mg THREE TIMES A DAY NG 07/26/17 09:00 08/25/17 08:59 07/27/17 17:09 Trazodone HCl (Desyrel) 50 mg BEDTIME ORAL 07/26/17 21:00 08/25/17 20:59 07/26/17 20:18 Vancomycin HCl (Vanco rx to dose) 1 ea DAILY PRN MISC Per rx protocol 07/26/17 07:00 08/25/17 06:59 Warfarin Sodium (Coumadin per pharmacy) 1 ea DAILYPRN PRN MISC Per rx protocol 07/27/17 16:00 08/26/17 15:59 Warfarin Sodium (Coumadin) 5 mg COUMADIN ORAL 07/27/17 17:00 08/01/17 16:59 Allergies: Coded Allergies: IBUPROFEN (Verified Allergy, Unknown, 11/14/11) PENICILLIN G (Verified Allergy, Unknown, 11/14/11) ROS Limited/Unobtainable: No Constitutional: Reports: no symptoms HEENT: Reports: no symptoms Cardiovascular: Reports: no symptoms Respiratory: Reports: shortness of breath Gastrointestinal/Abdominal: Reports: no symptoms Genitourinary: Reports: no symptoms Neurologic/Psychiatric: Reports: no symptoms Subjective 71 YO M admitted with shortness of breath. Cover for Int Varinder-Dr Baker. Objective Last Vital Signs Date Time Temp Pulse Resp B/P (MAP) Pulse Ox O2 Delivery O2 Flow Rate FiO2 07/27/17 16:00 97.3 61 20 82/40 93 Nasal Cannula 2.0 07/27/17 04:30 21 General Appearance: WD/WN, no apparent distress, alert EENT: PERRL/EOMI, normal ENT inspection, TMs normal Neck: non-tender, normal alignment, supple Cardiovascular: normal peripheral pulses, normal rate, regular rhythm, no gallop/murmur, no JVD Respiratory/Chest: respiratory distress, accessory muscle use, crackles/rales, rhonchi - bilaterally, expiratory wheezing Abdomen: normal bowel sounds, non tender, soft, no organomegaly, no mass Extremities: normal range of motion Neurologic: manager reading II-XII grossly normal, no motor/sensory deficits Laboratory Tests Test 07/27/17 07:10 White Blood Count 6.1 K/UL (4.8-10.8) Red Blood Count 3.39 M/UL (4.70-6.10) L Hemoglobin 9.8 G/DL (14.2-18.0) L Hematocrit 31.5 % (42.0-52.0) L Mean Corpuscular Volume 93 FL (80-99) Mean Corpuscular Hemoglobin 29.0 PG (27.0-31.0) Mean Corpuscular Hemoglobin Concent 31.2 G/DL (32.0-36.0) L Red Cell Distribution Width 19.3 % (11.6-14.8) H Platelet Count 114 K/UL (150-450) L Mean Platelet Volume 6.7 FL (6.5-10.1) Neutrophils (%) (Auto) 69.3 % (45.0-75.0) Lymphocytes (%) (Auto) 12.2 % (20.0-45.0) L Monocytes (%) (Auto) 14.8 % (1.0-10.0) H Eosinophils (%) (Auto) 2.4 % (0.0-3.0) Basophils (%) (Auto) 1.3 % (0.0-2.0) Prothrombin Time 11.4 SEC (9.30-11.50) Prothromb Time International Ratio 1.1 (0.9-1.1) Activated Partial Thromboplast Time 32 SEC (23-33) Sodium Level 136 MMOL/L (136-145) Potassium Level 3.5 MMOL/L (3.5-5.1) Chloride Level 96 MMOL/L (98-107) L Carbon Dioxide Level 28 MMOL/L (21-32) Anion Gap 12 mmol/L (5-15) Blood Urea Nitrogen 50 mg/dL (7-18) H Creatinine 10.6 MG/DL (0.55-1.30) H Estimat Glomerular Filtration Rate mL/min (>60) Glucose Level 76 MG/DL (74-106) Calcium Level 9.1 MG/DL (8.5-10.1) Phosphorus Level 3.9 MG/DL (2.5-4.9) Magnesium Level 2.1 MG/DL (1.8-2.4) Random Vancomycin Level 18.0 ug/mL Intake and Output 07/27/17 07/28/17 19:00 07:00 Intake Total 360 ml Output Total 0 ml Balance 360 ml Intake Oral 360 ml Output Urine Total 0 ml Assessment/Plan Problem List: (1) Pleural effusion on right (2) ESRD (end stage renal disease) on dialysis Assessment & Plan: Hemodialysis on Mon07/28/17-see nephrology note. (3) CHF (congestive heart failure) Assessment & Plan: Await cardiology consult-Dr Smith (4) Tricuspid valve replaced (5) Pneumonia Assessment & Plan: Cont cefepime and vanco. See pulmonary note. (6) Atrial fibrillation (7) Lung cancer Assessment & Plan: await records from [facility] Status: not improved DIANE DELUNA Jul 27, 2017 18:16
[2017-07-27] MEDS ORDERED: Promethazine/Codeine 5ml UD ORAL PRN (18:30)
--- NOTE | 2017-07-27 18:32 | Pulmonology Progress Note ---
Assessment/Plan Problems: (1) Lung cancer (2) Pleural effusion on right (3) ESRD (end stage renal disease) on dialysis (4) Atrial fibrillation Assessment/Plan symptomatic treatment since pleural effusion is very common in ESRF patients, since there is no fever or leukocytosis. I wouldn't do any thoracentesis for now, Unless pt becomes symptomatic. Subjective ROS Limited/Unobtainable: No Interval Events: less cough Constitutional: Reports: no symptoms HEENT: Repors: no symptoms Allergies: Coded Allergies: IBUPROFEN (Verified Allergy, Unknown, 11/14/11) PENICILLIN G (Verified Allergy, Unknown, 11/14/11) Objective Last 24 Hour Vital Signs Date Time Temp Pulse Resp B/P (MAP) Pulse Ox O2 Delivery O2 Flow Rate FiO2 07/27/17 16:00 97.3 61 20 82/40 93 Nasal Cannula 2.0 07/27/17 14:00 97.5 07/27/17 11:46 97.5 97 20 83/42 95 Nasal Cannula 07/27/17 08:39 83 18 Nasal Cannula 3.0 07/27/17 08:24 97.3 82 20 89/45 95 Nasal Cannula 2.0 07/27/17 08:15 83 18 96 Nasal Cannula 3.0 07/27/17 08:12 83 18 96 Nasal Cannula 3.0 07/27/17 08:11 Nasal Cannula 3.0 07/27/17 08:10 96 Nasal Cannula 3.0 07/27/17 04:32 90 18 94 07/27/17 04:30 92 20 94 Room Air 21 07/27/17 04:00 97.5 94 18 95/47 98 Nasal Cannula 3.0 07/27/17 00:00 97.5 105 18 81/46 99 Room Air 07/26/17 20:38 Room Air 07/26/17 20:25 87 18 Room Air 21 07/26/17 20:02 87 18 97 07/26/17 20:01 86 18 97 Room Air 2.0 21 07/26/17 20:00 97.5 101 19 109/76 96 Room Air Intake and Output 07/27/17 07/28/17 19:00 07:00 Intake Total 360 ml Output Total 0 ml Balance 360 ml Intake Oral 360 ml Output Urine Total 0 ml General Appearance: WD/WN HEENT: normocephalic, atraumatic Respiratory/Chest: chest wall non-tender, lungs clear Cardiovascular: normal peripheral pulses, normal rate Abdomen: normal bowel sounds, soft, non tender Extremities: no cyanosis Skin: no rash Neurologic/Psychiatric: no motor/sensory deficits Laboratory Tests 07/27/17 07:10: White Blood Count 6.1, Red Blood Count 3.39L, Hemoglobin 9.8L, Hematocrit 31.5L , Mean Corpuscular Volume 93, Mean Corpuscular Hemoglobin 29.0, Mean Corpuscular Hemoglobin Concent 31.2L, Red Cell Distribution Width 19.3H, Platelet Count 114L, Mean Platelet Volume 6.7, Neutrophils (%) (Auto) 69.3, Lymphocytes (%) (Auto) 12.2L, Monocytes (%) (Auto) 14.8H, Eosinophils (%) (Auto ) 2.4, Basophils (%) (Auto) 1.3, Prothrombin Time 11.4, Prothromb Time International Ratio 1.1, Activated Partial Thromboplast Time 32, Sodium Level 136, Potassium Level 3.5, Chloride Level 96L, Carbon Dioxide Level 28, Anion Gap 12, Blood Urea Nitrogen 50H, Creatinine 10.6H, Estimat Glomerular Filtration Rate , Glucose Level 76, Calcium Level 9.1, Phosphorus Level 3.9, Magnesium Level 2.1, Random Vancomycin Level 18.0 Current Medications Medications (Trade) Dose Ordered Sig/Clotilde Route PRN Reason Start Time Stop Time Status Last Admin Dose Admin Acetaminophen/ Hydrocodone Bitart ([place] 5/325) 1 tab Q6H PRN ORAL For Pain 07/26/17 07:00 08/02/17 06:59 07/27/17 13:01 Albuterol Sulfate (Proventil MDI) 2 puff Q4H PRN INH COUGH/SHORTNESS OF BREATH 07/26/17 07:45 08/25/17 07:44 07/27/17 12:45 Amiodarone HCl (Cordarone) 200 mg EVERY 12 HOURS ORAL 07/26/17 21:00 08/25/17 20:59 07/27/17 09:05 Atorvastatin Calcium (Lipitor) 80 mg DAILY ORAL 07/26/17 09:00 08/25/17 08:59 07/27/17 09:04 Cefepime HCl 1 gm/ Dextrose 55 ml @ 110 mls/hr Q24H IVPB 07/26/17 09:00 08/02/17 08:59 07/27/17 09:13 Cinacalcet (Sensipar) 30 mg DAILY ORAL 07/28/17 09:00 08/27/17 08:59 Docusate Sodium (Colace) 100 mg THREE TIMES A DAY ORAL 07/28/17 09:00 08/27/17 08:59 Epoetin [place] (Procrit (for ESRD on dialysis)) 10,000 units MON-MON-MON SUBQ 07/26/17 21:00 08/25/17 20:59 07/26/17 20:17 Meclizine HCl (Antivert) 25 mg Q8H PRN ORAL dizziness 07/27/17 18:15 08/26/17 18:14 Midodrine (Pro-Amatine) 10 mg THREE TIMES A DAY ORAL 07/28/17 09:00 08/27/17 08:59 Non-Formulary Medication (Non-Formulary Med) 1 ea DAILY ORAL 07/26/17 09:00 08/25/17 08:59 UNV Pantoprazole (Protonix) 40 mg DAILY ORAL 07/26/17 09:00 08/25/17 08:59 07/27/17 09:04 Polyethylene Glycol (Miralax) 17 gm DAILY PRN ORAL Constipation 07/26/17 07:00 08/25/17 06:59 Sevelamer Carbonate (Renvela) 2,400 mg THREE TIMES A DAY NG 07/26/17 09:00 08/25/17 08:59 07/27/17 17:09 Trazodone HCl (Desyrel) 50 mg BEDTIME ORAL 07/26/17 21:00 08/25/17 20:59 07/26/17 20:18 Vancomycin HCl (Vanco rx to dose) 1 ea DAILY PRN MISC Per rx protocol 07/26/17 07:00 08/25/17 06:59 Warfarin Sodium (Coumadin per pharmacy) 1 ea DAILYPRN PRN MISC Per rx protocol 07/27/17 16:00 08/26/17 15:59 Warfarin Sodium (Coumadin) 5 mg COUMADIN ORAL 07/27/17 17:00 08/01/17 16:59 THEA WEI Jul 27, 2017 18:32
[2017-07-27 20:00] VITALS: BP 76/42
[2017-07-27] MEDS: TraZODone 50mg tab ORAL SCH (20:46)
[2017-07-28] VITALS: BP 95/59
[2017-07-28] MEDS: Norco 5mg/325mg tab ORAL PRN (02:54)
[2017-07-28] MEDS: Albuterol 90mcg Inhaler 8gm INH PRN ×4 (03:16→15:26)
[2017-07-28 04:00] VITALS: BP 84/50
[2017-07-28 06:56] LABS: BASOPHILS % (AUTO) 1.3 % (0.0-2.0); EOSINOPHILS % (AUTO) 4.5 % (0.0-3.0); HEMATOCRIT 31.3 % (42.0-52.0); HEMOGLOBIN 9.6 G/DL (14.2-18.0); INR 1.1 (0.9-1.1); LYMPHOCYTES % (AUTO) 14.2 % (20.0-45.0); MEAN CORPUSCULAR VOLUME 93 FL (80-99); MONOCYTES % (AUTO) 13.8 % (1.0-10.0); NEUTROPHILS % (AUTO) 66.2 % (45.0-75.0); PLATELET COUNT 116 K/UL (150-450); RED BLOOD COUNT 3.38 M/UL (4.70-6.10); RED CELL DISTRIBUTION WIDTH 19.8 % (11.6-14.8); WHITE BLOOD COUNT 5.7 K/UL (4.8-10.8)
[2017-07-28 07:20] LABS: ANION GAP 13 mmol/L (5-15); BLOOD UREA NITROGEN 58 mg/dL (7-18); CALCIUM 8.8 MG/DL (8.5-10.1); CARBON DIOXIDE 27 MMOL/L (21-32); CHLORIDE 94 MMOL/L (98-107); CREATININE 11.8 MG/DL (0.55-1.30); POTASSIUM 3.5 MMOL/L (3.5-5.1); SODIUM 134 MMOL/L (136-145)
[2017-07-28 08:00] VITALS: BP 89/67
--- NOTE | 2017-07-28 08:32 | Pulmonology Progress Note ---
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 HTN chronic diastolic CHF Hx of PE A fib ESRD on HD anemia of chronic ( likely renal) disease hx of chronic intermittent GI bleeding PLAN OF CARE transfer to tele serial troponin get ECG ECHO with pEF 55-60% and RVSP of 64 c/w severe pulmonary HTN cardio eval first elevated troponin may be due to renal failure , will check serial O2 HHN keep sat above 92% fup no change sputum cx negative empiric abx Patient f/up with [facility] radiation oncology venous Duplex BLE negative Resume Coumadin to keep INR in therapeutic range 2-3 rate control, continue Amiodarone patient with AMS at [place] vs psych disorder CT head no acute IC pathology, ammonia WNL serum ETOH negative in [place] Haldol and Ativan given with improvement psych eval - per PMD discretion Blood pressure on the low side started on Midodrine as per nephro HD as per nephro, monitor renal parameters, lytes, replace as needed GI prophylaxis monitor HH, anemia w/up c/w anemia of chronic, likely renal disease high ferritin, started on EPO, monitor counts and transfuse as needed check CEA stool OB -negative, case discussed and evaluated by supervising physician Subjective Allergies: Coded Allergies: IBUPROFEN (Verified Allergy, Unknown, 11/14/11) PENICILLIN G (Verified Allergy, Unknown, 11/14/11) Subjective reports SOB, but pulse oximetry stable on RA reports chest pain intermittent no dizziness, no palpitations + generalized weakness Objective Last 24 Hour Vital Signs Date Time Temp Pulse Resp B/P (MAP) Pulse Ox O2 Delivery O2 Flow Rate FiO2 07/28/17 07:32 96 Nasal Cannula 3.0 32 07/28/17 07:32 Nasal Cannula 3.0 32 07/28/17 04:00 97.7 76 20 84/50 95 Nasal Cannula 2.0 07/28/17 03:18 83 20 96 Room Air 07/28/17 03:16 80 18 95 Room Air 07/28/17 00:00 97.7 72 20 95/59 95 Nasal Cannula 2.0 07/27/17 20:00 97.4 51 18 76/42 86 Nasal Cannula 2.0 07/27/17 19:44 81 20 98 Nasal Cannula 3.0 32 07/27/17 19:43 77 18 97 Nasal Cannula 3.0 32 07/27/17 19:43 78 18 Nasal Cannula 3.0 32 07/27/17 19:42 97 Nasal Cannula 3.0 32 07/27/17 19:42 Nasal Cannula 3.0 32 07/27/17 16:00 97.3 61 20 82/40 93 Nasal Cannula 2.0 07/27/17 14:00 97.5 07/27/17 11:46 97.5 97 20 83/42 95 Nasal Cannula 07/27/17 08:39 83 18 Nasal Cannula 3.0 General Appearance: no acute distress, other - thin AA male in NAD HEENT: normocephalic, atraumatic, anicteric Respiratory/Chest: decreased breath sounds - at bases Cardiovascular: normal rate, regular rhythm Abdomen: normal bowel sounds, soft, non tender Extremities: no edema, pedal pulses normal Neurologic/Psychiatric: no motor/sensory deficits, alert, responsive Musculoskeletal: normal muscle bulk Microbiology Date/Time Source Procedure Growth Status 07/26/17 10:40 Rectum VRE Culture - Final NO VANCOMYCIN RESISTANT ENTEROCOCCUS ... Complete Laboratory Tests 07/28/17 06:00: White Blood Count 5.7, Red Blood Count 3.38L, Hemoglobin 9.6L, Hematocrit 31.3L , Mean Corpuscular Volume 93, Mean Corpuscular Hemoglobin 28.5, Mean Corpuscular Hemoglobin Concent 30.7L, Red Cell Distribution Width 19.8H, Platelet Count 116L, Mean Platelet Volume 6.9, Neutrophils (%) (Auto) 66.2, Lymphocytes (%) (Auto) 14.2L, Monocytes (%) (Auto) 13.8H, Eosinophils (%) (Auto ) 4.5H, Basophils (%) (Auto) 1.3, Prothrombin Time 11.6H, Prothromb Time International Ratio 1.1, Sodium Level 134L, Potassium Level 3.5, Chloride Level 94L, Carbon Dioxide Level 27, Anion Gap 13, Blood Urea Nitrogen 58H, Creatinine 11.8H, Estimat Glomerular Filtration Rate , Glucose Level 105, Calcium Level 8.8 , Troponin I 1.497H, Pro-B-Type Natriuretic Peptide [id number] Current Medications Medications (Trade) Dose Ordered Sig/Clotilde Route PRN Reason Start Time Stop Time Status Last Admin Dose Admin Acetaminophen/ Hydrocodone Bitart ([place] 5/325) 1 tab Q6H PRN ORAL For Pain 07/26/17 07:00 08/02/17 06:59 07/28/17 02:54 Albuterol Sulfate (Proventil MDI) 2 puff Q4H PRN INH COUGH/SHORTNESS OF BREATH 07/26/17 07:45 08/25/17 07:44 07/28/17 07:32 Amiodarone HCl (Cordarone) 200 mg EVERY 12 HOURS ORAL 07/26/17 21:00 08/25/17 20:59 07/27/17 20:46 Atorvastatin Calcium (Lipitor) 80 mg DAILY ORAL 07/26/17 09:00 08/25/17 08:59 07/27/17 09:04 Cefepime HCl 1 gm/ Dextrose 55 ml @ 110 mls/hr Q24H IVPB 07/26/17 09:00 08/02/17 08:59 07/27/17 09:13 Cinacalcet (Sensipar) 30 mg DAILY ORAL 07/28/17 09:00 08/27/17 08:59 Docusate Sodium (Colace) 100 mg THREE TIMES A DAY ORAL 07/28/17 09:00 08/27/17 08:59 Epoetin [place] (Procrit (for ESRD on dialysis)) 10,000 units MON-MON-MON SUBQ 07/26/17 21:00 08/25/17 20:59 07/26/17 20:17 Meclizine HCl (Antivert) 25 mg Q8H PRN ORAL dizziness 07/27/17 18:15 08/26/17 18:14 Midodrine (Pro-Amatine) 10 mg THREE TIMES A DAY ORAL 07/28/17 09:00 08/27/17 08:59 Non-Formulary Medication (Non-Formulary Med) 1 ea DAILY ORAL 07/26/17 09:00 08/25/17 08:59 UNV Pantoprazole (Protonix) 40 mg DAILY ORAL 07/26/17 09:00 08/25/17 08:59 07/27/17 09:04 Polyethylene Glycol (Miralax) 17 gm DAILY PRN ORAL Constipation 07/26/17 07:00 08/25/17 06:59 Promethazine HCl/ Codeine (Phenergan with Codeine) 5 ml Q4H PRN ORAL For Cough 07/27/17 18:30 08/26/17 18:29 Sevelamer Carbonate (Renvela) 2,400 mg THREE TIMES A DAY NG 07/26/17 09:00 08/25/17 08:59 07/27/17 17:09 Trazodone HCl (Desyrel) 50 mg BEDTIME ORAL 07/26/17 21:00 08/25/17 20:59 07/27/17 20:46 Vancomycin HCl (Vanco rx to dose) 1 ea DAILY PRN MISC Per rx protocol 07/26/17 07:00 08/25/17 06:59 Warfarin Sodium (Coumadin per pharmacy) 1 ea DAILYPRN PRN MISC Per rx protocol 07/27/17 16:00 08/26/17 15:59 Warfarin Sodium (Coumadin) 5 mg COUMADIN ORAL 07/27/17 17:00 08/01/17 16:59 Ricardo (Rigo)Eliana NP Jul 28, 2017 08:32
--- NOTE | 2017-07-28 08:32 | Pulmonology Progress Note ---
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 HTN chronic diastolic CHF Hx of PE A fib ESRD on HD anemia of chronic ( likely renal) disease hx of chronic intermittent GI bleeding PLAN OF CARE transfer to tele serial troponin get ECG ECHO with pEF 55-60% and RVSP of 64 c/w severe pulmonary HTN cardio eval first elevated troponin may be due to renal failure , will check serial O2 HHN keep sat above 92% fup no change sputum cx negative empiric abx Patient f/up with [facility] radiation oncology venous Duplex BLE negative Resume Coumadin to keep INR in therapeutic range 2-3 rate control, continue Amiodarone patient with AMS at [place] vs psych disorder CT head no acute IC pathology, ammonia WNL serum ETOH negative in [place] Haldol and Ativan given with improvement psych eval - per PMD discretion Blood pressure on the low side started on Midodrine as per nephro HD as per nephro, monitor renal parameters, lytes, replace as needed GI prophylaxis monitor HH, anemia w/up c/w anemia of chronic, likely renal disease high ferritin, started on EPO, monitor counts and transfuse as needed check CEA stool OB -negative, case discussed and evaluated by supervising physician Subjective Allergies: Coded Allergies: IBUPROFEN (Verified Allergy, Unknown, 11/14/11) PENICILLIN G (Verified Allergy, Unknown, 11/14/11) Subjective reports SOB, but pulse oximetry stable on RA reports chest pain intermittent no dizziness, no palpitations + generalized weakness Objective Last 24 Hour Vital Signs Date Time Temp Pulse Resp B/P (MAP) Pulse Ox O2 Delivery O2 Flow Rate FiO2 07/28/17 07:32 96 Nasal Cannula 3.0 32 07/28/17 07:32 Nasal Cannula 3.0 32 07/28/17 04:00 97.7 76 20 84/50 95 Nasal Cannula 2.0 07/28/17 03:18 83 20 96 Room Air 07/28/17 03:16 80 18 95 Room Air 07/28/17 00:00 97.7 72 20 95/59 95 Nasal Cannula 2.0 07/27/17 20:00 97.4 51 18 76/42 86 Nasal Cannula 2.0 07/27/17 19:44 81 20 98 Nasal Cannula 3.0 32 07/27/17 19:43 77 18 97 Nasal Cannula 3.0 32 07/27/17 19:43 78 18 Nasal Cannula 3.0 32 07/27/17 19:42 97 Nasal Cannula 3.0 32 07/27/17 19:42 Nasal Cannula 3.0 32 07/27/17 16:00 97.3 61 20 82/40 93 Nasal Cannula 2.0 07/27/17 14:00 97.5 07/27/17 11:46 97.5 97 20 83/42 95 Nasal Cannula 07/27/17 08:39 83 18 Nasal Cannula 3.0 General Appearance: no acute distress, other - thin AA male in NAD HEENT: normocephalic, atraumatic, anicteric Respiratory/Chest: decreased breath sounds - at bases Cardiovascular: normal rate, regular rhythm Abdomen: normal bowel sounds, soft, non tender Extremities: no edema, pedal pulses normal Neurologic/Psychiatric: no motor/sensory deficits, alert, responsive Musculoskeletal: normal muscle bulk Microbiology Date/Time Source Procedure Growth Status 07/26/17 10:40 Rectum VRE Culture - Final NO VANCOMYCIN RESISTANT ENTEROCOCCUS ... Complete Laboratory Tests 07/28/17 06:00: White Blood Count 5.7, Red Blood Count 3.38L, Hemoglobin 9.6L, Hematocrit 31.3L , Mean Corpuscular Volume 93, Mean Corpuscular Hemoglobin 28.5, Mean Corpuscular Hemoglobin Concent 30.7L, Red Cell Distribution Width 19.8H, Platelet Count 116L, Mean Platelet Volume 6.9, Neutrophils (%) (Auto) 66.2, Lymphocytes (%) (Auto) 14.2L, Monocytes (%) (Auto) 13.8H, Eosinophils (%) (Auto ) 4.5H, Basophils (%) (Auto) 1.3, Prothrombin Time 11.6H, Prothromb Time International Ratio 1.1, Sodium Level 134L, Potassium Level 3.5, Chloride Level 94L, Carbon Dioxide Level 27, Anion Gap 13, Blood Urea Nitrogen 58H, Creatinine 11.8H, Estimat Glomerular Filtration Rate , Glucose Level 105, Calcium Level 8.8 , Troponin I 1.497H, Pro-B-Type Natriuretic Peptide [id number] Current Medications Medications (Trade) Dose Ordered Sig/Clotilde Route PRN Reason Start Time Stop Time Status Last Admin Dose Admin Acetaminophen/ Hydrocodone Bitart ([place] 5/325) 1 tab Q6H PRN ORAL For Pain 07/26/17 07:00 08/02/17 06:59 07/28/17 02:54 Albuterol Sulfate (Proventil MDI) 2 puff Q4H PRN INH COUGH/SHORTNESS OF BREATH 07/26/17 07:45 08/25/17 07:44 07/28/17 07:32 Amiodarone HCl (Cordarone) 200 mg EVERY 12 HOURS ORAL 07/26/17 21:00 08/25/17 20:59 07/27/17 20:46 Atorvastatin Calcium (Lipitor) 80 mg DAILY ORAL 07/26/17 09:00 08/25/17 08:59 07/27/17 09:04 Cefepime HCl 1 gm/ Dextrose 55 ml @ 110 mls/hr Q24H IVPB 07/26/17 09:00 08/02/17 08:59 07/27/17 09:13 Cinacalcet (Sensipar) 30 mg DAILY ORAL 07/28/17 09:00 08/27/17 08:59 Docusate Sodium (Colace) 100 mg THREE TIMES A DAY ORAL 07/28/17 09:00 08/27/17 08:59 Epoetin [place] (Procrit (for ESRD on dialysis)) 10,000 units MON-MON-MON SUBQ 07/26/17 21:00 08/25/17 20:59 07/26/17 20:17 Meclizine HCl (Antivert) 25 mg Q8H PRN ORAL dizziness 07/27/17 18:15 08/26/17 18:14 Midodrine (Pro-Amatine) 10 mg THREE TIMES A DAY ORAL 07/28/17 09:00 08/27/17 08:59 Non-Formulary Medication (Non-Formulary Med) 1 ea DAILY ORAL 07/26/17 09:00 08/25/17 08:59 UNV Pantoprazole (Protonix) 40 mg DAILY ORAL 07/26/17 09:00 08/25/17 08:59 07/27/17 09:04 Polyethylene Glycol (Miralax) 17 gm DAILY PRN ORAL Constipation 07/26/17 07:00 08/25/17 06:59 Promethazine HCl/ Codeine (Phenergan with Codeine) 5 ml Q4H PRN ORAL For Cough 07/27/17 18:30 08/26/17 18:29 Sevelamer Carbonate (Renvela) 2,400 mg THREE TIMES A DAY NG 07/26/17 09:00 08/25/17 08:59 07/27/17 17:09 Trazodone HCl (Desyrel) 50 mg BEDTIME ORAL 07/26/17 21:00 08/25/17 20:59 07/27/17 20:46 Vancomycin HCl (Vanco rx to dose) 1 ea DAILY PRN MISC Per rx protocol 07/26/17 07:00 08/25/17 06:59 Warfarin Sodium (Coumadin per pharmacy) 1 ea DAILYPRN PRN MISC Per rx protocol 07/27/17 16:00 08/26/17 15:59 Warfarin Sodium (Coumadin) 5 mg COUMADIN ORAL 07/27/17 17:00 08/01/17 16:59 Ricardo (Rigo)Eliana NP Jul 28, 2017 08:32
[2017-07-28] MEDS: Amiodarone 200mg tab ORAL SCH (09:00)
[2017-07-28] MEDS: Docusate 100mg cap ORAL SCH ×3 (09:00→18:00)
[2017-07-28] MEDS: Atorvastatin 80mg tab ORAL SCH (09:00)
[2017-07-28] MEDS ORDERED: Sensipar 30mg Tab ORAL SCH (09:00)
[2017-07-28] MEDS: Cefepime HCl 1 GM in D5W 55 ML IVPB SCH (09:00)
[2017-07-28] MEDS: Renvela 2400 mg pkt NG SCH ×3 (09:00→18:00)
[2017-07-28] MEDS: Midodrine 10mg tab ORAL SCH ×3 (09:00→18:00)
--- NOTE | 2017-07-28 10:40 | Diagnostic Imaging Report ---
Indication: SOB Technique: One view of the chest Comparison: 07/26/2017 Findings: Bilateral interstitial and alveolar parenchymal disease is again demonstrated, slightly increased diffusely from the previous exam. The heart remains enlarged. There are median sternotomy sutures again demonstrated. Pleural spaces are clear. Left arm vascular stent is evident Impression: Slight increased bilateral interstitial and alveolar infiltrates versus edema, over 2 days
--- NOTE | 2017-07-28 11:40 | Nephrology Progress Note ---
Assessment/Plan Problem List: (1) End-stage renal disease (2) Hypotension (3) Atrial fibrillation (4) Troponin level elevated Assessment ESRD Anemia h/o GI bleed At fib Plan Plan: adjust Phos binder dosage- Midodrin HD today- per consultants / cardiology Subjective ROS Limited/Unobtainable: No Constitutional: Reports: malaise Objective Objective Last 24 Hour Vital Signs Date Time Temp Pulse Resp B/P (MAP) Pulse Ox O2 Delivery O2 Flow Rate FiO2 07/28/17 11:00 75 16 96 Room Air 21 07/28/17 11:00 75 16 96 Room Air 07/28/17 08:00 98.0 96 18 89/67 96 Room Air 07/28/17 07:32 96 Nasal Cannula 3.0 32 07/28/17 07:32 Nasal Cannula 3.0 32 07/28/17 04:00 97.7 76 20 84/50 95 Nasal Cannula 2.0 07/28/17 03:18 83 20 96 Room Air 07/28/17 03:16 80 18 95 Room Air 07/28/17 00:00 97.7 72 20 95/59 95 Nasal Cannula 2.0 07/27/17 20:00 97.4 51 18 76/42 86 Nasal Cannula 2.0 07/27/17 19:44 81 20 98 Nasal Cannula 3.0 32 07/27/17 19:43 77 18 97 Nasal Cannula 3.0 32 07/27/17 19:43 78 18 Nasal Cannula 3.0 32 07/27/17 19:42 97 Nasal Cannula 3.0 32 07/27/17 19:42 Nasal Cannula 3.0 07/27/17 16:00 97.3 61 20 82/40 93 Nasal Cannula 2.0 07/27/17 14:00 97.5 07/27/17 11:46 97.5 97 20 83/42 95 Nasal Cannula Laboratory Tests 07/28/17 06:00: White Blood Count 5.7, Red Blood Count 3.38L, Hemoglobin 9.6L, Hematocrit 31.3L , Mean Corpuscular Volume 93, Mean Corpuscular Hemoglobin 28.5, Mean Corpuscular Hemoglobin Concent 30.7L, Red Cell Distribution Width 19.8H, Platelet Count 116L, Mean Platelet Volume 6.9, Neutrophils (%) (Auto) 66.2, Lymphocytes (%) (Auto) 14.2L, Monocytes (%) (Auto) 13.8H, Eosinophils (%) (Auto ) 4.5H, Basophils (%) (Auto) 1.3, Prothrombin Time 11.6H, Prothromb Time International Ratio 1.1, Sodium Level 134L, Potassium Level 3.5, Chloride Level 94L, Carbon Dioxide Level 27, Anion Gap 13, Blood Urea Nitrogen 58H, Creatinine 11.8H, Estimat Glomerular Filtration Rate , Glucose Level 105, Calcium Level 8.8 , Troponin I 1.487H, Pro-B-Type Natriuretic Peptide 63384T Height (Feet): 6 Height (Inches): 2.00 Weight (Pounds): 170 General Appearance: no apparent distress Cardiovascular: tachycardia Respiratory/Chest: decreased breath sounds Objective no other changes SUNNY PRECIADO Jul 28, 2017 11:40
--- NOTE | 2017-07-28 11:51 | Cardiac Electrophysiology PN ---
Subjective Subjective [id number] Objective Last 24 Hour Vital Signs Date Time Temp Pulse Resp B/P (MAP) Pulse Ox O2 Delivery O2 Flow Rate FiO2 07/28/17 11:00 75 16 96 Room Air 21 07/28/17 11:00 75 16 96 Room Air 07/28/17 08:00 98.0 96 18 89/67 96 Room Air 07/28/17 07:32 96 Nasal Cannula 3.0 32 07/28/17 07:32 Nasal Cannula 3.0 32 07/28/17 04:00 97.7 76 20 84/50 95 Nasal Cannula 2.0 07/28/17 03:18 83 20 96 Room Air 07/28/17 03:16 80 18 95 Room Air 07/28/17 00:00 97.7 72 20 95/59 95 Nasal Cannula 2.0 07/27/17 20:00 97.4 51 18 76/42 86 Nasal Cannula 2.0 07/27/17 19:44 81 20 98 Nasal Cannula 3.0 32 07/27/17 19:43 77 18 97 Nasal Cannula 3.0 07/27/17 19:43 78 18 Nasal Cannula 3.0 32 07/27/17 19:42 97 Nasal Cannula 3.0 32 07/27/17 19:42 Nasal Cannula 3.0 32 07/27/17 16:00 97.3 61 20 82/40 93 Nasal Cannula 2.0 07/27/17 14:00 97.5 Laboratory Tests Test 07/28/17 06:00 07/28/17 08:52 White Blood Count 5.7 K/UL (4.8-10.8) Red Blood Count 3.38 M/UL (4.70-6.10) L Hemoglobin 9.6 G/DL (14.2-18.0) L Hematocrit 31.3 % (42.0-52.0) L Mean Corpuscular Volume 93 FL (80-99) Mean Corpuscular Hemoglobin 28.5 PG (27.0-31.0) Mean Corpuscular Hemoglobin Concent 30.7 G/DL (32.0-36.0) L Red Cell Distribution Width 19.8 % (11.6-14.8) H Platelet Count 116 K/UL (150-450) L Mean Platelet Volume 6.9 FL (6.5-10.1) Neutrophils (%) (Auto) 66.2 % (45.0-75.0) Lymphocytes (%) (Auto) 14.2 % (20.0-45.0) L Monocytes (%) (Auto) 13.8 % (1.0-10.0) H Eosinophils (%) (Auto) 4.5 % (0.0-3.0) H Basophils (%) (Auto) 1.3 % (0.0-2.0) Prothrombin Time 11.6 SEC (9.30-11.50) H Prothromb Time International Ratio 1.1 (0.9-1.1) Sodium Level 134 MMOL/L (136-145) L Potassium Level 3.5 MMOL/L (3.5-5.1) Chloride Level 94 MMOL/L (98-107) L Carbon Dioxide Level 27 MMOL/L (21-32) Anion Gap 13 mmol/L (5-15) Blood Urea Nitrogen 58 mg/dL (7-18) H Creatinine 11.8 MG/DL (0.55-1.30) H Estimat Glomerular Filtration Rate mL/min (>60) Glucose Level 105 MG/DL (74-106) Calcium Level 8.8 MG/DL (8.5-10.1) Troponin I 1.487 ng/mL (0.000-0.056) Pro-B-Type Natriuretic Peptide 52512 pg/mL (0-125) H Stool Occult Blood Pending Microbiology Date/Time Source Procedure Growth Status 07/26/17 10:40 Nasal Nares MRSA Culture - Final NO METHICILLIN RESISTANT STAPH AUREUS... Complete 07/26/17 10:40 Rectum VRE Culture - Final NO VANCOMYCIN RESISTANT ENTEROCOCCUS ... Complete ESTUARDO REMY Jul 28, 2017 11:51
--- NOTE | 2017-07-28 12:28 | Diagnostic Imaging Report ---
APPROVED REPORT CPT Code: 67506 Present Symptoms Shortness of breath BILATERAL: Imaging reveals a patent deep venous system bilaterally. There is no evidence of thrombus within the femoral, popliteal or tibial segments. The greater saphenous veins are also within normal limits. Doppler indicates normal spontaneous flow within these segments. Incidental finding: Left proximal common femoral artery mild to moderate calcification.
--- NOTE | 2017-07-28 12:28 | Diagnostic Imaging Report ---
APPROVED REPORT CPT Code: 65856 Present Symptoms Shortness of breath BILATERAL: Imaging reveals a patent deep venous system bilaterally. There is no evidence of thrombus within the femoral, popliteal or tibial segments. The greater saphenous veins are also within normal limits. Doppler indicates normal spontaneous flow within these segments. Incidental finding: Left proximal common femoral artery mild to moderate calcification.
--- NOTE | 2017-07-28 12:28 | Diagnostic Imaging Report ---
APPROVED REPORT CPT Code: 74621 Present Symptoms Shortness of breath BILATERAL: Imaging reveals a patent deep venous system bilaterally. There is no evidence of thrombus within the femoral, popliteal or tibial segments. The greater saphenous veins are also within normal limits. Doppler indicates normal spontaneous flow within these segments. Incidental finding: Left proximal common femoral artery mild to moderate calcification.
[2017-07-28] MEDS ORDERED: Vancomycin 1gm in D5W 275ml IVPB ONE (15:30)
[2017-07-28 16:19] VITALS: BP 100/60
[2017-07-28] MEDS: Warfarin Sodium 5mg ORAL SCH (16:38)
[2017-07-28] MEDS ORDERED: Meclizine 25mg tab ORAL PRN (18:15)
[2017-07-28] MEDS ORDERED: Promethazine/Codeine 5ml UD ORAL PRN (18:30)
[2017-07-28] MEDS ORDERED: Miralax 17gm pkt ORAL PRN (19:00)
[2017-07-28] MEDS ORDERED: Norco 5mg/325mg tab ORAL PRN (19:00)
[2017-07-28] MEDS ORDERED: Albuterol 90mcg Inhaler 8gm INH PRN (19:45)
[2017-07-28] MEDS ORDERED: TraZODone 50mg tab ORAL SCH (21:00)
[2017-07-28] MEDS ORDERED: Amiodarone 200mg tab ORAL SCH (21:00)
[2017-07-28] MEDS ORDERED: Epogen (for ESRD on dialysis) SUBQ SCH (21:00)
--- NOTE | 2017-07-29 01:00 | Consultation ---
DATE OF CONSULTATION: 07/28/2017 CARDIOLOGY CONSULTATION REFERRING PHYSICIAN: Karson Baker M.D. REASON FOR CONSULTATION: Management of atrial fibrillation, congestive heart failure in a patient with history of open heart surgery. HISTORY OF PRESENT ILLNESS: The patient is a 71-year-old gentleman with history of hypertension and atrial fibrillation as well as history of bioprosthetic cardiac valve surgery who also has end-stage renal disease, on hemodialysis. The patient also has recent left femoral neck fracture due to fall status post open reduction and internal fixation on 06/09/2017. The patient presented to [facility] with rectal bleeding, melena and black stools. The patient was seen by her rn women services, scheduled for enteroscopy, which was performed on 07/20/2017 that showed polyp and AVM and underwent clip placement. The patient was discharged on 07/21/2017. The patient was transferred to [facility] for further evaluation and management. REVIEW OF SYSTEMS: Review of systems was performed and was negative other than what was mentioned in the history of present illness. PAST MEDICAL HISTORY: 1. Hypertension. 2. Chronic atrial fibrillation. 3. History of bioprosthetic cardiac valve surgery. 4. Chronic diastolic dysfunction. 5. COPD. 6. End-stage renal disease, on hemodialysis. 7. History of polycystic kidney disease. 8. . 9. Renal cell carcinoma. 10. Lung cancer diagnosed in 12/[address] Nunn at [facility]. PAST SURGICAL HISTORY: 1. Bilateral nephrectomy. 2. Left knee surgery. 3. Left tibial-fibular open reduction and internal fixation. 4. Mechanical tricuspid valve porcine valve placement. 5. Left inguinal hernia surgery. 6. Left AV graft. MEDICATIONS: Amiodarone, Coumadin, and aspirin. ALLERGIES: He is allergic to penicillin and ibuprofen. SOCIAL HISTORY: He is single. Does not smoke or drink alcohol. PHYSICAL EXAMINATION: VITAL SIGNS: Blood pressure is 89/67, pulse 96, respirations 18, and he is afebrile. HEAD AND NECK: No JVD. LUNGS: Decreased breath sounds. CARDIOVASCULAR: Irregular S1 and S2 with no gallop or murmur. ABDOMEN: Soft and he has a sternotomy scar that is healed. EXTREMITIES: No pitting edema. His AV shunt is in the left arm. LABORATORY AND DIAGNOSTIC DATA: His EKG showed atrial fibrillation with a ventricular response of 71. Labs show white count of 5.7, hemoglobin 9.6, hematocrit 31.3, and platelet count of 116. Sodium 134, potassium 3.5, BUN of 58, and creatinine 11 8. Troponin 1.49 and 1.48. BNP 57,000. ASSESSMENT AND PLAN: 1. Troponin elevation. Levels are flat at 1.49 and 1.49. This is likely due to the patient's renal failure. The patient denies any chest pain. His blood pressures in the 80s and we cannot use beta-chris. 2. Atrial fibrillation. Rate is currently controlled. Off any AV michael chris and is on Coumadin per pharmacy. 3. Status post bioprosthetic tricuspid valve replacement. We will try to check the records, get a confirmation. 4. History of renal cancer, status post nephrectomy, currently on hemodialysis per Dr. Rios. 5. Lung cancer. It was diagnosed in 2017. Further evaluation by Pulmonary and Oncology. 6. Polycystic kidney disease. 7. History of pulmonary embolism. Thank you very much, Dr. Baker, for allowing me to participate in the care of this patient. Please do not hesitate to contact me for any questions regarding my evaluation. Hollis Smith M.D. DR: GABRIEL JOB#: [id number] CC:
[2017-07-29] MEDS ORDERED: Midodrine 10mg tab ORAL SCH (09:00)
[2017-07-29] MEDS ORDERED: Sensipar 30mg Tab ORAL SCH (09:00)
[2017-07-29] MEDS ORDERED: Renvela 2400 mg pkt NG SCH (09:00)
[2017-07-29] MEDS ORDERED: Cefepime HCl 1 GM in D5W 55 ML IVPB SCH (09:00)
[2017-07-29] MEDS ORDERED: Docusate 100mg cap ORAL SCH (09:00)
--- NOTE | 2017-07-29 14:32 | Cardiology Report ---
APPROVED REPORT EXAM: Two-dimensional and M-mode echocardiogram with Doppler and color Doppler. INDICATION Congestive Heart Failure M-Mode DIMENSIONS IVSd0.8 (0.7-1.1cm)Left Atrium (MM)3.4 (1.6-4.0cm) LVDd4.0 (3.5-5.6cm)Aortic Root3.5 (2.0-3.7cm) PWd1.3 (0.7-1.1cm)Aortic Cusp Exc.1.5 (1.5-2.0cm) IVSs1.4 cm LVDs2.2 (2.5-4.0cm) PWs1.6 cm Technically difficult study due to poor acoustical windows. Normal left ventricular chamber size, systolic function and wall motion. Left ventricular ejection fraction estimated to be 55-60%. No evidence of left ventricular hypertrophy. Moderate right ventricular dilatation with associated right ventricular volume and pressure overload causign D-shaped septum. Mild right atrial enlargement. Focal aortic valve sclerosis with adequate cusp excursion. Mitral valve bioprosthesis is seen and appears to function appropriately. Mild mitral annulus and aortic root calcification. Pulmonic valve is visualized. Normal tricuspid valve structure. IVC is normal in size and collapsible with respiration. No evidence of pericardial or pleural effusion. A color flow and spectral Doppler study was performed and revealed: No aortic regurgitation. Trace mitral regurgitation. Mitral P1/2 time of 61m/s is compatible with a mitral valve area of 3.6 cm2 Peak mitral valve diastolic gradient of 12 mmHg and a mean gradient of 5mmHg Moderate tricuspid regurgitation. Tricuspid systolic velocities suggests peak right ventricular systolic pressure of 64mmHg Consistent with severe pulmonary hypertension.
--- NOTE | 2017-07-29 14:45 | Cardiology Report ---
APPROVED REPORT EKG Measurement Heart [id number] P92 [id number] Suspect arm lead reversal, interpretation assumes no reversal Atrial flutter with variable AV block with premature ventricular or aberrantly conducted complexes Right bundle branch block T wave abnormality, consider inferior ischemia Abnormal ECG
--- NOTE | 2017-07-29 14:45 | Cardiology Report ---
APPROVED REPORT EKG Measurement Heart [id number] [place] P92 [id number] Suspect arm lead reversal, interpretation assumes no reversal Atrial flutter with variable AV block with premature ventricular or aberrantly conducted complexes Right bundle branch block T wave abnormality, consider inferior ischemia Abnormal ECG
--- NOTE | 2017-07-29 14:45 | Cardiology Report ---
APPROVED REPORT EKG Measurement Heart [id number] [place] P92 [id number] Suspect arm lead reversal, interpretation assumes no reversal Atrial flutter with variable AV block with premature ventricular or aberrantly conducted complexes Right bundle branch block T wave abnormality, consider inferior ischemia Abnormal ECG
[2017-07-29] MEDS ORDERED: Warfarin Sodium 5mg ORAL SCH (17:00)
[2017-07-29] MEDS ORDERED: Atorvastatin 80mg tab ORAL SCH (21:00)
--- NOTE | 2017-08-01 09:43 | Discharge Summary ---
Discharge Summary Hospital Course Date of Admission Jul 26, 2017 at 04:55 Date of Discharge Jul 28, 2017 at 18:50 Admitting Diagnosis HPI Aneesh Peraza is a 71 year old male who was admitted on Jul 26, 2017 at 04: 55 for Pneumonia Hospital Course dc summary #[id number] Discharge Discharge Disposition Patient signed AMA Discharge Diagnoses: Ricardo ([facility])Eliana NP Aug 01, 2017 09:43
--- NOTE | 2017-08-01 09:43 | Discharge Summary ---
Discharge Summary Hospital Course Date of Admission Jul 26, 2017 at 04:55 Date of Discharge Jul 28, 2017 at 18:50 Admitting Diagnosis HPI Aneesh Peraza is a 71 year old male who was admitted on Jul 26, 2017 at 04: 55 for Pneumonia Hospital Course dc summary #[id number] Discharge Discharge Disposition Patient signed AMA Discharge Diagnoses: Ricardo ([facility])Eliana NP Aug 01, 2017 09:43
--- NOTE | 2017-08-01 09:43 | Discharge Summary ---
Discharge Summary Hospital Course Date of Admission Jul 26, 2017 at 04:55 Date of Discharge Jul 28, 2017 at 18:50 Admitting Diagnosis HPI Aneesh Peraza is a 71 year old male who was admitted on Jul 26, 2017 at 04: 55 for Pneumonia Hospital Course dc summary #[id number] Discharge Discharge Disposition Patient signed AMA Discharge Diagnoses: Ricardo ([facility])Eliana NP Aug 01, 2017 09:43
--- NOTE | 2017-08-01 23:00 | Discharge Summary 2 SIG ---
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 The patient was transferred for further management to [facility] for insurance issues. The patient was admitted with cough, lung CA, end-stage renal disease, history of PE, and pulmonary hypertension. HOSPITAL COURSE: The patient was admitted. The patient was started to complain of chest pain on the medical/surgical floor. Troponin was checked and was elevated at 1.497. The patient was subsequently transferred to the telemetry floor. Serial troponin were obtained. Second troponin with a small trend down still elevated -1.264. Cardiology consult was requested and per telecommunication systems designer the elevated troponins were likely due to the end-stage renal disease. Analgesics provided for chest pain, pain subsided, and afterwards patient was asymptomatic, no shortness of breath, no acute ischemic changes. EKG showed atrial flutter with variable AV block with premature ventricular or aberrantly conducted complexes, right bundle-branch block, and T-wave abnormalities. Echocardiogram revealed ejection fraction of 55% to 60%, no evidence of left ventricular hypertrophy, right ventricular systolic pressure of 64, consistent with severe pulmonary hypertension and moderate tricuspid regurgitation noted. Mitral valve bioprosthesis seen and appeared to function appropriately. Supplemental oxygen was provided as needed. Pulmonary toilet was provided as needed. The patient was started on empiric antibiotics. Sputum culture was negative. Initial chest x-ray revealed bilateral middle lower lobe infiltrate versus edema and right-sided pleural effusion. The patient was afebrile. No leukocytosis. Low suspicion for pneumonia. Followup chest x-ray revealed similar findings. Venous duplex of bilateral lower extremities was negative. The patient follows with [facility] Radiation [facility]cology, Dr. Nunn. Coumadin was resumed to keep INR in the therapeutic range. patient was closely observed for bleeding, hemoglobin and hematocrit were clsoely monitored dye to history of GI leading, Amiodarone was continued. Redye Hand stated taht unable to start beta- chris due to the low blood pressure. The patient was started on the midodrine as per clay dry press mixer operator to keep blood pressure stable. Hemodialysis was done as per clay dry press mixer operator. Renal parameters and electrolytes were closely monitored and replaced as needed. GI prophylaxis was provided. Hemoglobin and hematocrit were closely monitored. Anemia workup was consistent with anemia of chronic disease, likely renal disease , high ferritin noted. The patient was started on Epogen. Stool OB was negative. Hepatitis panel was negative. On 07/28/2017 late afternoon, the patient became agitated and refused nursing care and medications. Patient was insisted on signing against medical advice. Message was left to the attending physician by nursing staff. The risks and consequences of signing against medical advice were discussed with the patient. The patient verbalized understanding, signed the form and left. FINAL DIAGNOSES: 1. Elevated troponin, likely due to end-stage renal disease. 2. Cough 3. Possible bronchitis. 4. Lung cancer. 5. Severe pulmonary hypertension. 6. Chronic diastolic congestive heart failure. 7. History of pulmonary embolism. 8. Atrial fibrillation/atrial flutter. 9. End-stage renal disease, on hemodialysis. 10. Anemia of chronic renal disease. 11. 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 12. History of mitral valve replacement. Karson Baker M.D. [facility] N.PAndrade DR: MORRIS JOB#: [id number] CC: DOMENICA
--- NOTE | 2017-08-01 23:00 | Discharge Summary 2 SIG ---
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 The patient was transferred for further management to [facility] for insurance issues. The patient was admitted with cough, lung CA, end-stage renal disease, history of PE, and pulmonary hypertension. HOSPITAL COURSE: The patient was admitted. The patient was started to complain of chest pain on the medical/surgical floor. Troponin was checked and was elevated at 1.497. The patient was subsequently transferred to the telemetry floor. Serial troponin were obtained. Second troponin with a small trend down still elevated -1.264. Cardiology consult was requested and per treasurer the elevated troponins were likely due to the end-stage renal disease. Analgesics provided for chest pain, pain subsided, and afterwards patient was asymptomatic, no shortness of breath, no acute ischemic changes. EKG showed atrial flutter with variable AV block with premature ventricular or aberrantly conducted complexes, right bundle-branch block, and T-wave abnormalities. Echocardiogram revealed ejection fraction of 55% to 60%, no evidence of left ventricular hypertrophy, right ventricular systolic pressure of 64, consistent with severe pulmonary hypertension and moderate tricuspid regurgitation noted. Mitral valve bioprosthesis seen and appeared to function appropriately. Supplemental oxygen was provided as needed. Pulmonary toilet was provided as needed. The patient was started on empiric antibiotics. Sputum culture was negative. Initial chest x-ray revealed bilateral middle lower lobe infiltrate versus edema and right-sided pleural effusion. The patient was afebrile. No leukocytosis. Low suspicion for pneumonia. Followup chest x-ray revealed similar findings. Venous duplex of bilateral lower extremities was negative. The patient follows with [facility] Radiation Oncology, Dr. Nunn. Coumadin was resumed to keep INR in the therapeutic range. patient was closely observed for bleeding, hemoglobin and hematocrit were clsoely monitored dye to history of GI leading, Amiodarone was continued. Back Stayer stated taht unable to start beta- chris due to the low blood pressure. The patient was started on the midodrine as per aircraft structural design engineer to keep blood pressure stable. Hemodialysis was done as per aircraft structural design engineer. Renal parameters and electrolytes were closely monitored and replaced as needed. GI prophylaxis was provided. Hemoglobin and hematocrit were closely monitored. Anemia workup was consistent with anemia of chronic disease, likely renal disease , high ferritin noted. The patient was started on Epogen. Stool OB was negative. Hepatitis panel was negative. On 07/28/2017 late afternoon, the patient became agitated and refused nursing care and medications. Patient was insisted on signing against medical advice. Message was left to the attending physician by nursing staff. The risks and consequences of signing against medical advice were discussed with the patient. The patient verbalized understanding, signed the form and left. FINAL DIAGNOSES: 1. Elevated troponin, likely due to end-stage renal disease. 2. Cough 3. Possible bronchitis. 4. Lung cancer. 5. Severe pulmonary hypertension. 6. Chronic diastolic congestive heart failure. 7. History of pulmonary embolism. 8. Atrial fibrillation/atrial flutter. 9. End-stage renal disease, on hemodialysis. 10. Anemia of chronic renal disease. 11. 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 12. History of mitral valve replacement. Karson Baker M.D. [facility]) N.PAndrade DR: MORRIS JOB#: [id number] CC: DOMENICA
--- NOTE | 2017-08-01 23:00 | Discharge Summary 2 SIG ---
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 The patient was transferred for further management to [facility] for insurance issues. The patient was admitted with cough, lung CA, end-stage renal disease, history of PE, and pulmonary hypertension. HOSPITAL COURSE: The patient was admitted. The patient was started to complain of chest pain on the medical/surgical floor. Troponin was checked and was elevated at 1.497. The patient was subsequently transferred to the telemetry floor. Serial troponin were obtained. Second troponin with a small trend down still elevated -1.264. Cardiology consult was requested and per hoop riveting machine operator helper the elevated troponins were likely due to the end-stage renal disease. Analgesics provided for chest pain, pain subsided, and afterwards patient was asymptomatic, no shortness of breath, no acute ischemic changes. EKG showed atrial flutter with variable AV block with premature ventricular or aberrantly conducted complexes, right bundle-branch block, and T-wave abnormalities. Echocardiogram revealed ejection fraction of 55% to 60%, no evidence of left ventricular hypertrophy, right ventricular systolic pressure of 64, consistent with severe pulmonary hypertension and moderate tricuspid regurgitation noted. Mitral valve bioprosthesis seen and appeared to function appropriately. Supplemental oxygen was provided as needed. Pulmonary toilet was provided as needed. The patient was started on empiric antibiotics. Sputum culture was negative. Initial chest x-ray revealed bilateral middle lower lobe infiltrate versus edema and right-sided pleural effusion. The patient was afebrile. No leukocytosis. Low suspicion for pneumonia. Followup chest x-ray revealed similar findings. Venous duplex of bilateral lower extremities was negative. The patient follows with [facility], Dr. Nunn. Coumadin was resumed to keep INR in the therapeutic range. patient was closely observed for bleeding, hemoglobin and hematocrit were clsoely monitored dye to history of GI leading, Amiodarone was continued. Paper Sealer stated taht unable to start beta- chris due to the low blood pressure. The patient was started on the midodrine as per associate technician to keep blood pressure stable. Hemodialysis was done as per associate technician. Renal parameters and electrolytes were closely monitored and replaced as needed. GI prophylaxis was provided. Hemoglobin and hematocrit were closely monitored. Anemia workup was consistent with anemia of chronic disease, likely renal disease , high ferritin noted. The patient was started on Epogen. Stool OB was negative. Hepatitis panel was negative. On 07/28/2017 late afternoon, the patient became agitated and refused nursing care and medications. Patient was insisted on signing against medical advice. Message was left to the attending physician by nursing staff. The risks and consequences of signing against medical advice were discussed with the patient. The patient verbalized understanding, signed the form and left. FINAL DIAGNOSES: 1. Elevated troponin, likely due to end-stage renal disease. 2. Cough 3. Possible bronchitis. 4. Lung cancer. 5. Severe pulmonary hypertension. 6. Chronic diastolic congestive heart failure. 7. History of pulmonary embolism. 8. Atrial fibrillation/atrial flutter. 9. End-stage renal disease, on hemodialysis. 10. Anemia of chronic renal disease. 11. 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 12. History of mitral valve replacement. Karson Baker M.D. [facility] N.PAndrade DR: MORRIS JOB#: [id number] CC: DOMENICA
== END 2017-07-28 18:50 | disposition left against medical advice (07) | DRG 180 ==
LOC: 4W 04:55 → 4E 16:39 → 2E 07-28 10:12
PROC: 5A1D70Z Performance of Urinary Filtration, Intermittent, Less than 6 Hours Per Day (ICD-10-PCS; principal; 2017-07-26)
DX: C34.90 Malignant neoplasm of unspecified part of unspecified bronchus or lung (principal); N18.6 End stage renal disease; I12.0 Hypertensive chronic kidney disease with stage 5 chronic kidney disease or end stage renal disease; I50.32 Chronic diastolic (congestive) heart failure; I95.9 Hypotension, unspecified; I27.20 Pulmonary hypertension, unspecified; Q61.3 Polycystic kidney, unspecified; I48.2 Chronic atrial fibrillation; J44.9 Chronic obstructive pulmonary disease, unspecified; Z99.2 Dependence on renal dialysis; Z87.891 Personal history of nicotine dependence; Z95.3 Presence of xenogenic heart valve; Z79.01 Long term (current) use of anticoagulants; Z88.6 Allergy status to analgesic agent; Z88.0 Allergy status to penicillin; Z86.711 Personal history of pulmonary embolism; D63.1 Anemia in chronic kidney disease; Z85.528 Personal history of other malignant neoplasm of kidney; Z90.5 Acquired absence of kidney; I44.30 Unspecified atrioventricular block; I45.10 Unspecified right bundle-branch block; I07.1 Rheumatic tricuspid insufficiency; Z95.2 Presence of prosthetic heart valve
CPT/HCPCS: 36415; 71010; 80048; 80053; 80202; 82270; 82607; 82728; 82746; 83540; 83550; 83735; 83880; 84100; 84484; 84550; 85025; 85610; 85730; 86140; 86705; 86709; 86803; 87070; 87081; 87205; 87340; 93005; 93306; 93970; 94640; 94664; 94760

== ENCOUNTER → 2017-08-02 | Emergency (ER) | payer MEDICARE, OTHER ==
[~2017-08-02] VITALS: Ht 188 cm; Wt 84.4 kg
[2017-08-02 00:23] VITALS: BP 147/92
--- NOTE | 2017-08-02 03:24 | Emergency Room Report ---
History of Present Illness General Chief Complaint: Dyspnea/Respdistress Source: Patient, Medical Record Present Illness Allergies: Coded Allergies: IBUPROFEN (Verified Allergy, Unknown, 11/14/11) PENICILLIN G (Verified Allergy, Unknown, 11/14/11) PENICILLINS (Unverified Allergy, Unknown, 08/02/17) Nursing Documentation-PMH Hx Cardiac Problems: Yes - Mechanical valve, "blood clots" Hx Cancer: Yes - Lung Cancer, Ulcer Hx Dialysis: Yes - MWF + Sat Hx Neurological Problems: Yes Hx Head Trauma: Yes - closed head injury Hx Dizziness: Yes Hx Syncope: Yes Physical Exam Vital Signs Date Time Temp Pulse Resp B/P (MAP) Pulse Ox O2 Delivery O2 Flow Rate FiO2 08/02/17 00:03 86 18 147/92 98 Room Air 08/02/17 00:23 98 Medical Decision Making ER Course Patient eloped before I could see him Last Vital Signs Date Time Temp Pulse Resp B/P (MAP) Pulse Ox O2 Delivery O2 Flow Rate FiO2 08/02/17 01:02 85/52 08/02/17 00:23 86 18 Room Air 98 08/02/17 00:23 98 Disposition: ELOPED Referrals: NOT CHOSEN FISH/,REFERRING (PCP) DAYANA CANELA M.D. Aug 02, 2017 03:24
== END | disposition left against medical advice (07) ==
LOC: EDUNIT# 00:03 → EDBD 00:17 → EMR 01:19
DX: R06.00 Dyspnea, unspecified (principal); Z53.21 Procedure and treatment not carried out due to patient leaving prior to being seen by health care provider; Z85.118 Personal history of other malignant neoplasm of bronchus and lung; Z88.0 Allergy status to penicillin; Z88.6 Allergy status to analgesic agent
CPT/HCPCS: 99282

== ENCOUNTER 2018-06-11 08:10 | Emergency (ER) | payer MEDICARE, OTHER ==
[~2018-06-11] VITALS: Ht 188 cm; Wt 86.2 kg
--- NOTE | 2018-06-11 08:55 | Emergency Room Report ---
History of Present Illness General Chief Complaint: Lower Extremity Injury Source: Patient Present Illness HPI This patient states that 3 days ago he tripped and fell onto his shins. He states he has pain primarily in the right middle styles. He also has pain in the left styles but not as bad as the right styles. He states that he had an open wound there and it was bleeding but the bleeding has been controlled for the past couple days. He is dialysis dependent and has dialysis tonight at 6 PM. He is also had some swelling in the right leg since the injury. He denies chest pain or shortness of breath. He denies abdominal pain. He denies other injury or complaints. Allergies: Coded Allergies: IBUPROFEN (Verified Allergy, Unknown, 11/14/11) PENICILLIN G (Verified Allergy, Unknown, 11/14/11) PENICILLINS (Unverified Allergy, Unknown, 08/02/17) Patient History Past Medical History: see triage record, HTN, PR, CAD, AFib, renal disease - PCKD, dialysis, other - mechanical valve, Lung CA Social History: Denies: smoking, alcohol use, drug use Reviewed Nursing Documentation: PMH: Agreed; PSxH: Agreed Nursing Documentation-PMH Hx Cardiac Problems: Yes - Mechanical valve, "blood clots" Hx Hypertension: No - hypotention Hx Cancer: Yes - Lung Cancer, Ulcer Hx Dialysis: Yes - MWF Hx Neurological Problems: Yes Hx Head Trauma: Yes - closed head injury Hx Dizziness: Yes Hx Syncope: Yes Review of Systems All Other Systems: negative except mentioned in HPI Physical Exam Vital Signs Date Time Temp Pulse Resp B/P (MAP) Pulse Ox O2 Delivery O2 Flow Rate FiO2 06/11/18 08:16 97.8 114 19 103/69 91 Room Air 97.9 Sp02 EP Interpretation: reviewed, normal General Appearance: no apparent distress, alert, GCS 15, non-toxic Head: normocephalic, atraumatic Eyes: bilateral eye normal inspection, bilateral eye PERRL ENT: hearing grossly normal, normal pharynx, no angioedema, normal voice Neck: full range of motion, supple/symm/no masses Respiratory: chest non-tender, lungs clear, normal breath sounds, no respiratory distress, no retraction, no accessory muscle use, speaking full sentences Cardiovascular #1: regular rate, rhythm, no edema Gastrointestinal: normal bowel sounds, non tender, soft, non-distended, no guarding, no rebound Rectal: deferred Musculoskeletal: back normal, gait/station normal, normal range of motion, swelling - RLE, +1 edema, R. mid styles with golf ball sized swelling/ecchymosis and ttp. No deformity palpated. Neurologic: alert, oriented x3, responsive, motor strength/tone normal, sensory intact, speech normal Psychiatric: judgement/insight normal, memory normal, mood/affect normal, no suicidal/homicidal ideation Skin: no rash, warm/dry, well hydrated, other - See above in MSK Medical Decision Making Diagnostic Impression: Primary Impression: Contusion of leg, right ER Course This patient has a contusion in his right mid styles. There is no evidence of infection at this time. Appears to be a contusion with some ecchymoses. X- rays of the tib-fib is negative. I also obtained left tib-fib x-rays which were also unremarkable. The patient complained of pain in this area and states that he has pins in this leg. The patient also had swelling noted on exam of his right lower extremity, given the patient's history, he is high risk for DVT. Therefore, I obtained in ultrasound of the right lower extremity to assess for DVT which showed no evidence of DVT. The patient is given return precautions and follow-up instructions. Other X-Ray Diagnostic Results Other X-Ray Diagnostic Results : X-Ray ordered: R. tib/fib, L. tib/fib # of Views/Limited Vs Complete: Complete Indication: Pain EP Interpretation: Yes Interpretation: no fractures Impression: No acute disease - See official report in EMR Electronically Signed by: Antonio CT/MRI/US Diagnostic Results CT/MRI/US Diagnostic Results : Imaging Test Ordered: US venous doppler RLE Impression No DVT. See official report in EMR. Last Vital Signs Date Time Temp Pulse Resp B/P (MAP) Pulse Ox O2 Delivery O2 Flow Rate FiO2 06/11/18 08:16 97.8 114 19 103/69 91 Room Air 97.9 Status: improved Disposition: HOME, SELF-CARE Condition: Improved Referrals: NOT CHOSEN IPA/,REFERRING (PCP) Pushpa Yao DO Jun 11, 2018 08:55
--- NOTE | 2018-06-11 10:58 | Diagnostic Imaging Report ---
Indication: Pain, trauma Technique: XRAY Leg Lower Tib Fib 2v R Comparison: 04/13/2014 Findings: Bone mineralization appears within normal limits. There is no acute fracture or dislocation. There is degenerative change of the partially imaged right knee with joint space narrowing. Ankle mortise is intact. There is a small dorsal and plantar calcaneal enthesophytes. No definite focal soft tissue abnormality is appreciated. No radiopaque foreign body seen. There are atherosclerotic vascular calcifications. IMPRESSION: No evidence of acute fracture or dislocation. Degenerative change of the right knee partially visualized. Atherosclerotic disease. Small dorsal and plantar calcaneal enthesophytes.
--- NOTE | 2018-06-11 11:03 | Diagnostic Imaging Report ---
Indication: Pain, trauma Technique: XRAY Leg Lower Tib Fib 2v left para Comparison: Comparison made to left knee radiographs 11/15/2011 Findings: Patient again noted to be status post left total knee replacement with patellar resurfacing. There is no evidence of periprosthetic fracture or other hardware-related complication.. Additionally there are 2 screws in the mid/distal shaft of the tibia likely affixing a chronic fracture through this region. There is a subtle horizontal lucency through this region which may be related to remote trauma. No definite evidence to suggest an acute fracture. Partially imaged ankle joint intact. No definite soft tissue abnormality identified. There are atherosclerotic gastric calcifications. Impression: * Subtle oblique lucency through the mid/distal shaft of the left tibia where there are some fixation screws. Findings likely related to remote injury. No associated cortical break to suggest acute fracture. * Prior left total knee replacement. No evidence of hardware-related complication. * Atherosclerotic disease.
[2018-06-11 11:22] VITALS: BP 110/71
[2018-06-11 11:32] VITALS: BP 110/71
--- NOTE | 2018-06-11 13:09 | Diagnostic Imaging Report ---
Indication: Right leg pain and swelling Technique: Grayscale and duplex Doppler imaging of the veins in right lower cavity performed in real time utilizing compression. Comparison: None Findings: Duplex Doppler interrogation of the veins in right lower extremity is performed from the common femoral vein to the popliteal vein. Normal venous compressibility demonstrated throughout. No thrombus identified. Waveform analysis shows good respiratory phasicity and normal color flow. Ultrasound imaging was also performed of the right calf vessels. The visualized portions of the right posterior tibial and right peroneal veins demonstrate normal compressibility and normal color flow. Anterior tibial vein demonstrates normal color flow. Dorsalis pedis vein was also interrogated and is noted to be patent. Some mild subcutaneous emphysema is noted in the right calf. IMPRESSION: No evidence of right lower extremity deep venous thrombosis. This corresponds with the preliminary report issued to the emergency department by the scanning dental technologist.
== END 2018-06-11 11:32 | disposition home or self-care (01) ==
LOC: EMR 08:48
DX: S80.11XA Contusion of right lower leg, initial encounter (principal); I12.0 Hypertensive chronic kidney disease with stage 5 chronic kidney disease or end stage renal disease; N18.6 End stage renal disease; Z99.2 Dependence on renal dialysis; I25.2 Old myocardial infarction; I25.10 Atherosclerotic heart disease of native coronary artery without angina pectoris; Z85.118 Personal history of other malignant neoplasm of bronchus and lung; Z99.81 Dependence on supplemental oxygen; Z95.2 Presence of prosthetic heart valve; Z88.0 Allergy status to penicillin; Z88.8 Allergy status to other drugs, medicaments and biological substances; W01.0XXA Fall on same level from slipping, tripping and stumbling without subsequent striking against object, initial encounter; Y92.89 Other specified places as the place of occurrence of the external cause
CPT/HCPCS: 93971; 99284

== ENCOUNTER 2018-11-23 08:29 | Emergency (ER) | payer MEDICARE, OTHER ==
[~2018-11-23] VITALS: Ht 188 cm; Wt 77.1 kg
[2018-11-23 09:00] VITALS: BP 97/59
--- NOTE | 2018-11-23 09:00 | NUR ---
ED Nurse Note: pt walked in to ED due to rigth hip pain that radiated to right leg and foot for 1 week. per pt, pain started after he was sat on toilet for long time. no recent injury or trauma reported. AAO x4. respirations even and non-labored noted. skin warm to touch. no open wound noted. will wait for the further order.
[2018-11-23] MEDS ORDERED: Acetaminophen 500mg (ES) tab ORAL ONE (09:30)
--- NOTE | 2018-11-23 10:21 | NUR ---
ED Nurse Note: per radiologist, pt unable to stay in supine position for imagine due to pain. unable to finished the test. will notified Dr. Lee.
--- NOTE | 2018-11-23 10:35 | Emergency Room Report ---
History of Present Illness General Chief Complaint: Pain Source: Patient, Medical Record Present Illness HPI This patient states that after he stood up a few days ago after having been sitting for some time, he developed pain in his right buttock radiating down to his ankle. He states that the pain is worse with movement. He describes it as shooting and sharp. He describes it as electric shock like. He denies back pain. He denies weakness. He denies tingling or numbness. He denies fever or chills. He denies loss of bowel or bladder control. He has no other complaints. Allergies: Coded Allergies: IBUPROFEN (Verified Allergy, Unknown, 11/14/11) PENICILLIN G (Verified Allergy, Unknown, 11/14/11) PENICILLINS (Unverified Allergy, Unknown, 08/02/17) Patient History Past Medical History: AFib, renal disease, dialysis, other - Lung CA Past Surgical History: other - Valve replacement, bilateral nephrectomy Social History: Denies: smoking, alcohol use, drug use Reviewed Nursing Documentation: PMH: Agreed; PSxH: Agreed Nursing Documentation-PMH Past Medical History: No History, Except For Hx Cardiac Problems: Yes - Mechanical valve, "blood clots" Hx Hypertension: No - hypotention Hx Cancer: Yes - Lung Cancer, Ulcer Hx Dialysis: Yes - MWF Hx Neurological Problems: Yes Hx Head Trauma: Yes - closed head injury Hx Dizziness: Yes Hx Syncope: Yes Review of Systems All Other Systems: negative except mentioned in HPI Physical Exam Vital Signs Date Time Temp Pulse Resp B/P (MAP) Pulse Ox O2 Delivery O2 Flow Rate FiO2 11/23/18 08:50 97.5 84 16 97/59 92 Room Air Sp02 EP Interpretation: reviewed, normal General Appearance: no apparent distress, alert, GCS 15, non-toxic Head: normocephalic, atraumatic Eyes: bilateral eye normal inspection, bilateral eye PERRL ENT: hearing grossly normal, normal pharynx, no angioedema, normal voice Neck: normal inspection Respiratory: no respiratory distress, no retraction, no accessory muscle use, speaking full sentences Rectal: deferred Musculoskeletal: back normal, normal range of motion, tender - TTP over the R. piriformis m. that reproduces the patients sx (shooting pain down the leg). Neurologic: alert, oriented x3, responsive, motor strength/tone normal, sensory intact, speech normal Psychiatric: judgement/insight normal, memory normal, mood/affect normal, no suicidal/homicidal ideation Skin: normal color, no rash, warm/dry, well hydrated Medical Decision Making Diagnostic Impression: Primary Impression: Sciatica of right side ER Course This patient has a clinical presentation consistent with sciatica. There are no red flags on physical exam. The patient denies any concerning features such as trauma, fevers, night sweats, pain worse at night, IV drug abuse, urinary/ fecal incontinence or retention, focal weakness or change in sensation, or refractory pain. The patient does have a history of malignancy, so I did obtain a lumbar spine x-ray and hip x-ray to assess the structure of the bones. These x-ray showed .... Given these pertinent negatives in the history and physical exam an emergent cause of the back pain such as epidural abscess, metastasis to bone, cauda equina syndrome, and fracture is less likely. The patient was counseled that, though unlikely, the possibility of an emergent cause of his pain may still be present and that the patient should return immediately if symptoms persist or worsen. The symptoms are reproducible with movement. Patient had a benign evaluation and neurologic examination. No emergency etiology was identified. Other X-Ray Diagnostic Results Other X-Ray Diagnostic Results : X-Ray ordered: L. spine, R. hip # of Views/Limited Vs Complete: Complete Indication: Pain EP Interpretation: Yes Interpretation: no dislocation, no fractures Impression: No acute disease - See official report in the electronic medical record. Electronically Signed by: Pushpa Yao DO Last Vital Signs Date Time Temp Pulse Resp B/P (MAP) Pulse Ox O2 Delivery O2 Flow Rate FiO2 11/23/18 09:00 97.5 84 16 97/59 95 Room Air Status: improved Disposition: HOME, SELF-CARE Condition: Improved Referrals: NON PHYSICIAN (PCP) Pushpa Yao DO Nov 23, 2018 10:35
[2018-11-23] MEDS ORDERED: traMADol 50mg tab ORAL ONE (10:45)
--- NOTE | 2018-11-23 11:05 | NUR ---
HAND-OFF: Report given to CIERRA Eddy.
--- NOTE | 2018-11-23 11:21 | NUR ---
ED Nurse Note: received report from CIERRA [place] and endorsed care, pt resting in bed, reports pain is better and can try xray again, called radiology. 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
--- NOTE | 2018-11-23 12:50 | NUR ---
ED Nurse Note: PT CAME BACK FROM XRAY, PT STATED HE WAS ABLE TO TOLERATE WELL. WILL CONT MONITOR.
--- NOTE | 2018-11-23 13:07 | Diagnostic Imaging Report ---
Indication: Hip pain Technique: 2 views of the right hip Comparison: none Findings: No acute fractures. No dislocations. The joint spaces are preserved. Surgical thomas are seen in the right inguinal region. Surgical hardware is seen in the left hip Impression: Negative
--- NOTE | 2018-11-23 13:10 | Diagnostic Imaging Report ---
Indication: Pain, trauma Technique: 3 views of the lumbar spine Comparison: None Findings: There is slight anterior offset of L4 on L5. The remainder the bony alignment is normal. Vertebral body heights are preserved. There is degenerative disc narrowing at L5-S1, and to a lesser extent at L3-4 and L4-5. The remaining disc spaces are preserved. No definite acute fractures. No dislocations. The L3, L4, and L5 spinous processes are not visualized on the lateral view, suspect surgically absent. AP view is somewhat limited due to excessive overlying bowel gas. Eggshell calcification projects in the right upper quadrant. Surgical anastomotic thomas are seen to the right of the lumbar spine. Impression: Degenerative changes, as described No definite acute bony trauma
[2018-11-23] MEDS ORDERED: TRAMADOL HCL50 MG ORAL (14:13)
[2018-11-23 14:31] VITALS: BP 110/68
--- NOTE | 2018-11-23 14:32 | NUR ---
ED Nurse Note: pt cleared to be d/c per ERMD, pt discharge/aftercare instruction w/ prescription provided, pt education done via discussion and hand out, pt advised to follow up with pcp or return to ed if sx worsen or new sx develop, pt verbalized understanding and agrees with plan, pt vss, ambulatory w/ cane w/ steady gait, all belongings left w/ pt. wristband removed.
== END 2018-11-23 14:33 | disposition home or self-care (01) ==
LOC: EMR 09:08
DX: M54.31 Sciatica, right side (principal); I48.91 Unspecified atrial fibrillation; Z85.118 Personal history of other malignant neoplasm of bronchus and lung; Z95.2 Presence of prosthetic heart valve; Z88.0 Allergy status to penicillin; Z88.6 Allergy status to analgesic agent
CPT/HCPCS: 72110; 99283